=== PATIENT | male | born 1965 | race African-American/Black ===

== ENCOUNTER 2017-09-05 20:37 | Observation (INO) | payer MEDICARE, MEDICAID ==
[~2017-09-05 20:37] MED LIST: ISOVUE-370 76%-LOCM 1 ML ONE
--- NOTE | 2017-09-05 21:28 | RAD ---
PORTABLE AP CHEST X-RAY: 09/05/17 HISTORY: Pain in mid to lower back and chest. Chest pain upon inspiration. COMPARISON: None available. FINDINGS: Cardiac silhouette and bronchovascular markings are accentuated by the portable technique and shallow depth of inspiration. The lungs do appear clear. Postsurgical changes of the lower cervical spine re lated to anterior cervical fusion are noted. Degenerative changes are noted in the thoracic spine. IMPRESSION: No acute cardiopulmonary process. POS: GALINDO
[2017-09-05 22:14] LABS: #Basophils 0.1 thou/uL (0.0-0.2); #Eosinphils 0.1 thou/uL (0.0-0.7); #Lymphocytes 2.5 thou/uL (1.20-3.40); #Monocytes 0.6 thou/uL (0.11-0.59); #Neutrophils 3.9 thou/uL (1.40-6.50); %Basophils 0.9 % (0.0-1.0); %Eosinophils 1.2 % (0.0-10.0); %Lymphocytes 35.2 % (21.0-51.0); %Monocytes 8.3 % (0.0-10.0); %Neutrophils 54.4 % (42.0-75.0); Hemoglobin 11.5 g/dL (14.0-18.0); Mean Corpuscular HGB CONC 34.8 g/dL (32.0-36.0); Mean Corpuscular Hemoglobin 30.9 pg (27.0-31.0); Mean Corpuscular Volume 88.9 fL (78.0-98.0); Mean Platelet Volume 5.7 fL (7.4-10.4); Platelet Count 406 thou/uL (130-400); RBC Distribution Width 12.9 % (11.5-14.5); White Blood Cell (WBC) Count 7.1 thou/uL (4.8-10.8)
[2017-09-05 22:35] LABS: ALT (SGPT) 11 U/L (8-55); AST (SGOT) 8 U/L (5-34); Albumin 3.6 g/dL (3.5-5.0); Alkaline Phosphatase 110 U/L (40-150); Anion Gap 11 mmol/L (10-20); BUN (Urea Nitrogen) 17 mg/dL (8.4-25.7); Bilirubin, Total 0.3 mg/dL (0.2-1.2); Calc. Creatinine Clearance 0 mL/min (70-130); Calcium 9.6 mg/dL (7.8-10.44); Carbon Dioxide 24 mmol/L (22-29); Chloride 109 mmol/L (98-107); Estimated GFR-MDRD 63; Globulin 2.9 g/dL (2.4-3.5); Glucose 121 mg/dL (70-105); Potassium 3.6 mmol/L (3.5-5.1); Protein, Total 6.5 g/dL (6.0-8.3); Sodium 140 mmol/L (136-145)
[2017-09-05 22:39] LABS: CKMB 1.4 ng/mL (0-6.6); Troponin I Less than 0.010 ng/mL (< 0.028)
--- NOTE | 2017-09-06 00:03 | CT ---
CTA ANGIOGRAM THORAX WITH IV CONTRAST AND 3D RECONSTRUCTIONS: 09/05/17 HISTORY: Chest pain with onset of symptoms two days ago. FINDINGS: No filling defects are seen in the central or segmental pulmonary arteries. There is suboptimal evalu ation of the subsegmental pulmonary arteries although no definite filling defects are seen at this le sadia as well. Thoracic aorta is normal in caliber without evidence of an aortic dissection. There are linear bibasilar densities as well as patchy parenchymal changes at each lung base probably related to atelectasis. No pleural effusion is present. There is no evidence of lymphadenopathy. Due to significant artifact in the upper abdomen, the intra-abdominal structures are note well evalua elizabeth due to significant artifact. No gross abnormalities are seen within the upper abdomen. Degenerative changes are seen in the spine. Postsurgical changes of the lower cervical spine are partially imaged related to anterior cervical fu solis. There is prominent degenerative changes involving the sternoclavicular joints bilaterally. IMPRESSION: 1. No CT evidence of a pulmonary embolus. 2. Atelectasis at each lung base. POS: GALINDO
[2017-09-06 01:19] LABS: Troponin I Less than 0.010 ng/mL (< 0.028)
[2017-09-06 05:08] LABS: Troponin I Less than 0.010 ng/mL (< 0.028)
[2017-09-06] MEDS ORDERED: HYDROcodone/Acetaminophen 5/325 mg Tablet PO PRN ×2 (05:31→10:11)
[2017-09-06] MEDS ORDERED: HYDROcodone/Acetaminophen 10/325 mg Tablet PO PRN ×2 (09:45→10:11)
[2017-09-06] MEDS ORDERED: Eucerin (Mineral Oil/Petrolatum,White) 30 gm Jar TOP PRN (09:46)
[2017-09-06] MEDS ORDERED: Polyethylene Glycol 3350 17 GM Packet PO PRN (09:46)
[2017-09-06] MEDS ORDERED: Aspirin 81 mg Enteric Coated Tablet PO SCH (11:30)
[2017-09-06] MEDS: HYDROcodone/Acetaminophen 10/325 mg Tablet PO PRN ×2 (11:52→19:06)
[2017-09-06] MEDS ORDERED: Ondansetron HCl/PF 4 MG/2 ML Vial IVP PRN (11:53)
[2017-09-06] MEDS ORDERED: Dextrose 50% Abboject 50 ML SYRINGE SLOW IVP PRN (11:53)
[2017-09-06] MEDS ORDERED: Dextrose 5% in Water 1,000 ML IV PRN (11:53)
[2017-09-06] MEDS ORDERED: Mag-Al 1200 mg/1200 mg/30 ML UDCUP PO PRN (11:53)
[2017-09-06] MEDS ORDERED: Acetaminophen 325 MG TAB PO PRN (11:53)
[2017-09-06] MEDS ORDERED: Milk Of Magnesia 30 ML UDCUP PO PRN (11:53)
[2017-09-06] MEDS ORDERED: Calcium Carbonate 500 MG ChewTAB PO PRN (11:53)
[2017-09-06] MEDS ORDERED: Insulin Regular 300 UNITS/3 ML VIAL SC PRN (11:53)
[2017-09-06] MEDS ORDERED: Bisacodyl 10 MG SUPP PR PRN (11:53)
[2017-09-06] MEDS ORDERED: Ondansetron ODT 4 MG TAB PO PRN (11:53)
[2017-09-06] MEDS ORDERED: Nitroglycerin 0.4 MG TAB (25 Tab Bottle) PO PRN (11:53)
[2017-09-06] MEDS ORDERED: ALPRAZolam 0.25 MG TAB PO PRN (11:56)
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
[2017-09-06] MEDS ORDERED: Tamsulosin HCl 0.4 MG CAP PO SCH (12:30)
--- NOTE | 2017-09-06 15:32 | DIS ---
DATE OF DISCHARGE: 09/06/2017 DISCHARGE DISPOSITION: Home. FOLLOWUP: With primary care physician at [facility], Dr. Garrick Blakely as scheduled. The pat ieshiela was advised to follow up with his primary medical biller. BRIEF HOSPITAL COURSE: Patient was admitted earlier today with chest discomfort. Please refer to th e history and physical dictated by me earlier today for details. The patient was admitted to the hospital with a diagnosis of chest discomfort, rule out acute coronar y syndrome. He had a negative stress test last month at [facility] per patient report. He was evaluated by Cardiology, Dr. Zavala. Dr. Zavala has cleared the patient for discharge. He was advi sed to resume anticoagulation for a recent pulmonary embolism. His CT angiogram of the chest was neg ative for pulmonary embolism this admission. He is cleared by Cardiology for discharge. FINAL DIAGNOSES: 1. Chest discomfort, acute coronary syndrome ruled out. 2. Recent negative stress test. 3. Hypertension. 4. Diabetes mellitus, type 2. 5. Morbid obesity with a BMI of 46.8. 6. Chronic kidney disease, stage 2. 7. Obstructive sleep apnea. 8. History of pulmonary embolism, on anticoagulation. 9. Chronic pain syndrome. 10. Benign prostatic hypertrophy. 11. Chronic bedridden status, due to back injury in the past. Plan of care was discussed with the patient in detail. He stated understanding.
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
[2017-09-06] MEDS: Famotidine 20 MG TAB PO SCH (21:08)
[2017-09-06] MEDS: Allopurinol 300 MG TAB PO SCH (21:08)
[2017-09-06] MEDS: Apixaban 5 MG TAB PO SCH (21:08)
[2017-09-06] MEDS: Lisinopril 5 MG TAB PO SCH (21:08)
[2017-09-06] MEDS: Senokot S 8.6-50 MG TAB PO SCH (21:09)
[2017-09-07] MEDS: HYDROcodone/Acetaminophen 10/325 mg Tablet PO PRN ×2 (04:38→20:49)
[2017-09-07 05:07] LABS: #Eosinphils 0.1 thou/uL (0.0-0.7); #Lymphocytes 1.8 thou/uL (1.20-3.40); #Monocytes 0.5 thou/uL (0.11-0.59); #Neutrophils 4.3 thou/uL (1.40-6.50); %Basophils 0.4 % (0.0-1.0); %Lymphocytes 26.4 % (21.0-51.0); %Monocytes 6.8 % (0.0-10.0); %Neutrophils 65.4 % (42.0-75.0); Hemoglobin 11.9 g/dL (14.0-18.0); Mean Corpuscular HGB CONC 32.6 g/dL (32.0-36.0); Mean Corpuscular Volume 89.1 fL (78.0-98.0); Mean Platelet Volume 6.3 fL (7.4-10.4); Platelet Count 442 thou/uL (130-400); RBC Distribution Width 13.1 % (11.5-14.5); Red Blood Cell (RBC) Count 4.08 mill/uL (4.70-6.10); White Blood Cell (WBC) Count 6.6 thou/uL (4.8-10.8)
[2017-09-07 05:09] LABS: Anion Gap 13 mmol/L (10-20); BUN (Urea Nitrogen) 14 mg/dL (8.4-25.7); Calc. Creatinine Clearance 162 mL/min (70-130); Calcium 10.4 mg/dL (7.8-10.44); Carbon Dioxide 24 mmol/L (22-29); Chloride 107 mmol/L (98-107); Estimated GFR-MDRD 76; Glucose 135 mg/dL (70-105); Magnesium 1.6 mg/dL (1.6-2.6); Potassium 3.9 mmol/L (3.5-5.1); Sodium 140 mmol/L (136-145)
[2017-09-07] MEDS: Bupropion 150 MG SR TAB PO SCH (08:56)
[2017-09-07] MEDS: Senokot S 8.6-50 MG TAB PO SCH ×2 (08:56→20:49)
[2017-09-07] MEDS: Tamsulosin HCl 0.4 MG CAP PO SCH (08:56)
[2017-09-07] MEDS: Apixaban 5 MG TAB PO SCH ×2 (08:56→20:49)
[2017-09-07] MEDS: Famotidine 20 MG TAB PO SCH ×2 (08:56→20:49)
[2017-09-07] MEDS: Aspirin 81 mg Enteric Coated Tablet PO SCH (08:56)
[2017-09-07] MEDS: Lisinopril 5 MG TAB PO SCH ×2 (08:56→20:49)
--- NOTE | 2017-09-07 11:38 | PDOC.CTH ---
Cardiology Progress Note - Subjective No new issues. Continues to have pain on palpation and when leaning on the left side. - Objective Vital Signs Temp Pulse Resp BP BP Pulse Ox 09/07/17 08:38 97.9 F 87 18 129/92 H 98 09/07/17 04:00 98.1 F 98 18 152/103 H 95 Weight 355 lb 1 oz 09/06/17 09/07/17 09/08/17 06:59 06:59 06:59 Intake Total 400 2780 Balance 400 2780 - Physical Examination General/Neuro: alert & oriented x3, NAD Neck: no JVD present Lungs: CTA, unlabored respirations Heart: RRR Abdomen: NT/ND Extremities: + edema B (1+) - Telemetry Telemetry Rhythm: NSR - Labs Result Diagrams: 09/07/17 04:13 09/07/17 04:13 Troponin/CKMB CK-MB (CK-2) 1.4 ng/mL (0-6.6) 09/05/17 22:03 Troponin I Less than 0.010 ng/mL (< 0.028) 09/06/17 04:32 - Assessment/Plan 1. Musculoskeletal chest pain PLAN: - No new recs. - Will sign off. - Please call with any questions.
[2017-09-07] MEDS: Insulin Regular 300 UNITS/3 ML VIAL SC PRN (11:55)
--- NOTE | 2017-09-07 13:50 | PDOC.PN ---
- Subjective Encounter Start Date: 09/07/17 Encounter Start Time: 10:00 Patient seen and examined for CP. Didn't leave yesterday due to social issues. No new complaints. No overnight events - Objective Resuscitation Status: Resuscitation Status FULL:Full Resuscitation MAR Reviewed: Yes Vital Signs & Weight: Vital Signs (12 hours) Temp Pulse Pulse Pulse Resp BP BP 09/07/17 11:51 99.1 F 85 16 140/84 09/07/17 11:00 86 88 130/82 09/07/17 08:38 97.9 F 87 18 129/92 H 09/07/17 04:00 98.1 F 98 18 BP BP Pulse Ox 09/07/17 11:51 98 09/07/17 11:00 140/84 09/07/17 08:38 98 09/07/17 04:00 152/103 H 95 Weight Weight 355 lb 1 oz I&O: 09/06/17 09/07/17 09/08/17 06:59 06:59 06:59 Intake Total 400 2780 Balance 400 2780 Result Diagrams: 09/07/17 04:13 09/07/17 04:13 Additional Labs: Accuchecks 09/07/17 09/07/17 09/06/17 11:30 05:44 20:50 POC Glucose 173 H 156 H 137 H 09/06/17 16:46 POC Glucose 107 EKG Reviewed by me: Yes (Tele SR) Phys Exam - Physical Examination Constitutional: NAD Respiratory: no wheezing, no rhonchi Cardiovascular: RRR, no rub Gastrointestinal: soft, non-tender, positive bowel sounds Musculoskeletal: no edema Neurological: moves all 4 limbs Dx/Plan - Plan DVT proph w/SCDs FINAL DIAGNOSES: 1. Chest discomfort, acute coronary syndrome ruled out. 2. Recent negative stress test. 3. Hypertension. 4. Diabetes mellitus, type 2. 5. Morbid obesity with a BMI of 46.8. 6. Chronic kidney disease, stage 2. 7. Obstructive sleep apnea. 8. History of pulmonary embolism, on anticoagulation. 9. Chronic pain syndrome. 10. Benign prostatic hypertrophy. 11. Chronic bedridden status, due to back injury in the past. PLAN: Await placement Stable for dc Review of Systems - Review of Systems Respiratory: negative: Cough, Dry, Shortness of Breath, Hemoptysis, SOB with Excertion, Pleuritic Pain, Sputum, Wheezing Cardiovascular: negative: chest pain, palpitations, orthopnea, paroxysmal nocturnal dyspnea, edema, light headedness, other - Medications/Allergies Allergies/Adverse Reactions: Allergies Allergy/AdvReac Type Severity Reaction Status Date / Time No Known Allergies Allergy Verified 09/06/17 04:37 Medications: Current Medications Acetaminophen (Tylenol) 650 mg PO Q4H PRN PRN Reason: Headache/Fever or Pain Hydrocodone Bitart/Acetaminophen ([place] 5/325) 1 tab PO Q6H PRN PRN Reason: Mild Pain (1-3) Hydrocodone Bitart/Acetaminophen ([place] 10/325) 1 tab PO Q6H PRN PRN Reason: Moderate Pain (4-6) Last Admin: 09/07/17 04:38 Dose: 1 tab Al Hydroxide/Mg Hydroxide (Maalox) 30 ml PO Q6H PRN PRN Reason: Heartburn or Indigestion Allopurinol (Zyloprim) 300 mg PO [facility] Last Admin: 09/06/17 21:08 Dose: 300 mg Apixaban (Eliquis) 5 mg PO BID [facility] Last Admin: 09/07/17 08:56 Dose: 5 mg Aspirin (Ecotrin) 81 mg PO DAILY [facility] Last Admin: 09/07/17 08:56 Dose: 81 mg Bisacodyl (Dulcolax) 10 mg [place] Q24H PRN PRN Reason: Constipation Bupropion HCl (Wellbutrin Sr) 150 mg PO DAILY [facility] Last Admin: 09/07/17 08:56 Dose: 150 mg Calcium Carbonate (Tums) 1,000 mg PO Q4H PRN PRN Reason: Heartburn or Indigestion Dextrose/Water (Dextrose 50%) 25 gm SLOW IVP PRN PRN PRN Reason: Hypoglycemia Famotidine (Pepcid) 20 mg PO BID [facility] Last Admin: 09/07/17 08:56 Dose: 20 mg Glucagon (Glucagon) 1 mg IM PRN PRN PRN Reason: Hypoglycemia Dextrose/Water (D5w) 1,000 mls @ 0 mls/hr IV .Q0M PRN; As Directed PRN Reason: Hypoglycemia Insulin Human Regular (Humulin R) 0 units SC .MILD SLIDING SCALE PRN PRN Reason: Mild Correctional Scale Last Admin: 09/07/17 11:55 Dose: 2 unit Insulin Human Regular (Humulin R) 0 units SC .BEDTIME SLIDING SC PRN PRN Reason: Bedtime Correctional Scale Lisinopril (Zestril) 5 mg PO BID [facility] Last Admin: 09/07/17 08:56 Dose: 5 mg Magnesium Hydroxide (Milk Of Magnesium) 30 ml PO DAILYPRN PRN PRN Reason: Constipation Mineral Oil/White Petrolatum (Eucerin Cream) 0 gm TOP BIDPRN PRN PRN Reason: Dry Skin Nitroglycerin (Nitrostat) 0.4 mg PO Q5MIN PRN PRN Reason: Chest Pain Ondansetron HCl (Zofran Odt) 4 mg PO Q6H PRN PRN Reason: Nausea/Vomiting Ondansetron HCl (Zofran) 4 mg IVP Q6H PRN PRN Reason: Nausea/Vomiting Polyethylene Glycol (Miralax) 17 gm PO DAILY PRN PRN Reason: Constipation Senna/Docusate Sodium (Senokot S) 1 tab PO BID [facility] Last Admin: 09/07/17 08:56 Dose: 1 tab Tamsulosin HCl (Flomax) 0.4 mg PO DAILY [facility] Last Admin: 09/07/17 08:56 Dose: 0.4 mg
[2017-09-07] MEDS: Allopurinol 300 MG TAB PO SCH (20:49)
[2017-09-08] MEDS: HYDROcodone/Acetaminophen 10/325 mg Tablet PO PRN ×4 (03:01→20:37)
[2017-09-08] MEDS ORDERED: Lisinopril 10 MG TAB PO SCH (06:30)
[2017-09-08] MEDS: Senokot S 8.6-50 MG TAB PO SCH ×2 (07:39→20:37)
[2017-09-08] MEDS: Apixaban 5 MG TAB PO SCH ×2 (07:39→20:36)
[2017-09-08] MEDS: Famotidine 20 MG TAB PO SCH ×2 (07:40→20:36)
[2017-09-08] MEDS: Aspirin 81 mg Enteric Coated Tablet PO SCH (07:40)
[2017-09-08] MEDS: Tamsulosin HCl 0.4 MG CAP PO SCH (07:40)
[2017-09-08] MEDS: Bupropion 150 MG SR TAB PO SCH (09:16)
[2017-09-08] MEDS ORDERED: HYDROcodone/Acetaminophen 5/325 mg Tablet PO PRN (20:19)
[2017-09-08] MEDS ORDERED: Metamucil PACK PO PRN (20:20)
[2017-09-08] MEDS: Allopurinol 300 MG TAB PO SCH (20:36)
[2017-09-08] MEDS: Lisinopril 5 MG TAB PO SCH (20:37)
--- NOTE | 2017-09-08 22:16 | PDOC.PN ---
- Subjective Encounter Start Date: 09/08/17 Encounter Start Time: 15:00 Patient seen and examined for CP. No new complaints. No overnight events - Objective Resuscitation Status: Resuscitation Status FULL:Full Resuscitation MAR Reviewed: Yes Vital Signs & Weight: Vital Signs (12 hours) Pulse BP 09/08/17 20:37 80 157/107 H Weight Weight 355 lb 1 oz I&O: 09/07/17 09/08/17 09/09/17 06:59 06:59 06:59 Intake Total 2780 1320 1080 Balance 2780 1320 1080 Result Diagrams: 09/07/17 04:13 09/07/17 04:13 Additional Labs: Accuchecks 09/08/17 09/08/17 09/08/17 19:32 16:34 11:14 POC Glucose 140 H 125 H 204 H 09/08/17 05:57 POC Glucose 128 H Phys Exam - Physical Examination Constitutional: NAD Respiratory: no wheezing, no rhonchi Cardiovascular: RRR, no rub Gastrointestinal: soft, non-tender, positive bowel sounds Musculoskeletal: no edema Neurological: moves all 4 limbs Dx/Plan - Plan DVT proph w/SCDs FINAL DIAGNOSES: 1. Chest discomfort, acute coronary syndrome ruled out. 2. Recent negative stress test. 3. Hypertension. 4. Diabetes mellitus, type 2. 5. Morbid obesity with a BMI of 46.8. 6. Chronic kidney disease, stage 2. 7. Obstructive sleep apnea. 8. History of pulmonary embolism, on anticoagulation. 9. Chronic pain syndrome. 10. Benign prostatic hypertrophy. 11. Chronic bedridden status, due to back injury in the past. PLAN: Await placement Stable for dc Review of Systems - Review of Systems Respiratory: negative: Cough, Dry, Shortness of Breath, Hemoptysis, SOB with Excertion, Pleuritic Pain, Sputum, Wheezing Cardiovascular: negative: chest pain, palpitations, orthopnea, paroxysmal nocturnal dyspnea, edema, light headedness, other - Medications/Allergies Allergies/Adverse Reactions: Allergies Allergy/AdvReac Type Severity Reaction Status Date / Time No Known Allergies Allergy Verified 09/06/17 04:37 Medications: Current Medications Acetaminophen (Tylenol) 650 mg PO Q4H PRN PRN Reason: Headache/Fever or Pain Hydrocodone Bitart/Acetaminophen ([place] 5/325) 1 tab PO Q4H PRN PRN Reason: Mild Pain (1-3) Hydrocodone Bitart/Acetaminophen ([place] 10/325) 1 tab PO Q4H PRN PRN Reason: Moderate Pain (4-6) Last Admin: 09/08/17 20:37 Dose: 1 tab Al Hydroxide/Mg Hydroxide (Maalox) 30 ml PO Q6H PRN PRN Reason: Heartburn or Indigestion Allopurinol (Zyloprim) 300 mg PO HS [facility] Last Admin: 09/08/17 20:36 Dose: 300 mg Apixaban (Eliquis) 5 mg PO BID [facility] Last Admin: 09/08/17 20:36 Dose: 5 mg Aspirin (Ecotrin) 81 mg PO DAILY [facility] Last Admin: 09/08/17 07:40 Dose: 81 mg Bisacodyl (Dulcolax) 10 mg [place] Q24H PRN PRN Reason: Constipation Bupropion HCl (Wellbutrin Sr) 150 mg PO DAILY [facility] Last Admin: 09/08/17 09:16 Dose: 150 mg Calcium Carbonate (Tums) 1,000 mg PO Q4H PRN PRN Reason: Heartburn or Indigestion Dextrose/Water (Dextrose 50%) 25 gm SLOW IVP PRN PRN PRN Reason: Hypoglycemia Famotidine (Pepcid) 20 mg PO BID [facility] Last Admin: 09/08/17 20:36 Dose: 20 mg Glucagon (Glucagon) 1 mg IM PRN PRN PRN Reason: Hypoglycemia Dextrose/Water (D5w) 1,000 mls @ 0 mls/hr IV .Q0M PRN; As Directed PRN Reason: Hypoglycemia Insulin Human Regular (Humulin R) 0 units SC .MILD SLIDING SCALE PRN PRN Reason: Mild Correctional Scale Last Admin: 09/07/17 11:55 Dose: 2 unit Insulin Human Regular (Humulin R) 0 units SC .BEDTIME SLIDING SC PRN PRN Reason: Bedtime Correctional Scale Lisinopril (Zestril) 10 mg PO QAM [facility] Lisinopril (Zestril) 5 mg PO HS [facility] Last Admin: 09/08/17 20:37 Dose: 5 mg Magnesium Hydroxide (Milk Of Magnesium) 30 ml PO DAILYPRN PRN PRN Reason: Constipation Mineral Oil/White Petrolatum (Eucerin Cream) 0 gm TOP BIDPRN PRN PRN Reason: Dry Skin Nitroglycerin (Nitrostat) 0.4 mg PO Q5MIN PRN PRN Reason: Chest Pain Ondansetron HCl (Zofran Odt) 4 mg PO Q6H PRN PRN Reason: Nausea/Vomiting Ondansetron HCl (Zofran) 4 mg IVP Q6H PRN PRN Reason: Nausea/Vomiting Polyethylene Glycol (Miralax) 17 gm PO DAILY PRN PRN Reason: Constipation Psyllium Hydrophilic Mucilloid (Metamucil) 1 pk PO DAILYPRN PRN PRN Reason: CONSTIPATION Last Admin: 09/08/17 20:36 Dose: 1 pk Senna/Docusate Sodium (Senokot S) 1 tab PO BID [facility] Last Admin: 09/08/17 20:37 Dose: 1 tab Tamsulosin HCl (Flomax) 0.4 mg PO DAILY [facility] Last Admin: 09/08/17 07:40 Dose: 0.4 mg
[2017-09-09] MEDS: HYDROcodone/Acetaminophen 10/325 mg Tablet PO PRN ×3 (04:42→21:17)
[2017-09-09] MEDS: Bupropion 150 MG SR TAB PO SCH (08:01)
[2017-09-09] MEDS: Senokot S 8.6-50 MG TAB PO SCH ×2 (08:01→21:17)
[2017-09-09] MEDS: Aspirin 81 mg Enteric Coated Tablet PO SCH (08:01)
[2017-09-09] MEDS: Lisinopril 10 MG TAB PO SCH (08:01)
[2017-09-09] MEDS: Famotidine 20 MG TAB PO SCH ×2 (08:01→21:17)
[2017-09-09] MEDS: Apixaban 5 MG TAB PO SCH ×2 (08:01→21:16)
[2017-09-09] MEDS: Tamsulosin HCl 0.4 MG CAP PO SCH (08:01)
[2017-09-09] MEDS: tiZANidine HCl 4 MG TAB PO PRN ×2 (17:26→22:34)
[2017-09-09] MEDS: Lisinopril 5 MG TAB PO SCH (21:16)
[2017-09-09] MEDS: Allopurinol 300 MG TAB PO SCH (21:17)
--- NOTE | 2017-09-09 23:47 | PDOC.PN ---
- Subjective Encounter Start Date: 09/09/17 Encounter Start Time: 12:00 Patient seen and examined for CP. No new complaints. No overnight events - Objective Resuscitation Status: Resuscitation Status FULL:Full Resuscitation MAR Reviewed: Yes Vital Signs & Weight: Vital Signs (12 hours) Temp Pulse Resp BP BP Pulse Ox 09/09/17 21:16 86 115/70 09/09/17 19:28 98.2 F 86 16 115/70 94 L 09/09/17 16:00 98.1 F 93 22 H 151/89 H 96 09/09/17 12:00 97.8 F 95 22 H 128/85 94 L Weight Weight 355 lb 1.012 oz I&O: 09/08/17 09/09/17 09/10/17 06:59 06:59 06:59 Intake Total 1320 2980 Output Total 1000 Balance 1320 1980 Result Diagrams: 09/10/17 04:39 09/10/17 04:39 Additional Labs: Accuchecks 09/09/17 09/09/17 09/09/17 21:18 16:59 11:22 POC Glucose 139 H 152 H 143 H 09/09/17 04:44 POC Glucose 132 H Phys Exam - Physical Examination Constitutional: NAD Respiratory: no wheezing, no rhonchi Cardiovascular: RRR, no rub Gastrointestinal: soft, non-tender, positive bowel sounds Musculoskeletal: no edema Neurological: moves all 4 limbs Dx/Plan - Plan DVT proph w/SCDs FINAL DIAGNOSES: 1. Chest discomfort, acute coronary syndrome ruled out. 2. Recent negative stress test. 3. Hypertension. 4. Diabetes mellitus, type 2. 5. Morbid obesity with a BMI of 46.8. 6. Chronic kidney disease, stage 2. 7. Obstructive sleep apnea. 8. History of pulmonary embolism, on anticoagulation. 9. Chronic pain syndrome. 10. Benign prostatic hypertrophy. 11. Chronic bedridden status, due to back injury in the past. PLAN: Await placement Stable for dc since 09/06 Review of Systems - Review of Systems Respiratory: negative: Cough, Dry, Shortness of Breath, Hemoptysis, SOB with Excertion, Pleuritic Pain, Sputum, Wheezing Cardiovascular: negative: chest pain, palpitations, orthopnea, paroxysmal nocturnal dyspnea, edema, light headedness, other - Medications/Allergies Allergies/Adverse Reactions: Allergies Allergy/AdvReac Type Severity Reaction Status Date / Time No Known Allergies Allergy Verified 09/06/17 04:37 Medications: Current Medications Acetaminophen (Tylenol) 650 mg PO Q4H PRN PRN Reason: Headache/Fever or Pain Hydrocodone Bitart/Acetaminophen ([place] 5/325) 1 tab PO Q4H PRN PRN Reason: Mild Pain (1-3) Hydrocodone Bitart/Acetaminophen ([place] 10/325) 1 tab PO Q4H PRN PRN Reason: Moderate Pain (4-6) Last Admin: 09/09/17 21:17 Dose: 1 tab Al Hydroxide/Mg Hydroxide (Maalox) 30 ml PO Q6H PRN PRN Reason: Heartburn or Indigestion Allopurinol (Zyloprim) 300 mg PO HS [facility] Last Admin: 09/09/17 21:17 Dose: 300 mg Apixaban (Eliquis) 5 mg PO BID [facility] Last Admin: 09/09/17 21:16 Dose: 5 mg Aspirin (Ecotrin) 81 mg PO DAILY [facility] Last Admin: 09/09/17 08:01 Dose: 81 mg Bisacodyl (Dulcolax) 10 mg [place] Q24H PRN PRN Reason: Constipation Bupropion HCl (Wellbutrin Sr) 150 mg PO DAILY [facility] Last Admin: 09/09/17 08:01 Dose: 150 mg Calcium Carbonate (Tums) 1,000 mg PO Q4H PRN PRN Reason: Heartburn or Indigestion Dextrose/Water (Dextrose 50%) 25 gm SLOW IVP PRN PRN PRN Reason: Hypoglycemia Famotidine (Pepcid) 20 mg PO BID [facility] Last Admin: 09/09/17 21:17 Dose: 20 mg Glucagon (Glucagon) 1 mg IM PRN PRN PRN Reason: Hypoglycemia Dextrose/Water (D5w) 1,000 mls @ 0 mls/hr IV .Q0M PRN; As Directed PRN Reason: Hypoglycemia Insulin Human Regular (Humulin R) 0 units [place] .MILD SLIDING SCALE PRN PRN Reason: Mild Correctional Scale Last Admin: 09/07/17 11:55 Dose: 2 unit Insulin Human Regular (Humulin R) 0 units [place] .BEDTIME SLIDING [place] PRN PRN Reason: Bedtime Correctional Scale Lisinopril (Zestril) 10 mg PO QAM [facility] Last Admin: 09/09/17 08:01 Dose: 10 mg Lisinopril (Zestril) 5 mg PO HS [facility] Last Admin: 09/09/17 21:16 Dose: 5 mg Magnesium Hydroxide (Milk Of Magnesium) 30 ml PO DAILYPRN PRN PRN Reason: Constipation Mineral Oil/White Petrolatum (Eucerin Cream) 0 gm TOP BIDPRN PRN PRN Reason: Dry Skin Nitroglycerin (Nitrostat) 0.4 mg PO Q5MIN PRN PRN Reason: Chest Pain Ondansetron HCl (Zofran Odt) 4 mg PO Q6H PRN PRN Reason: Nausea/Vomiting Last Admin: 09/09/17 04:42 Dose: 4 mg Ondansetron HCl (Zofran) 4 mg IVP Q6H PRN PRN Reason: Nausea/Vomiting Polyethylene Glycol (Miralax) 17 gm PO DAILY PRN PRN Reason: Constipation Psyllium Hydrophilic Mucilloid (Metamucil) 1 pk PO DAILYPRN PRN PRN Reason: CONSTIPATION Last Admin: 09/08/17 20:36 Dose: 1 pk Senna/Docusate Sodium (Senokot S) 1 tab PO BID [facility] Last Admin: 09/09/17 21:17 Dose: 1 tab Tamsulosin HCl (Flomax) 0.4 mg PO DAILY [facility] Last Admin: 09/09/17 08:01 Dose: 0.4 mg Tizanidine HCl (Zanaflex) 4 mg PO BID PRN PRN Reason: Muscle Spasm Last Admin: 09/09/17 22:34 Dose: 4 mg
[2017-09-10] MEDS: HYDROcodone/Acetaminophen 10/325 mg Tablet PO PRN ×2 (02:38→11:32)
[2017-09-10 05:24] LABS: #Basophils 0.1 thou/uL (0.0-0.2); #Eosinphils 0.1 thou/uL (0.0-0.7); #Lymphocytes 2.4 thou/uL (1.20-3.40); #Monocytes 0.5 thou/uL (0.11-0.59); #Neutrophils 3.1 thou/uL (1.40-6.50); %Basophils 1.2 % (0.0-1.0); %Eosinophils 1.2 % (0.0-10.0); %Lymphocytes 39.1 % (21.0-51.0); %Monocytes 7.6 % (0.0-10.0); %Neutrophils 50.9 % (42.0-75.0); Hemoglobin 11.5 g/dL (14.0-18.0); Mean Corpuscular HGB CONC 33.9 g/dL (32.0-36.0); Mean Corpuscular Hemoglobin 30.3 pg (27.0-31.0); Mean Corpuscular Volume 89.2 fL (78.0-98.0); Mean Platelet Volume 5.9 fL (7.4-10.4); Platelet Count 371 thou/uL (130-400); RBC Distribution Width 12.9 % (11.5-14.5); Red Blood Cell (RBC) Count 3.78 mill/uL (4.70-6.10); White Blood Cell (WBC) Count 6.2 thou/uL (4.8-10.8)
[2017-09-10 05:43] LABS: Anion Gap 12 mmol/L (10-20); BUN (Urea Nitrogen) 10 mg/dL (8.4-25.7); Calc. Creatinine Clearance 163 mL/min (70-130); Carbon Dioxide 25 mmol/L (22-29); Chloride 106 mmol/L (98-107); Estimated GFR-MDRD 76; Glucose 98 mg/dL (70-105); Potassium 3.7 mmol/L (3.5-5.1); Sodium 139 mmol/L (136-145)
[2017-09-10] MEDS: Apixaban 5 MG TAB PO SCH ×2 (08:44→20:58)
[2017-09-10] MEDS: Famotidine 20 MG TAB PO SCH ×2 (08:44→20:58)
[2017-09-10] MEDS: Tamsulosin HCl 0.4 MG CAP PO SCH (08:44)
[2017-09-10] MEDS: Aspirin 81 mg Enteric Coated Tablet PO SCH (08:44)
[2017-09-10] MEDS: Bupropion 150 MG SR TAB PO SCH (08:44)
[2017-09-10] MEDS: Lisinopril 10 MG TAB PO SCH (08:45)
[2017-09-10] MEDS: Senokot S 8.6-50 MG TAB PO SCH ×2 (08:45→21:01)
[2017-09-10] MEDS: tiZANidine HCl 4 MG TAB PO PRN (11:32)
[2017-09-10] MEDS: ALPRAZolam 0.25 MG TAB PO PRN (18:23)
--- NOTE | 2017-09-10 18:47 | PDOC.PN ---
- Subjective Encounter Start Date: 09/10/17 Encounter Start Time: 15:00 Patient seen and examined for CP. No new complaints. No overnight events - Objective Resuscitation Status: Resuscitation Status FULL:Full Resuscitation MAR Reviewed: Yes Vital Signs & Weight: Vital Signs (12 hours) Temp Pulse Resp BP BP Pulse Ox 09/10/17 08:45 143/94 H 09/10/17 08:00 98.0 F 80 26 H 143/94 H 94 L Weight Weight 355 lb 1.012 oz I&O: 09/09/17 09/10/17 09/11/17 06:59 06:59 06:59 Intake Total 2980 1200 2000 Output Total 1000 Balance 1980 1200 1999 Result Diagrams: 09/10/17 04:39 09/10/17 04:39 Additional Labs: Accuchecks 09/10/17 09/10/17 09/10/17 18:22 17:59 16:41 POC Glucose 107 87 99 09/10/17 09/10/17 09/09/17 10:35 06:02 21:18 POC Glucose 128 H 120 H 139 H Phys Exam - Physical Examination Constitutional: NAD Respiratory: no wheezing, no rhonchi Cardiovascular: RRR, no rub Gastrointestinal: soft, non-tender, positive bowel sounds Musculoskeletal: no edema Neurological: moves all 4 limbs Dx/Plan - Plan DVT proph w/SCDs FINAL DIAGNOSES: 1. Chest discomfort, acute coronary syndrome ruled out. 2. Recent negative stress test. 3. Hypertension. 4. Diabetes mellitus, type 2. 5. Morbid obesity with a BMI of 46.8. 6. Chronic kidney disease, stage 2. 7. Obstructive sleep apnea. 8. History of pulmonary embolism, on anticoagulation. 9. Chronic pain syndrome. 10. Benign prostatic hypertrophy. 11. Chronic bedridden status, due to back injury in the past. PLAN: Await placement Stable for dc since 09/06 Review of Systems - Review of Systems Respiratory: negative: Cough, Dry, Shortness of Breath, Hemoptysis, SOB with Excertion, Pleuritic Pain, Sputum, Wheezing Cardiovascular: negative: chest pain, palpitations, orthopnea, paroxysmal nocturnal dyspnea, edema, light headedness, other - Medications/Allergies Allergies/Adverse Reactions: Allergies Allergy/AdvReac Type Severity Reaction Status Date / Time No Known Allergies Allergy Verified 09/06/17 04:37 Medications: Current Medications Acetaminophen (Tylenol) 650 mg PO Q4H PRN PRN Reason: Headache/Fever or Pain Hydrocodone Bitart/Acetaminophen ([place] 5/325) 1 tab PO Q4H PRN PRN Reason: Mild Pain (1-3) Hydrocodone Bitart/Acetaminophen ([place] 10/325) 1 tab PO Q4H PRN PRN Reason: Moderate Pain (4-6) Last Admin: 09/10/17 11:32 Dose: 1 tab Al Hydroxide/Mg Hydroxide (Maalox) 30 ml PO Q6H PRN PRN Reason: Heartburn or Indigestion Allopurinol (Zyloprim) 300 mg PO HS [facility] Last Admin: 09/09/17 21:17 Dose: 300 mg Alprazolam (Xanax) 0.25 mg PO BIDPRN PRN PRN Reason: Anxiety Last Admin: 09/10/17 18:23 Dose: 0.25 mg Apixaban (Eliquis) 5 mg PO BID [facility] Last Admin: 09/10/17 08:44 Dose: 5 mg Aspirin (Ecotrin) 81 mg PO DAILY [facility] Last Admin: 09/10/17 08:44 Dose: 81 mg Bisacodyl (Dulcolax) 10 mg [place] Q24H PRN PRN Reason: Constipation Bupropion HCl (Wellbutrin Sr) 150 mg PO DAILY [facility] Last Admin: 09/10/17 08:44 Dose: 150 mg Calcium Carbonate (Tums) 1,000 mg PO Q4H PRN PRN Reason: Heartburn or Indigestion Dextrose/Water (Dextrose 50%) 25 gm SLOW IVP PRN PRN PRN Reason: Hypoglycemia Famotidine (Pepcid) 20 mg PO BID [facility] Last Admin: 09/10/17 08:44 Dose: 20 mg Glucagon (Glucagon) 1 mg IM PRN PRN PRN Reason: Hypoglycemia Dextrose/Water (D5w) 1,000 mls @ 0 mls/hr IV .Q0M PRN; As Directed PRN Reason: Hypoglycemia Insulin Human Regular (Humulin R) 0 units [place] .MILD SLIDING SCALE PRN PRN Reason: Mild Correctional Scale Last Admin: 09/07/17 11:55 Dose: 2 unit Insulin Human Regular (Humulin R) 0 units [place] .BEDTIME SLIDING SC PRN PRN Reason: Bedtime Correctional Scale Lisinopril (Zestril) 10 mg PO QAM [facility] Last Admin: 09/10/17 08:45 Dose: 10 mg Lisinopril (Zestril) 5 mg PO HS [facility] Last Admin: 09/09/17 21:16 Dose: 5 mg Magnesium Hydroxide (Milk Of Magnesium) 30 ml PO DAILYPRN PRN PRN Reason: Constipation Mineral Oil/White Petrolatum (Eucerin Cream) 0 gm TOP BIDPRN PRN PRN Reason: Dry Skin Nitroglycerin (Nitrostat) 0.4 mg PO Q5MIN PRN PRN Reason: Chest Pain Nystatin (Mycostatin Powder) 0 gm TOP BID [facility] Ondansetron HCl (Zofran Odt) 4 mg PO Q6H PRN PRN Reason: Nausea/Vomiting Last Admin: 09/09/17 04:42 Dose: 4 mg Ondansetron HCl (Zofran) 4 mg IVP Q6H PRN PRN Reason: Nausea/Vomiting Polyethylene Glycol (Miralax) 17 gm PO DAILY PRN PRN Reason: Constipation Psyllium Hydrophilic Mucilloid (Metamucil) 1 pk PO DAILYPRN PRN PRN Reason: CONSTIPATION Last Admin: 09/08/17 20:36 Dose: 1 pk Senna/Docusate Sodium (Senokot S) 1 tab PO BID [facility] Last Admin: 09/10/17 08:45 Dose: 1 tab Tamsulosin HCl (Flomax) 0.4 mg PO DAILY [facility] Last Admin: 09/10/17 08:44 Dose: 0.4 mg Tizanidine HCl (Zanaflex) 4 mg PO BID PRN PRN Reason: Muscle Spasm Last Admin: 09/10/17 11:32 Dose: 4 mg
[2017-09-10] MEDS: Allopurinol 300 MG TAB PO SCH (20:58)
[2017-09-10] MEDS: Lisinopril 5 MG TAB PO SCH (20:58)
[2017-09-10] MEDS: Nystatin Powder 15 GM BOT TOP SCH (21:01)
[2017-09-11] MEDS: tiZANidine HCl 4 MG TAB PO PRN ×2 (00:47→21:45)
[2017-09-11] MEDS: HYDROcodone/Acetaminophen 10/325 mg Tablet PO PRN ×2 (01:01→21:45)
[2017-09-11] MEDS: Senokot S 8.6-50 MG TAB PO SCH ×2 (09:40→21:43)
[2017-09-11] MEDS: Tamsulosin HCl 0.4 MG CAP PO SCH (09:40)
[2017-09-11] MEDS: Lisinopril 10 MG TAB PO SCH (09:40)
[2017-09-11] MEDS: Apixaban 5 MG TAB PO SCH ×2 (09:40→21:42)
[2017-09-11] MEDS: Aspirin 81 mg Enteric Coated Tablet PO SCH (09:40)
[2017-09-11] MEDS: Nystatin Powder 15 GM BOT TOP SCH ×2 (09:41→21:43)
[2017-09-11] MEDS: Bupropion 150 MG SR TAB PO SCH (09:41)
[2017-09-11] MEDS: Famotidine 20 MG TAB PO SCH ×2 (09:41→21:42)
[2017-09-11] MEDS: Insulin Regular 300 UNITS/3 ML VIAL SC PRN (17:12)
[2017-09-11] MEDS: Allopurinol 300 MG TAB PO SCH (21:42)
[2017-09-11] MEDS: Lisinopril 5 MG TAB PO SCH (21:42)
--- NOTE | 2017-09-11 22:46 | PDOC.PN ---
- Subjective Encounter Start Date: 09/11/17 Encounter Start Time: 14:00 Patient seen and examined for CP. No new complaints. No overnight events - Objective Resuscitation Status: Resuscitation Status FULL:Full Resuscitation MAR Reviewed: Yes Vital Signs & Weight: Vital Signs (12 hours) Temp Pulse Resp BP BP Pulse Ox 09/11/17 21:42 94 119/67 09/11/17 19:41 99.1 F 94 20 119/67 93 L 09/11/17 17:02 98.3 F 102 H 18 131/95 H 100 09/11/17 11:35 98.5 F 86 16 125/86 94 L Weight Weight 355 lb 1.012 oz I&O: 09/10/17 09/11/17 09/12/17 06:59 06:59 06:59 Intake Total 1200 1999 2379 Balance 1200 1999 2379 Result Diagrams: 09/10/17 04:39 09/10/17 04:39 Additional Labs: Accuchecks 09/11/17 09/11/17 09/11/17 20:43 17:04 11:35 POC Glucose 129 H 190 H 175 H 09/11/17 06:10 POC Glucose 119 H Phys Exam - Physical Examination Constitutional: NAD Respiratory: no wheezing, no rhonchi Cardiovascular: RRR, no rub Gastrointestinal: soft, non-tender, positive bowel sounds Musculoskeletal: no edema Neurological: moves all 4 limbs Dx/Plan - Plan DVT proph w/SCDs FINAL DIAGNOSES: 1. Chest discomfort, acute coronary syndrome ruled out. Cleared by Cardiology 2. Recent negative stress test. 3. Hypertension. 4. Diabetes mellitus, type 2. on sliding scale 5. Morbid obesity with a BMI of 46.8. 6. Chronic kidney disease, stage 2. 7. Obstructive sleep apnea. 8. History of pulmonary embolism, on anticoagulation. 9. Chronic pain syndrome. 10. Benign prostatic hypertrophy. 11. Chronic bedridden status, due to back injury in the past. PLAN: Await placement Stable for dc since 09/06 Review of Systems - Review of Systems Respiratory: negative: Cough, Dry, Shortness of Breath, Hemoptysis, SOB with Excertion, Pleuritic Pain, Sputum, Wheezing Cardiovascular: negative: chest pain, palpitations, orthopnea, paroxysmal nocturnal dyspnea, edema, light headedness, other - Medications/Allergies Allergies/Adverse Reactions: Allergies Allergy/AdvReac Type Severity Reaction Status Date / Time No Known Allergies Allergy Verified 09/06/17 04:37 Medications: Current Medications Acetaminophen (Tylenol) 650 mg PO Q4H PRN PRN Reason: Headache/Fever or Pain Hydrocodone Bitart/Acetaminophen ([place] 5/325) 1 tab PO Q4H PRN PRN Reason: Mild Pain (1-3) Hydrocodone Bitart/Acetaminophen ([place] 10/325) 1 tab PO Q4H PRN PRN Reason: Moderate Pain (4-6) Last Admin: 09/11/17 21:45 Dose: 1 tab Al Hydroxide/Mg Hydroxide (Maalox) 30 ml PO Q6H PRN PRN Reason: Heartburn or Indigestion Allopurinol (Zyloprim) [address] [facility] Last Admin: 09/11/17 21:42 Dose: 300 mg Alprazolam (Xanax) 0.25 mg PO BIDPRN PRN PRN Reason: Anxiety Last Admin: 09/10/17 18:23 Dose: 0.25 mg Apixaban (Eliquis) 5 mg PO BID [facility] Last Admin: 09/11/17 21:42 Dose: 5 mg Aspirin (Ecotrin) 81 mg PO DAILY [facility] Last Admin: 09/11/17 09:40 Dose: 81 mg Bisacodyl (Dulcolax) 10 mg [place] Q24H PRN PRN Reason: Constipation Bupropion HCl (Wellbutrin Sr) 150 mg PO DAILY [facility] Last Admin: 09/11/17 09:41 Dose: 150 mg Calcium Carbonate (Tums) 1,000 mg PO Q4H PRN PRN Reason: Heartburn or Indigestion Dextrose/Water (Dextrose 50%) 25 gm SLOW IVP PRN PRN PRN Reason: Hypoglycemia Famotidine (Pepcid) 20 mg PO BID [facility] Last Admin: 09/11/17 21:42 Dose: 20 mg Glucagon (Glucagon) 1 mg IM PRN PRN PRN Reason: Hypoglycemia Dextrose/Water (D5w) 1,000 mls @ 0 mls/hr IV .Q0M PRN; As Directed PRN Reason: Hypoglycemia Insulin Human Regular (Humulin R) 0 units [place] .MILD SLIDING SCALE PRN PRN Reason: Mild Correctional Scale Last Admin: 09/11/17 17:12 Dose: 2 unit Insulin Human Regular (Humulin R) 0 units SC .BEDTIME SLIDING SC PRN PRN Reason: Bedtime Correctional Scale Lisinopril (Zestril) 10 mg PO QAM [facility] Last Admin: 09/11/17 09:40 Dose: 10 mg Lisinopril (Zestril) 5 mg PO HS [facility] Last Admin: 09/11/17 21:42 Dose: 5 mg Magnesium Hydroxide (Milk Of Magnesium) 30 ml PO DAILYPRN PRN PRN Reason: Constipation Mineral Oil/White Petrolatum (Eucerin Cream) 0 gm TOP BIDPRN PRN PRN Reason: Dry Skin Nitroglycerin (Nitrostat) 0.4 mg PO Q5MIN PRN PRN Reason: Chest Pain Nystatin (Mycostatin Powder) 0 gm TOP BID [facility] Last Admin: 09/11/17 21:43 Dose: 1 applic Ondansetron HCl (Zofran Odt) 4 mg PO Q6H PRN PRN Reason: Nausea/Vomiting Last Admin: 09/09/17 04:42 Dose: 4 mg Ondansetron HCl (Zofran) 4 mg IVP Q6H PRN PRN Reason: Nausea/Vomiting Polyethylene Glycol (Miralax) 17 gm PO DAILY PRN PRN Reason: Constipation Psyllium Hydrophilic Mucilloid (Metamucil) 1 pk PO DAILYPRN PRN PRN Reason: CONSTIPATION Last Admin: 09/08/17 20:36 Dose: 1 pk Senna/Docusate Sodium (Senokot S) 1 tab PO BID [facility] Last Admin: 09/11/17 21:43 Dose: Not Given Tamsulosin HCl (Flomax) 0.4 mg PO DAILY [facility] Last Admin: 09/11/17 09:40 Dose: 0.4 mg Tizanidine HCl (Zanaflex) 4 mg PO BID PRN PRN Reason: Muscle Spasm Last Admin: 09/11/17 21:45 Dose: 4 mg
[2017-09-12] MEDS: Tamsulosin HCl 0.4 MG CAP PO SCH (10:36)
[2017-09-12] MEDS: Aspirin 81 mg Enteric Coated Tablet PO SCH (10:36)
[2017-09-12] MEDS: Senokot S 8.6-50 MG TAB PO SCH ×2 (10:36→20:09)
[2017-09-12] MEDS: Famotidine 20 MG TAB PO SCH ×2 (10:36→20:05)
[2017-09-12] MEDS: Apixaban 5 MG TAB PO SCH ×2 (10:36→20:05)
[2017-09-12] MEDS: Bupropion 150 MG SR TAB PO SCH (10:36)
[2017-09-12] MEDS: Lisinopril 10 MG TAB PO SCH (10:37)
[2017-09-12] MEDS: Nystatin Powder 15 GM BOT TOP SCH ×2 (10:40→20:09)
[2017-09-12] MEDS: tiZANidine HCl 4 MG TAB PO PRN (20:05)
[2017-09-12] MEDS: Allopurinol 300 MG TAB PO SCH (20:05)
[2017-09-12] MEDS: HYDROcodone/Acetaminophen 10/325 mg Tablet PO PRN (20:05)
[2017-09-12] MEDS: Lisinopril 5 MG TAB PO SCH (20:08)
--- NOTE | 2017-09-12 21:37 | PDOC.PN ---
- Subjective Encounter Start Date: 09/12/17 Encounter Start Time: 13:00 Patient seen and examined for CP. No new complaints. Constipated - Objective Resuscitation Status: Resuscitation Status FULL:Full Resuscitation MAR Reviewed: Yes Vital Signs & Weight: Vital Signs (12 hours) Temp Pulse Resp BP BP Pulse Ox 09/12/17 20:08 97 154/89 H 09/12/17 20:00 99.8 F H 97 18 154/89 H 95 09/12/17 16:29 98.0 F 90 20 138/92 H 96 09/12/17 11:47 98.2 F 86 20 124/90 95 09/12/17 10:37 133/88 Weight Admit Weight 354 lb 9.6 oz Weight 355 lb 1 oz I&O: 09/11/17 09/12/17 09/13/17 06:59 06:59 06:59 Intake Total 1999 2380 Balance 1999 238 Result Diagrams: 09/10/17 04:39 09/10/17 04:39 Additional Labs: Accuchecks 09/12/17 09/12/17 09/12/17 16:36 11:52 05:28 POC Glucose 100 132 H 138 H Phys Exam - Physical Examination Constitutional: NAD Respiratory: no wheezing, no rhonchi Cardiovascular: RRR, no rub Gastrointestinal: soft, non-tender, positive bowel sounds Musculoskeletal: no edema Dx/Plan - Plan DVT proph w/SCDs FINAL DIAGNOSES: 1. Chest discomfort, acute coronary syndrome ruled out. Cleared by Cardiology 2. Recent negative stress test. 3. Hypertension. 4. Diabetes mellitus, type 2. on sliding scale 5. Morbid obesity with a BMI of 46.8. 6. Chronic kidney disease, stage 2. 7. Obstructive sleep apnea. 8. History of pulmonary embolism, on anticoagulation. 9. Chronic pain syndrome. 10. Benign prostatic hypertrophy. 11. Chronic bedridden status, due to back injury in the past. PLAN: Await placement Stable for dc since 09/06 Review of Systems - Review of Systems Respiratory: negative: Cough, Dry, Shortness of Breath, Hemoptysis, SOB with Excertion, Pleuritic Pain, Sputum, Wheezing Cardiovascular: negative: chest pain, palpitations, orthopnea, paroxysmal nocturnal dyspnea, edema, light headedness, other - Medications/Allergies Allergies/Adverse Reactions: Allergies Allergy/AdvReac Type Severity Reaction Status Date / Time No Known Allergies Allergy Verified 09/06/17 04:37 Medications: Current Medications Acetaminophen (Tylenol) 650 mg PO Q4H PRN PRN Reason: Headache/Fever or Pain Last Admin: 09/12/17 00:32 Dose: 650 mg Hydrocodone Bitart/Acetaminophen ([place] 5/325) 1 tab PO Q4H PRN PRN Reason: Mild Pain (1-3) Hydrocodone Bitart/Acetaminophen ([place] 10/325) 1 tab PO Q4H PRN PRN Reason: Moderate Pain (4-6) Last Admin: 09/12/17 20:05 Dose: 1 tab Al Hydroxide/Mg Hydroxide (Maalox) 30 ml PO Q6H PRN PRN Reason: Heartburn or Indigestion Allopurinol (Zyloprim) 300 mg PO [facility] Last Admin: 09/12/17 20:05 Dose: 300 mg Alprazolam (Xanax) 0.25 mg PO BIDPRN PRN PRN Reason: Anxiety Last Admin: 09/10/17 18:23 Dose: 0.25 mg Apixaban (Eliquis) 5 mg PO BID [facility] Last Admin: 09/12/17 20:05 Dose: 5 mg Aspirin (Ecotrin) 81 mg PO DAILY [facility] Last Admin: 09/12/17 10:36 Dose: 81 mg Bisacodyl (Dulcolax) 10 mg [place] Q24H PRN PRN Reason: Constipation Bupropion HCl (Wellbutrin Sr) 150 mg PO DAILY [facility] Last Admin: 09/12/17 10:36 Dose: 150 mg Calcium Carbonate (Tums) 1,000 mg PO Q4H PRN PRN Reason: Heartburn or Indigestion Dextrose/Water (Dextrose 50%) 25 gm SLOW IVP PRN PRN PRN Reason: Hypoglycemia Famotidine (Pepcid) 20 mg PO BID [facility] Last Admin: 09/12/17 20:05 Dose: 20 mg Glucagon (Glucagon) 1 mg IM PRN PRN PRN Reason: Hypoglycemia Dextrose/Water (D5w) 1,000 mls @ 0 mls/hr IV .Q0M PRN; As Directed PRN Reason: Hypoglycemia Insulin Human Regular (Humulin R) 0 units [place] .MILD SLIDING SCALE PRN PRN Reason: Mild Correctional Scale Last Admin: 09/11/17 17:12 Dose: 2 unit Insulin Human Regular (Humulin R) 0 units [place] .BEDTIME SLIDING SC PRN PRN Reason: Bedtime Correctional Scale Lisinopril (Zestril) 10 mg PO QAM [facility] Last Admin: 09/12/17 10:37 Dose: 10 mg Lisinopril (Zestril) 5 mg PO HS [facility] Last Admin: 09/12/17 20:08 Dose: 5 mg Magnesium Hydroxide (Milk Of Magnesium) 30 ml PO DAILYPRN PRN PRN Reason: Constipation Mineral Oil/White Petrolatum (Eucerin Cream) 0 gm TOP BIDPRN PRN PRN Reason: Dry Skin Nitroglycerin (Nitrostat) 0.4 mg PO Q5MIN PRN PRN Reason: Chest Pain Nystatin (Mycostatin Powder) 0 gm TOP BID [facility] Last Admin: 09/12/17 20:09 Dose: 1 applic Ondansetron HCl (Zofran Odt) 4 mg PO Q6H PRN PRN Reason: Nausea/Vomiting Last Admin: 09/09/17 04:42 Dose: 4 mg Ondansetron HCl (Zofran) 4 mg IVP Q6H PRN PRN Reason: Nausea/Vomiting Polyethylene Glycol (Miralax) 17 gm PO DAILY [facility] Psyllium Hydrophilic Mucilloid (Metamucil) 1 pk PO DAILYPRN PRN PRN Reason: CONSTIPATION Last Admin: 09/08/17 20:36 Dose: 1 pk Senna/Docusate Sodium (Senokot S) 1 tab PO BID [facility] Last Admin: 09/12/17 20:09 Dose: Not Given Tamsulosin HCl (Flomax) 0.4 mg PO DAILY [facility] Last Admin: 09/12/17 10:36 Dose: 0.4 mg Tizanidine HCl (Zanaflex) 4 mg PO BID PRN PRN Reason: Muscle Spasm Last Admin: 09/12/17 20:05 Dose: 4 mg
[2017-09-13] MEDS: HYDROcodone/Acetaminophen 10/325 mg Tablet PO PRN ×4 (03:20→20:03)
[2017-09-13] MEDS: Lisinopril 10 MG TAB PO SCH (08:25)
[2017-09-13] MEDS: Aspirin 81 mg Enteric Coated Tablet PO SCH (08:25)
[2017-09-13] MEDS: Bupropion 150 MG SR TAB PO SCH (08:25)
[2017-09-13] MEDS: Famotidine 20 MG TAB PO SCH ×2 (08:26→20:03)
[2017-09-13] MEDS: Polyethylene Glycol 3350 17 GM Packet PO SCH (08:26)
[2017-09-13] MEDS: Senokot S 8.6-50 MG TAB PO SCH ×2 (08:26→20:05)
[2017-09-13] MEDS: Apixaban 5 MG TAB PO SCH ×2 (08:26→20:02)
[2017-09-13] MEDS: Tamsulosin HCl 0.4 MG CAP PO SCH (08:26)
[2017-09-13] MEDS: Nystatin Powder 15 GM BOT TOP SCH ×2 (08:27→20:04)
[2017-09-13] MEDS: tiZANidine HCl 4 MG TAB PO PRN ×2 (08:31→23:42)
--- NOTE | 2017-09-13 15:31 | PDOC.PN ---
- Subjective Encounter Start Date: 09/13/17 Encounter Start Time: 14:00 Patient is seen today, alert , he is very weak. Pt is waiting on placmeent to Rehab. he is Bedbound chronically. - Objective Resuscitation Status: Resuscitation Status FULL:Full Resuscitation MAR Reviewed: Yes Vital Signs & Weight: Vital Signs (12 hours) Temp Pulse Resp BP BP Pulse Ox 09/13/17 08:25 149/98 H 09/13/17 08:00 98.3 F 96 20 09/13/17 07:35 98.3 F 96 20 149/98 H 95 09/13/17 04:58 97.8 F 921 H 16 153/100 H 98 Weight Admit Weight 354 lb 9.6 oz Weight 355 lb 1 oz I&O: 09/12/17 09/13/17 09/14/17 06:59 06:59 06:59 Intake Total 2380 Balance 2380 Result Diagrams: 09/10/17 04:39 09/10/17 04:39 Additional Labs: Accuchecks 09/13/17 09/13/17 09/12/17 11:27 04:56 21:21 POC Glucose 126 H 126 H 177 H 09/12/17 16:36 POC Glucose 100 Phys Exam - Physical Examination HEENT: PERRLA, moist MMs Neck: no nodes, no JVD Respiratory: no rales, clear to auscultation bilateral Cardiovascular: RRR, no significant murmur Gastrointestinal: soft, non-tender Dx/Plan (1) CKD (chronic kidney disease) stage 2, GFR 60-89 ml/min Code(s): N18.2 - CHRONIC KIDNEY DISEASE, STAGE 2 (MILD) Status: Acute Comment: Patient is on oral fluids, Well hydrated. (2) HTN (hypertension) Code(s): I10 - ESSENTIAL (PRIMARY) HYPERTENSION Status: Acute Comment: Well controlled and at Goal. continue home meds (3) DM type 2 (diabetes mellitus, type 2) Status: Acute Comment: Continue home MEds, SSI,. Stbale BG. (4) Chronic high back pain Code(s): M54.9 - DORSALGIA, UNSPECIFIED; G89.29 - OTHER CHRONIC PAIN Status: Acute (5) Muscle spasms of both lower extremities Code(s): M62.838 - OTHER MUSCLE SPASM Status: Acute Comment: Will do Baclofen 5mg po TID, pt on PRN Zanaflex. (6) Pulmonary embolism Code(s): I26.99 - OTHER PULMONARY EMBOLISM WITHOUT ACUTE COR PULMONALE Status : Acute Comment: Pt on Eleiquis 5mg po BID. (7) Chest pain Code(s): R07.9 - CHEST PAIN, UNSPECIFIED Status: Acute Comment: [facility], had neg nuclear Stres test. Stbnale to dischagre, looking for plameent to Rehab/ SNF. insurance auth - Plan cont current plan of care, PT/OT, social media strategist, incentive spirometry, DVT proph w/SCDs * . Review of Systems - Review of Systems Constitutional: weakness, malaise Eyes: negative: Pain, Vision Change, Conjunctivae Inflammation, Eyelid Inflammation, Redness, Other ENT: negative: Ear Pain, Ear Discharge, Nose Pain, Nose Discharge, Nose Congestion, Mouth Pain, Mouth Swelling, Throat Pain, Throat Swelling, Other Respiratory: negative: Cough, Dry, Shortness of Breath, Hemoptysis, SOB with Excertion, Pleuritic Pain, Sputum, Wheezing Cardiovascular: negative: chest pain, palpitations, orthopnea, paroxysmal nocturnal dyspnea, edema, light headedness, other Gastrointestinal: Constipation Musculoskeletal: Leg Pain. negative: Neck Pain, Shoulder Pain, Arm Pain, Back Pain, Hand Pain, Foot Pain, Other Neurological: Weakness - Medications/Allergies Allergies/Adverse Reactions: Allergies Allergy/AdvReac Type Severity Reaction Status Date / Time No Known Allergies Allergy Verified 09/06/17 04:37 Medications: Current Medications Acetaminophen (Tylenol) 650 mg PO Q4H PRN PRN Reason: Headache/Fever or Pain Last Admin: 09/12/17 00:32 Dose: 650 mg Hydrocodone Bitart/Acetaminophen ([place] 5/325) 1 tab PO Q4H PRN PRN Reason: Mild Pain (1-3) Hydrocodone Bitart/Acetaminophen ([place] 10/325) 1 tab PO Q4H PRN PRN Reason: Moderate Pain (4-6) Last Admin: 09/13/17 15:11 Dose: 1 tab Al Hydroxide/Mg Hydroxide (Maalox) 30 ml PO Q6H PRN PRN Reason: Heartburn or Indigestion Allopurinol (Zyloprim) 300 mg PO HS [facility] Last Admin: 07/24/18 20:05 Dose: 300 mg Alprazolam (Xanax) 0.25 mg PO BIDPRN PRN PRN Reason: Anxiety Last Admin: 09/10/17 18:23 Dose: 0.25 mg Apixaban (Eliquis) 5 mg PO BID [facility] Last Admin: 09/13/17 08:26 Dose: 5 mg Aspirin (Ecotrin) 81 mg PO DAILY [facility] Last Admin: 09/13/17 08:25 Dose: 81 mg Bisacodyl (Dulcolax) 10 mg [place] Q24H PRN PRN Reason: Constipation Bupropion HCl (Wellbutrin Sr) 150 mg PO DAILY [facility] Last Admin: 09/13/17 08:25 Dose: 150 mg Calcium Carbonate (Tums) 1,000 mg PO Q4H PRN PRN Reason: Heartburn or Indigestion Dextrose/Water (Dextrose 50%) 25 gm SLOW IVP PRN PRN PRN Reason: Hypoglycemia Famotidine (Pepcid) 20 mg PO BID [facility] Last Admin: 09/13/17 08:26 Dose: 20 mg Glucagon (Glucagon) 1 mg IM PRN PRN PRN Reason: Hypoglycemia Dextrose/Water (D5w) 1,000 mls @ 0 mls/hr IV .Q0M PRN; As Directed PRN Reason: Hypoglycemia Insulin Human Regular (Humulin R) 0 units [place] .MILD SLIDING SCALE PRN PRN Reason: Mild Correctional Scale Last Admin: 09/11/17 17:12 Dose: 2 unit Insulin Human Regular (Humulin R) 0 units [place] .BEDTIME SLIDING SC PRN PRN Reason: Bedtime Correctional Scale Lisinopril (Zestril) 10 mg PO QAM [facility] Last Admin: 09/13/17 08:25 Dose: 10 mg Lisinopril (Zestril) 5 mg PO HS [facility] Last Admin: 09/12/17 20:08 Dose: 5 mg Magnesium Hydroxide (Milk Of Magnesium) 30 ml PO DAILYPRN PRN PRN Reason: Constipation Mineral Oil/White Petrolatum (Eucerin Cream) 0 gm TOP BIDPRN PRN PRN Reason: Dry Skin Nitroglycerin (Nitrostat) 0.4 mg PO Q5MIN PRN PRN Reason: Chest Pain Nystatin (Mycostatin Powder) 0 gm TOP BID [facility] Last Admin: 09/13/17 08:27 Dose: 1 applic Ondansetron HCl (Zofran Odt) 4 mg PO Q6H PRN PRN Reason: Nausea/Vomiting Last Admin: 09/09/17 04:42 Dose: 4 mg Ondansetron HCl (Zofran) 4 mg IVP Q6H PRN PRN Reason: Nausea/Vomiting Polyethylene Glycol (Miralax) 17 gm PO DAILY [facility] Last Admin: 09/13/17 08:26 Dose: 17 gm Psyllium Hydrophilic Mucilloid (Metamucil) 1 pk PO DAILYPRN PRN PRN Reason: CONSTIPATION Last Admin: 09/08/17 20:36 Dose: 1 pk Senna/Docusate Sodium (Senokot S) 1 tab PO BID [facility] Last Admin: 09/13/17 08:26 Dose: 1 tab Tamsulosin HCl (Flomax) 0.4 mg PO DAILY [facility] Last Admin: 09/13/17 08:26 Dose: 0.4 mg Tizanidine HCl (Zanaflex) 4 mg PO BID PRN PRN Reason: Muscle Spasm Last Admin: 09/13/17 08:31 Dose: 4 mg
[2017-09-13] MEDS ORDERED: Baclofen 10 MG TAB PO SCH (16:15)
[2017-09-13] MEDS: Lisinopril 5 MG TAB PO SCH (20:02)
[2017-09-13] MEDS: Allopurinol 300 MG TAB PO SCH (20:02)
[2017-09-13] MEDS: Baclofen 10 MG TAB PO SCH (20:02)
[2017-09-13] MEDS: ALPRAZolam 0.25 MG TAB PO PRN (23:42)
[2017-09-14] MEDS: HYDROcodone/Acetaminophen 10/325 mg Tablet PO PRN ×3 (05:09→20:39)
[2017-09-14] MEDS: Bupropion 150 MG SR TAB PO SCH (08:26)
[2017-09-14] MEDS: Baclofen 10 MG TAB PO SCH ×3 (08:26→20:38)
[2017-09-14] MEDS: Apixaban 5 MG TAB PO SCH ×2 (08:26→20:38)
[2017-09-14] MEDS: Lisinopril 10 MG TAB PO SCH (08:27)
[2017-09-14] MEDS: Famotidine 20 MG TAB PO SCH ×2 (08:27→20:39)
[2017-09-14] MEDS: Aspirin 81 mg Enteric Coated Tablet PO SCH (08:27)
[2017-09-14] MEDS: Senokot S 8.6-50 MG TAB PO SCH ×2 (08:28→20:39)
[2017-09-14] MEDS: ALPRAZolam 0.25 MG TAB PO PRN (08:28)
[2017-09-14] MEDS: Polyethylene Glycol 3350 17 GM Packet PO SCH (08:28)
[2017-09-14] MEDS: Tamsulosin HCl 0.4 MG CAP PO SCH (08:29)
[2017-09-14] MEDS: tiZANidine HCl 4 MG TAB PO PRN (12:16)
[2017-09-14] MEDS: Nystatin Powder 15 GM BOT TOP SCH ×2 (14:44→20:39)
--- NOTE | 2017-09-14 14:54 | PDOC.PN ---
- Subjective Encounter Start Date: 09/14/17 Encounter Start Time: 12:00 Patient is seen today, alert and oriented. No other concerns noted. Pt is waiitng on Rehab placment, pt cannot walk nor move his legs, has spinal injury with paraparesis, was told by neurology, pt have high chance of improvement with rigorous PT - Objective Resuscitation Status: Resuscitation Status FULL:Full Resuscitation MAR Reviewed: Yes Vital Signs & Weight: Vital Signs (12 hours) Temp Pulse Resp BP BP Pulse Ox 09/14/17 08:27 123/87 09/14/17 08:00 98.5 F 94 20 09/14/17 07:30 98.5 F 94 20 123/87 94 L Weight Admit Weight 354 lb 9.6 oz Weight 355 lb 1 oz I&O: 09/13/17 09/14/17 09/15/17 06:59 06:59 06:59 Intake Total 2620 Balance 2620 Result Diagrams: 09/10/17 04:39 09/10/17 04:39 Additional Labs: Accuchecks 09/14/17 09/14/17 09/13/17 12:15 04:32 20:05 POC Glucose 112 H 144 H 140 H 09/13/17 16:13 POC Glucose 129 H Radiology Reviewed by me: Yes Phys Exam - Physical Examination HEENT: PERRLA, moist MMs Neck: no nodes, no JVD Respiratory: no wheezing, no rales Cardiovascular: RRR, no significant murmur Gastrointestinal: soft, non-tender Musculoskeletal: no edema, pulses present Neurological: non-focal, normal sensation Lymphatic: no nodes Psychiatric: normal affect, A&O x 3 Skin: no rash, normal turgor Dx/Plan (1) CKD (chronic kidney disease) stage 2, GFR 60-89 ml/min Code(s): N18.2 - CHRONIC KIDNEY DISEASE, STAGE 2 (MILD) Status: Acute Comment: Patient is on oral fluids, Well hydrated. (2) HTN (hypertension) Code(s): I10 - ESSENTIAL (PRIMARY) HYPERTENSION Status: Acute Comment: Well controlled and at Goal. continue home meds (3) DM type 2 (diabetes mellitus, type 2) Status: Acute Comment: Continue home MEds, SSI,. [facility]bale BG. (4) Chronic high back pain Code(s): M54.9 - DORSALGIA, UNSPECIFIED; G89.29 - OTHER CHRONIC PAIN Status: Acute Comment: Pt has multiple back suregries, with now Poor mobility of lower extrmities, waiitng for Rehab placmenet for PT. (5) Muscle spasms of both lower extremities Code(s): M62.838 - OTHER MUSCLE SPASM Status: Acute Comment: Will do Baclofen 5mg po TID, pt on PRN Zanaflex. (6) Pulmonary embolism Code(s): I26.99 - OTHER PULMONARY EMBOLISM WITHOUT ACUTE COR PULMONALE Status : Acute Comment: Pt on Eleiquis 5mg po BID. (7) Chest pain Code(s): R07.9 - CHEST PAIN, UNSPECIFIED Status: Acute Comment: Stbale, had neg nuclear Stres test. Stbnale to dischagre, looking for plameent to Rehab/ SNF. insurance auth - Plan cont current plan of care, padgett catheter, PT/OT, incentive spirometry * . Review of Systems - Review of Systems Constitutional: weakness, malaise. negative: fever, chills, sweats, other Eyes: negative: Pain, Vision Change, Conjunctivae Inflammation, Eyelid Inflammation, Redness, Other ENT: negative: Ear Pain, Ear Discharge, Nose Pain, Nose Discharge, Nose Congestion, Mouth Pain, Mouth Swelling, Throat Pain, Throat Swelling, Other Respiratory: negative: Cough, Dry, Shortness of Breath, Hemoptysis, SOB with Excertion, Pleuritic Pain, Sputum, Wheezing Cardiovascular: negative: chest pain, palpitations, orthopnea, paroxysmal nocturnal dyspnea, edema, light headedness, other Musculoskeletal: Back Pain Neurological: Weakness (lower extrmitis), Numbness - Medications/Allergies Allergies/Adverse Reactions: Allergies Allergy/AdvReac Type Severity Reaction Status Date / Time No Known Allergies Allergy Verified 09/06/17 04:37 Medications: Current Medications Acetaminophen (Tylenol) 650 mg PO Q4H PRN PRN Reason: Headache/Fever or Pain Last Admin: 09/12/17 00:32 Dose: 650 mg Hydrocodone Bitart/Acetaminophen ([place] 5/325) 1 tab PO Q4H PRN PRN Reason: Mild Pain (1-3) Hydrocodone Bitart/Acetaminophen ([place] 10/325) 1 tab PO Q4H PRN PRN Reason: Moderate Pain (4-6) Last Admin: 09/14/17 12:15 Dose: 1 tab Al Hydroxide/Mg Hydroxide (Maalox) 30 ml PO Q6H PRN PRN Reason: Heartburn or Indigestion Allopurinol (Zyloprim) 300 mg PO HS [facility] Last Admin: 09/13/17 20:02 Dose: 300 mg Alprazolam (Xanax) 0.25 mg PO BIDPRN PRN PRN Reason: Anxiety Last Admin: 09/14/17 08:28 Dose: 0.25 mg Apixaban (Eliquis) 5 mg PO BID [facility] Last Admin: 09/14/17 08:26 Dose: 5 mg Aspirin (Ecotrin) 81 mg PO DAILY [facility] Last Admin: 09/14/17 08:27 Dose: 81 mg Baclofen (Lioresal) 5 mg PO TID [facility] Last Admin: 09/14/17 14:44 Dose: 5 mg Bisacodyl (Dulcolax) 10 mg [place] Q24H PRN PRN Reason: Constipation Bupropion HCl (Wellbutrin Sr) 150 mg PO DAILY [facility] Last Admin: 09/14/17 08:26 Dose: 150 mg Calcium Carbonate (Tums) 1,000 mg PO Q4H PRN PRN Reason: Heartburn or Indigestion Dextrose/Water (Dextrose 50%) 25 gm SLOW IVP PRN PRN PRN Reason: Hypoglycemia Famotidine (Pepcid) 20 mg PO BID [facility] Last Admin: 09/14/17 08:27 Dose: 20 mg Glucagon (Glucagon) 1 mg IM PRN PRN PRN Reason: Hypoglycemia Dextrose/Water (D5w) 1,000 mls @ 0 mls/hr IV .Q0M PRN; As Directed PRN Reason: Hypoglycemia Insulin Human Regular (Humulin R) 0 units SC .MILD SLIDING SCALE PRN PRN Reason: Mild Correctional Scale Last Admin: 09/11/17 17:12 Dose: 2 unit Insulin Human Regular (Humulin R) 0 units SC .BEDTIME SLIDING SC PRN PRN Reason: Bedtime Correctional Scale Lisinopril (Zestril) 10 mg PO QAM [facility] Last Admin: 09/14/17 08:27 Dose: 10 mg Lisinopril (Zestril) 5 mg PO HS [facility] Last Admin: 09/13/17 20:02 Dose: 5 mg Magnesium Hydroxide (Milk Of Magnesium) 30 ml PO DAILYPRN PRN PRN Reason: Constipation Mineral Oil/White Petrolatum (Eucerin Cream) 0 gm TOP BIDPRN PRN PRN Reason: Dry Skin Nitroglycerin (Nitrostat) 0.4 mg PO Q5MIN PRN PRN Reason: Chest Pain Nystatin (Mycostatin Powder) 0 gm TOP BID [facility] Last Admin: 09/14/17 14:44 Dose: 1 applic Ondansetron HCl (Zofran Odt) 4 mg PO Q6H PRN PRN Reason: Nausea/Vomiting Last Admin: 09/09/17 04:42 Dose: 4 mg Ondansetron HCl (Zofran) 4 mg IVP Q6H PRN PRN Reason: Nausea/Vomiting Polyethylene Glycol (Miralax) 17 gm PO DAILY [facility] Last Admin: 09/14/17 08:28 Dose: 17 gm Psyllium Hydrophilic Mucilloid (Metamucil) 1 pk PO DAILYPRN PRN PRN Reason: CONSTIPATION Last Admin: 09/08/17 20:36 Dose: 1 pk Senna/Docusate Sodium (Senokot S) 1 tab PO BID [facility] Last Admin: 09/14/17 08:28 Dose: 1 tab Tamsulosin HCl (Flomax) 0.4 mg PO DAILY [facility] Last Admin: 09/14/17 08:29 Dose: 0.4 mg Tizanidine HCl (Zanaflex) 4 mg PO BID PRN PRN Reason: Muscle Spasm Last Admin: 09/14/17 12:16 Dose: 4 mg
[2017-09-14] MEDS: Lisinopril 5 MG TAB PO SCH (20:38)
[2017-09-14] MEDS: Allopurinol 300 MG TAB PO SCH (20:39)
[2017-09-15] MEDS: tiZANidine HCl 4 MG TAB PO PRN ×2 (00:14→15:15)
[2017-09-15] MEDS: ALPRAZolam 0.25 MG TAB PO PRN (00:14)
[2017-09-15] MEDS: HYDROcodone/Acetaminophen 10/325 mg Tablet PO PRN ×3 (06:41→20:11)
[2017-09-15] MEDS: Polyethylene Glycol 3350 17 GM Packet PO SCH (08:46)
[2017-09-15] MEDS: Baclofen 10 MG TAB PO SCH ×3 (08:46→20:05)
[2017-09-15] MEDS: Lisinopril 10 MG TAB PO SCH (08:47)
[2017-09-15] MEDS: Apixaban 5 MG TAB PO SCH ×2 (08:47→20:05)
[2017-09-15] MEDS: Aspirin 81 mg Enteric Coated Tablet PO SCH (08:47)
[2017-09-15] MEDS: Bupropion 150 MG SR TAB PO SCH (08:47)
[2017-09-15] MEDS: Famotidine 20 MG TAB PO SCH ×2 (08:47→20:06)
[2017-09-15] MEDS: Tamsulosin HCl 0.4 MG CAP PO SCH (08:47)
[2017-09-15] MEDS: Nystatin Powder 15 GM BOT TOP SCH ×2 (08:48→20:10)
[2017-09-15] MEDS: Senokot S 8.6-50 MG TAB PO SCH ×2 (09:20→20:11)
--- NOTE | 2017-09-15 14:44 | PDOC.PN ---
- Subjective Encounter Start Date: 09/15/17 Encounter Start Time: 13:00 Patient is seen today, alert and oriented, No other concern noted. Pt waiting for Approval for Rehab. Medically patient is cleared for discharge.. - Objective Resuscitation Status: Resuscitation Status FULL:Full Resuscitation MAR Reviewed: Yes Vital Signs & Weight: Vital Signs (12 hours) Temp Pulse Resp BP BP Pulse Ox 09/15/17 08:47 127/91 H 09/15/17 08:00 99.1 F 93 18 127/91 H 92 L 09/15/17 07:30 99.1 F 93 18 127/91 H 92 L Weight Admit Weight 354 lb 9.6 oz Weight 355 lb 1.6 oz I&O: 09/14/17 09/15/17 09/16/17 06:59 06:59 06:59 Intake Total 2620 3200 Balance 2620 3200 Result Diagrams: 09/10/17 04:39 09/10/17 04:39 Additional Labs: Accuchecks 09/15/17 09/15/17 09/14/17 11:37 04:04 20:45 POC Glucose 100 117 H 118 H 09/14/17 09/14/17 19:45 16:51 POC Glucose 324 H 114 H Phys Exam - Physical Examination HEENT: PERRLA, moist MMs Neck: no nodes, no JVD Respiratory: no wheezing, no rales Cardiovascular: RRR, no significant murmur Gastrointestinal: soft, non-tender, no distention Musculoskeletal: edema present Reuced Range of motion both exemities Lower. Dx/Plan (1) CKD (chronic kidney disease) stage 2, GFR 60-89 ml/min Code(s): N18.2 - CHRONIC KIDNEY DISEASE, STAGE 2 (MILD) Status: Acute Comment: Patient is on oral fluids, Well hydrated. (2) HTN (hypertension) Code(s): I10 - ESSENTIAL (PRIMARY) HYPERTENSION Status: Acute Comment: Well controlled and at Goal. continue home meds (3) DM type 2 (diabetes mellitus, type 2) Status: Acute Comment: Continue home MEds, SSI,. [facility]bale BG. (4) Chronic high back pain Code(s): M54.9 - DORSALGIA, UNSPECIFIED; G89.29 - OTHER CHRONIC PAIN Status: Acute Comment: Pt has multiple back suregries, with now Poor mobility of lower extrmities, waiitng for Rehab placmenet for PT. (5) Muscle spasms of both lower extremities Code(s): M62.838 - OTHER MUSCLE SPASM Status: Acute Comment: Will increase Baclofen 7.5mg po TID, pt on PRN Zanaflex. No improveemnt according to patient (6) Pulmonary embolism Code(s): I26.99 - OTHER PULMONARY EMBOLISM WITHOUT ACUTE COR PULMONALE Status : Acute Comment: Pt on Eleiquis 5mg po BID. (7) Chest pain Code(s): R07.9 - CHEST PAIN, UNSPECIFIED Status: Acute Comment: [facility], had neg nuclear Stres test. Stbnale to dischagre, looking for plameent to Rehab/ SNF. insurance auth failed. Will follow recommedations. - Plan cont current plan of care, PT/OT, geriatric social worker, incentive spirometry, out of bed/ambulate, DVT proph w/lovenox * . Review of Systems - Review of Systems Constitutional: weakness, malaise Eyes: negative: Pain, Vision Change, Conjunctivae Inflammation, Eyelid Inflammation, Redness, Other ENT: negative: Ear Pain, Ear Discharge, Nose Pain, Nose Discharge, Nose Congestion, Mouth Pain, Mouth Swelling, Throat Pain, Throat Swelling, Other Respiratory: negative: Cough, Dry, Shortness of Breath, Hemoptysis, SOB with Excertion, Pleuritic Pain, Sputum, Wheezing Cardiovascular: negative: chest pain, palpitations, orthopnea, paroxysmal nocturnal dyspnea, edema, light headedness, other Gastrointestinal: negative: Nausea, Vomiting, Abdominal Pain, Diarrhea, Constipation, Melena, Hematochezia, Other Musculoskeletal: Leg Pain Skin: negative: Rash, Lesions, Torin, Bruising, Other Neurological: Weakness. negative: Incoordination, Change in Speech, Confusion, Seizures, Other - Medications/Allergies Allergies/Adverse Reactions: Allergies Allergy/AdvReac Type Severity Reaction Status Date / Time No Known Allergies Allergy Verified 09/06/17 04:37 Medications: Current Medications Acetaminophen (Tylenol) 650 mg PO Q4H PRN PRN Reason: Headache/Fever or Pain Last Admin: 09/12/17 00:32 Dose: 650 mg Hydrocodone Bitart/Acetaminophen ([place] 5/325) 1 tab PO Q4H PRN PRN Reason: Mild Pain (1-3) Hydrocodone Bitart/Acetaminophen ([place] 10/325) 1 tab PO Q4H PRN PRN Reason: Moderate Pain (4-6) Last Admin: 09/15/17 06:41 Dose: 1 tab Al Hydroxide/Mg Hydroxide (Maalox) 30 ml PO Q6H PRN PRN Reason: Heartburn or Indigestion Allopurinol (Zyloprim) 300 mg PO HS [facility] Last Admin: 09/14/17 20:39 Dose: 300 mg Alprazolam (Xanax) 0.25 mg PO BIDPRN PRN PRN Reason: Anxiety Last Admin: 09/15/17 00:14 Dose: 0.25 mg Apixaban (Eliquis) 5 mg PO BID [facility] Last Admin: 09/15/17 08:47 Dose: 5 mg Aspirin (Ecotrin) 81 mg PO DAILY [facility] Last Admin: 09/15/17 08:47 Dose: 81 mg Baclofen (Lioresal) 5 mg PO TID [facility] Last Admin: 09/15/17 08:46 Dose: 5 mg Bisacodyl (Dulcolax) 10 mg [place] Q24H PRN PRN Reason: Constipation Bupropion HCl (Wellbutrin Sr) 150 mg PO DAILY [facility] Last Admin: 09/15/17 08:47 Dose: 150 mg Calcium Carbonate (Tums) 1,000 mg PO Q4H PRN PRN Reason: Heartburn or Indigestion Dextrose/Water (Dextrose 50%) 25 gm SLOW IVP PRN PRN PRN Reason: Hypoglycemia Famotidine (Pepcid) 20 mg PO BID [facility] Last Admin: 09/15/17 08:47 Dose: 20 mg Glucagon (Glucagon) 1 mg IM PRN PRN PRN Reason: Hypoglycemia Dextrose/Water (D5w) 1,000 mls @ 0 mls/hr IV .Q0M PRN; As Directed PRN Reason: Hypoglycemia Insulin Human Regular (Humulin R) 0 units SC .MILD SLIDING SCALE PRN PRN Reason: Mild Correctional Scale Last Admin: 09/11/17 17:12 Dose: 2 unit Insulin Human Regular (Humulin R) 0 units SC .BEDTIME SLIDING SC PRN PRN Reason: Bedtime Correctional Scale Lisinopril (Zestril) 10 mg PO QAM [facility] Last Admin: 09/15/17 08:47 Dose: 10 mg Lisinopril (Zestril) 5 mg PO HS [facility] Last Admin: 09/14/17 20:38 Dose: 5 mg Magnesium Hydroxide (Milk Of Magnesium) 30 ml PO DAILYPRN PRN PRN Reason: Constipation Mineral Oil/White Petrolatum (Eucerin Cream) 0 gm TOP BIDPRN PRN PRN Reason: Dry Skin Nitroglycerin (Nitrostat) 0.4 mg PO Q5MIN PRN PRN Reason: Chest Pain Nystatin (Mycostatin Powder) 0 gm TOP BID [facility] Last Admin: 09/15/17 08:48 Dose: 1 applic Ondansetron HCl (Zofran Odt) 4 mg PO Q6H PRN PRN Reason: Nausea/Vomiting Last Admin: 09/09/17 04:42 Dose: 4 mg Ondansetron HCl (Zofran) 4 mg IVP Q6H PRN PRN Reason: Nausea/Vomiting Polyethylene Glycol (Miralax) 17 gm PO DAILY [facility] Last Admin: 09/15/17 08:46 Dose: 17 gm Psyllium Hydrophilic Mucilloid (Metamucil) 1 pk PO DAILYPRN PRN PRN Reason: CONSTIPATION Last Admin: 09/08/17 20:36 Dose: 1 pk Senna/Docusate Sodium (Senokot S) 1 tab PO BID [facility] Last Admin: 09/15/17 09:20 Dose: Not Given Tamsulosin HCl (Flomax) 0.4 mg PO DAILY [facility] Last Admin: 09/15/17 08:47 Dose: 0.4 mg Tizanidine HCl (Zanaflex) 4 mg PO BID PRN PRN Reason: Muscle Spasm Last Admin: 09/15/17 00:14 Dose: 4 mg
[2017-09-15] MEDS: Allopurinol 300 MG TAB PO SCH (20:05)
[2017-09-15] MEDS: Lisinopril 5 MG TAB PO SCH (20:06)
[2017-09-16] MEDS: tiZANidine HCl 4 MG TAB PO PRN ×2 (00:57→21:10)
[2017-09-16] MEDS: HYDROcodone/Acetaminophen 10/325 mg Tablet PO PRN ×4 (00:58→21:10)
[2017-09-16] MEDS: Aspirin 81 mg Enteric Coated Tablet PO SCH (08:14)
[2017-09-16] MEDS: Famotidine 20 MG TAB PO SCH ×2 (08:14→21:09)
[2017-09-16] MEDS: Baclofen 10 MG TAB PO SCH ×3 (08:15→21:08)
[2017-09-16] MEDS: Tamsulosin HCl 0.4 MG CAP PO SCH (08:15)
[2017-09-16] MEDS: Bupropion 150 MG SR TAB PO SCH (08:15)
[2017-09-16] MEDS: Lisinopril 10 MG TAB PO SCH (08:15)
[2017-09-16] MEDS: Apixaban 5 MG TAB PO SCH ×2 (08:15→21:08)
[2017-09-16] MEDS: Polyethylene Glycol 3350 17 GM Packet PO SCH (08:16)
[2017-09-16] MEDS: Nystatin Powder 15 GM BOT TOP SCH ×2 (08:16→21:09)
[2017-09-16] MEDS: Senokot S 8.6-50 MG TAB PO SCH ×2 (08:16→21:10)
[2017-09-16 15:20] VITALS: BMI 48.1
--- NOTE | 2017-09-16 20:08 | PDOC.PN ---
- Subjective Encounter Start Date: 09/16/17 Encounter Start Time: 14:30 Patient seen and examined for CP. No new complaints. No overnight events - Objective Resuscitation Status: Resuscitation Status FULL:Full Resuscitation MAR Reviewed: Yes Vital Signs & Weight: Vital Signs (12 hours) Temp Pulse Resp BP BP Pulse Ox 09/16/17 19:30 99.4 F 101 H 18 108/79 94 L 09/16/17 16:48 99.2 F 92 20 120/82 94 L 09/16/17 11:13 98.7 F 80 18 121/87 95 09/16/17 08:15 130/84 Weight Admit Weight 354 lb 9.6 oz Weight 355 lb 1.6 oz I&O: 09/15/17 09/16/17 09/17/17 06:59 06:59 06:59 Intake Total 3200 1900 1979 Balance 3200 1900 1979 Result Diagrams: 09/10/17 04:39 09/10/17 04:39 Additional Labs: Accuchecks 09/16/17 09/16/17 09/16/17 16:54 11:17 04:53 POC Glucose 106 122 H 125 H 09/15/17 19:53 POC Glucose 128 H Phys Exam - Physical Examination Constitutional: NAD Respiratory: no wheezing, no rhonchi Cardiovascular: RRR, no rub Gastrointestinal: soft, non-tender, positive bowel sounds Dx/Plan - Plan DVT proph w/SCDs FINAL DIAGNOSES: 1. Chest discomfort, acute coronary syndrome ruled out. Cleared by Cardiology 2. Recent negative stress test. 3. Hypertension. 4. Diabetes mellitus, type 2. on sliding scale 5. Morbid obesity with a BMI of 46.8. 6. Chronic kidney disease, stage 2. 7. Obstructive sleep apnea. 8. History of pulmonary embolism, on anticoagulation. 9. Chronic pain syndrome. 10. Benign prostatic hypertrophy. 11. Chronic bedridden status, due to back injury in the past. PLAN: Await placement Stable for dc since 09/06 Review of Systems - Review of Systems Respiratory: negative: Cough, Dry, Shortness of Breath, Hemoptysis, SOB with Excertion, Pleuritic Pain, Sputum, Wheezing Cardiovascular: negative: chest pain, palpitations, orthopnea, paroxysmal nocturnal dyspnea, edema, light headedness, other - Medications/Allergies Allergies/Adverse Reactions: Allergies Allergy/AdvReac Type Severity Reaction Status Date / Time No Known Allergies Allergy Verified 09/06/17 04:37 Medications: Current Medications Acetaminophen (Tylenol) 650 mg PO Q4H PRN PRN Reason: Headache/Fever or Pain Last Admin: 09/12/17 00:32 Dose: 650 mg Hydrocodone Bitart/Acetaminophen ([place] 5/325) 1 tab PO Q4H PRN PRN Reason: Mild Pain (1-3) Hydrocodone Bitart/Acetaminophen ([place] 10/325) 1 tab PO Q4H PRN PRN Reason: Moderate Pain (4-6) Last Admin: 09/16/17 16:32 Dose: 1 tab Al Hydroxide/Mg Hydroxide (Maalox) 30 ml PO Q6H PRN PRN Reason: Heartburn or Indigestion Allopurinol (Zyloprim) 300 mg PO [facility] Last Admin: 09/15/17 20:05 Dose: 300 mg Alprazolam (Xanax) 0.25 mg PO BIDPRN PRN PRN Reason: Anxiety Last Admin: 09/15/17 00:14 Dose: 0.25 mg Apixaban (Eliquis) 5 mg PO BID [facility] Last Admin: 09/16/17 08:15 Dose: 5 mg Aspirin (Ecotrin) 81 mg PO DAILY [facility] Last Admin: 09/16/17 08:14 Dose: 81 mg Baclofen (Lioresal) 5 mg PO TID [facility] Last Admin: 09/16/17 16:32 Dose: 5 mg Bisacodyl (Dulcolax) 10 mg [place] Q24H PRN PRN Reason: Constipation Bupropion HCl (Wellbutrin Sr) 150 mg PO DAILY [facility] Last Admin: 09/16/17 08:15 Dose: 150 mg Calcium Carbonate (Tums) 1,000 mg PO Q4H PRN PRN Reason: Heartburn or Indigestion Dextrose/Water (Dextrose 50%) 25 gm SLOW IVP PRN PRN PRN Reason: Hypoglycemia Famotidine (Pepcid) 20 mg PO BID [facility] Last Admin: 09/16/17 08:14 Dose: 20 mg Glucagon (Glucagon) 1 mg IM PRN PRN PRN Reason: Hypoglycemia Dextrose/Water (D5w) 1,000 mls @ 0 mls/hr IV .Q0M PRN; As Directed PRN Reason: Hypoglycemia Insulin Human Regular (Humulin R) 0 units [place] .MILD SLIDING SCALE PRN PRN Reason: Mild Correctional Scale Last Admin: 09/11/17 17:12 Dose: 2 unit Insulin Human Regular (Humulin R) 0 units [place] .BEDTIME SLIDING SC PRN PRN Reason: Bedtime Correctional Scale Lisinopril (Zestril) 10 mg PO QAM [facility] Last Admin: 09/16/17 08:15 Dose: 10 mg Lisinopril (Zestril) 5 mg PO HS [facility] Last Admin: 09/15/17 20:06 Dose: 5 mg Magnesium Hydroxide (Milk Of Magnesium) 30 ml PO DAILYPRN PRN PRN Reason: Constipation Mineral Oil/White Petrolatum (Eucerin Cream) 0 gm TOP BIDPRN PRN PRN Reason: Dry Skin Nitroglycerin (Nitrostat) 0.4 mg PO Q5MIN PRN PRN Reason: Chest Pain Nystatin (Mycostatin Powder) 0 gm TOP BID [facility] Last Admin: 09/16/17 08:16 Dose: 1 applic Ondansetron HCl (Zofran Odt) 4 mg PO Q6H PRN PRN Reason: Nausea/Vomiting Last Admin: 09/09/17 04:42 Dose: 4 mg Ondansetron HCl (Zofran) 4 mg IVP Q6H PRN PRN Reason: Nausea/Vomiting Polyethylene Glycol (Miralax) 17 gm PO DAILY [facility] Last Admin: 09/16/17 08:16 Dose: 17 gm Psyllium Hydrophilic Mucilloid (Metamucil) 1 pk PO DAILYPRN PRN PRN Reason: CONSTIPATION Last Admin: 09/08/17 20:36 Dose: 1 pk Senna/Docusate Sodium (Senokot S) 1 tab PO BID [facility] Last Admin: 09/16/17 08:16 Dose: Not Given Tamsulosin HCl (Flomax) 0.4 mg PO DAILY [facility] Last Admin: 09/16/17 08:15 Dose: 0.4 mg Tizanidine HCl (Zanaflex) 4 mg PO BID PRN PRN Reason: Muscle Spasm Last Admin: 09/16/17 00:57 Dose: 4 mg
[2017-09-16] MEDS: Allopurinol 300 MG TAB PO SCH (21:08)
[2017-09-16] MEDS: Lisinopril 5 MG TAB PO SCH (21:09)
[2017-09-17] MEDS: Bupropion 150 MG SR TAB PO SCH (08:02)
[2017-09-17] MEDS: HYDROcodone/Acetaminophen 10/325 mg Tablet PO PRN ×2 (08:03→21:59)
[2017-09-17] MEDS: Apixaban 5 MG TAB PO SCH ×2 (08:03→21:58)
[2017-09-17] MEDS: Famotidine 20 MG TAB PO SCH ×2 (08:03→21:58)
[2017-09-17] MEDS: Baclofen 10 MG TAB PO SCH ×3 (08:03→21:58)
[2017-09-17] MEDS: Lisinopril 10 MG TAB PO SCH (08:04)
[2017-09-17] MEDS: Polyethylene Glycol 3350 17 GM Packet PO SCH (08:04)
[2017-09-17] MEDS: Senokot S 8.6-50 MG TAB PO SCH ×2 (08:04→21:59)
[2017-09-17] MEDS: Nystatin Powder 15 GM BOT TOP SCH ×2 (08:05→21:59)
[2017-09-17] MEDS: Tamsulosin HCl 0.4 MG CAP PO SCH (08:05)
[2017-09-17] MEDS: Aspirin 81 mg Enteric Coated Tablet PO SCH (08:05)
--- NOTE | 2017-09-17 16:22 | PDOC.PN ---
- Subjective Encounter Start Date: 09/17/17 Encounter Start Time: 10:30 Patient seen and examined for CP. No new complaints. No overnight events - Objective Resuscitation Status: Resuscitation Status FULL:Full Resuscitation MAR Reviewed: Yes Vital Signs & Weight: Vital Signs (12 hours) Temp Pulse Resp BP BP Pulse Ox 09/17/17 11:25 98.4 F 95 20 118/84 96 09/17/17 08:04 131/85 09/17/17 07:54 97.6 F 84 20 09/17/17 07:40 97.6 F 84 20 131/85 96 Weight Admit Weight 354 lb 9.6 oz Weight 355 lb 1.6 oz I&O: 09/16/17 09/17/17 09/18/17 06:59 06:59 06:59 Intake Total 1900 2255 480 Balance 1900 2255 480 Result Diagrams: 09/10/17 04:39 09/10/17 04:39 Additional Labs: Accuchecks 09/17/17 09/17/17 09/16/17 11:25 04:56 19:35 POC Glucose 106 132 H 110 09/16/17 16:54 POC Glucose 106 Phys Exam - Physical Examination Constitutional: NAD Neck: no JVD Musculoskeletal: no edema Psychiatric: A&O x 3 Dx/Plan - Plan FINAL DIAGNOSES: 1. Chest discomfort, acute coronary syndrome ruled out. Cleared by Cardiology 2. Recent negative stress test. 3. Hypertension. 4. Diabetes mellitus, type 2. on sliding scale 5. Morbid obesity with a BMI of 46.8. 6. Chronic kidney disease, stage 2. 7. Obstructive sleep apnea. 8. History of pulmonary embolism, on anticoagulation. 9. Chronic pain syndrome. 10. Benign prostatic hypertrophy. 11. Chronic bedridden status, due to back injury in the past. PLAN: Await placement Stable for dc since 09/06 Review of Systems - Review of Systems Respiratory: negative: Cough, Dry, Shortness of Breath, Hemoptysis, SOB with Excertion, Pleuritic Pain, Sputum, Wheezing Cardiovascular: negative: chest pain, palpitations, orthopnea, paroxysmal nocturnal dyspnea, edema, light headedness, other - Medications/Allergies Allergies/Adverse Reactions: Allergies Allergy/AdvReac Type Severity Reaction Status Date / Time No Known Allergies Allergy Verified 09/06/17 04:37 Medications: Current Medications Acetaminophen (Tylenol) 650 mg PO Q4H PRN PRN Reason: Headache/Fever or Pain Last Admin: 09/12/17 00:32 Dose: 650 mg Hydrocodone Bitart/Acetaminophen ([place] 5/325) 1 tab PO Q4H PRN PRN Reason: Mild Pain (1-3) Hydrocodone Bitart/Acetaminophen ([place] 10/325) 1 tab PO Q4H PRN PRN Reason: Moderate Pain (4-6) Last Admin: 09/17/17 08:03 Dose: 1 tab Al Hydroxide/Mg Hydroxide (Maalox) 30 ml PO Q6H PRN PRN Reason: Heartburn or Indigestion Allopurinol (Zyloprim) 300 mg PO [facility] Last Admin: 09/16/17 21:08 Dose: 300 mg Alprazolam (Xanax) 0.25 mg PO BIDPRN PRN PRN Reason: Anxiety Last Admin: 09/15/17 00:14 Dose: 0.25 mg Apixaban (Eliquis) 5 mg PO BID [facility] Last Admin: 09/17/17 08:03 Dose: 5 mg Aspirin (Ecotrin) 81 mg PO DAILY [facility] Last Admin: 09/17/17 08:05 Dose: 81 mg Baclofen (Lioresal) 5 mg PO TID [facility] Last Admin: 09/17/17 16:14 Dose: 5 mg Bisacodyl (Dulcolax) 10 mg [place] Q24H PRN PRN Reason: Constipation Bupropion HCl (Wellbutrin Sr) 150 mg PO DAILY [facility] Last Admin: 09/17/17 08:02 Dose: 150 mg Calcium Carbonate (Tums) 1,000 mg PO Q4H PRN PRN Reason: Heartburn or Indigestion Dextrose/Water (Dextrose 50%) 25 gm SLOW IVP PRN PRN PRN Reason: Hypoglycemia Famotidine (Pepcid) 20 mg PO BID [facility] Last Admin: 09/17/17 08:03 Dose: 20 mg Glucagon (Glucagon) 1 mg IM PRN PRN PRN Reason: Hypoglycemia Dextrose/Water (D5w) 1,000 mls @ 0 mls/hr IV .Q0M PRN; As Directed PRN Reason: Hypoglycemia Insulin Human Regular (Humulin R) 0 units [place] .MILD SLIDING SCALE PRN PRN Reason: Mild Correctional Scale Last Admin: 09/11/17 17:12 Dose: 2 unit Insulin Human Regular (Humulin R) 0 units SC .BEDTIME SLIDING SC PRN PRN Reason: Bedtime Correctional Scale Lisinopril (Zestril) 10 mg PO QAM [facility] Last Admin: 09/17/17 08:04 Dose: 10 mg Lisinopril (Zestril) 5 mg PO HS [facility] Last Admin: 09/16/17 21:09 Dose: 5 mg Magnesium Hydroxide (Milk Of Magnesium) 30 ml PO DAILYPRN PRN PRN Reason: Constipation Mineral Oil/White Petrolatum (Eucerin Cream) 0 gm TOP BIDPRN PRN PRN Reason: Dry Skin Nitroglycerin (Nitrostat) 0.4 mg PO Q5MIN PRN PRN Reason: Chest Pain Nystatin (Mycostatin Powder) 0 gm TOP BID [facility] Last Admin: 09/17/17 08:05 Dose: 1 applic Ondansetron HCl (Zofran Odt) 4 mg PO Q6H PRN PRN Reason: Nausea/Vomiting Last Admin: 09/09/17 04:42 Dose: 4 mg Ondansetron HCl (Zofran) 4 mg IVP Q6H PRN PRN Reason: Nausea/Vomiting Polyethylene Glycol (Miralax) 17 gm PO DAILY [facility] Last Admin: 09/17/17 08:04 Dose: 17 gm Psyllium Hydrophilic Mucilloid (Metamucil) 1 pk PO DAILYPRN PRN PRN Reason: CONSTIPATION Last Admin: 09/08/17 20:36 Dose: 1 pk Senna/Docusate Sodium (Senokot S) 1 tab PO BID [facility] Last Admin: 09/17/17 08:04 Dose: 1 tab Tamsulosin HCl (Flomax) 0.4 mg PO DAILY [facility] Last Admin: 09/17/17 08:05 Dose: 0.4 mg Tizanidine HCl (Zanaflex) 4 mg PO BID PRN PRN Reason: Muscle Spasm Last Admin: 09/16/17 21:10 Dose: 4 mg
[2017-09-17] MEDS: Allopurinol 300 MG TAB PO SCH (21:58)
[2017-09-17] MEDS: Lisinopril 5 MG TAB PO SCH (21:58)
[2017-09-17] MEDS: tiZANidine HCl 4 MG TAB PO PRN (21:59)
[2017-09-17] MEDS: ALPRAZolam 0.25 MG TAB PO PRN (21:59)
[2017-09-18] MEDS: HYDROcodone/Acetaminophen 10/325 mg Tablet PO PRN ×2 (06:21→20:14)
[2017-09-18] MEDS: Aspirin 81 mg Enteric Coated Tablet PO SCH (10:18)
[2017-09-18] MEDS: Apixaban 5 MG TAB PO SCH ×2 (10:18→20:13)
[2017-09-18] MEDS: Tamsulosin HCl 0.4 MG CAP PO SCH (10:18)
[2017-09-18] MEDS: Senokot S 8.6-50 MG TAB PO SCH (10:18)
[2017-09-18] MEDS: Bupropion 150 MG SR TAB PO SCH (10:18)
[2017-09-18] MEDS: Baclofen 10 MG TAB PO SCH ×3 (10:18→20:13)
[2017-09-18] MEDS: Famotidine 20 MG TAB PO SCH ×2 (10:19→20:13)
[2017-09-18] MEDS: Lisinopril 10 MG TAB PO SCH (10:19)
[2017-09-18] MEDS: Polyethylene Glycol 3350 17 GM Packet PO SCH (10:22)
[2017-09-18] MEDS: Nystatin Powder 15 GM BOT TOP SCH ×2 (10:22→20:14)
[2017-09-18] MEDS: tiZANidine HCl 4 MG TAB PO PRN (16:23)
[2017-09-18] MEDS: ALPRAZolam 0.25 MG TAB PO PRN (20:13)
[2017-09-18] MEDS: Lisinopril 5 MG TAB PO SCH (20:13)
[2017-09-18] MEDS: Allopurinol 300 MG TAB PO SCH (20:14)
--- NOTE | 2017-09-18 20:14 | PDOC.PN ---
- Subjective Encounter Start Date: 09/18/17 Encounter Start Time: 08:00 Patient seen and examined for CP. No CP/SOB. No new complaints. No overnight events - Objective Resuscitation Status: Resuscitation Status FULL:Full Resuscitation MAR Reviewed: Yes Vital Signs & Weight: Vital Signs (12 hours) Temp Pulse Resp BP BP Pulse Ox 09/18/17 20:00 99.4 F 90 18 112/72 96 09/18/17 16:00 99.4 F 100 20 123/88 98 09/18/17 11:39 98.3 F 91 20 128/58 L 98 09/18/17 10:19 124/87 Weight Admit Weight 354 lb 9.6 oz Weight 355 lb 1.6 oz I&O: 09/17/17 09/18/17 09/19/17 06:59 06:59 06:59 Intake Total 2255 2135 Balance 2255 2135 Result Diagrams: 09/10/17 04:39 09/10/17 04:39 Additional Labs: Accuchecks 09/18/17 09/18/17 09/18/17 16:55 11:04 05:45 POC Glucose 111 H 124 H 120 H 09/17/17 19:45 POC Glucose 121 H Phys Exam - Physical Examination Constitutional: NAD Respiratory: no wheezing, no rhonchi Cardiovascular: RRR, no rub Gastrointestinal: soft, non-tender, positive bowel sounds Musculoskeletal: no edema Neurological: moves all 4 limbs Dx/Plan - Plan FINAL DIAGNOSES: 1. Chest discomfort, acute coronary syndrome ruled out. Cleared by Cardiology 2. Recent negative stress test. 3. Hypertension. 4. Diabetes mellitus, type 2. on sliding scale 5. Morbid obesity with a BMI of 46.8. 6. Chronic kidney disease, stage 2. 7. Obstructive sleep apnea. 8. History of pulmonary embolism, on anticoagulation. 9. Chronic pain syndrome. 10. Benign prostatic hypertrophy. 11. Chronic bedridden status, due to back injury in the past. PLAN: Await placement Stable for dc since 7 AM labs Q1wk Review of Systems - Review of Systems Respiratory: negative: Cough, Dry, Shortness of Breath, Hemoptysis, SOB with Excertion, Pleuritic Pain, Sputum, Wheezing Cardiovascular: negative: chest pain, palpitations, orthopnea, paroxysmal nocturnal dyspnea, edema, light headedness, other - Medications/Allergies Allergies/Adverse Reactions: Allergies Allergy/AdvReac Type Severity Reaction Status Date / Time No Known Allergies Allergy Verified 09/06/17 04:37 Medications: Current Medications Acetaminophen (Tylenol) 650 mg PO Q4H PRN PRN Reason: Headache/Fever or Pain Last Admin: 09/12/17 00:32 Dose: 650 mg Hydrocodone Bitart/Acetaminophen ([place] 5/325) 1 tab PO Q4H PRN PRN Reason: Mild Pain (1-3) Hydrocodone Bitart/Acetaminophen ([place] 10/325) 1 tab PO Q4H PRN PRN Reason: Moderate Pain (4-6) Last Admin: 09/18/17 06:21 Dose: 1 tab Al Hydroxide/Mg Hydroxide (Maalox) 30 ml PO Q6H PRN PRN Reason: Heartburn or Indigestion Allopurinol (Zyloprim) 300 mg PO HS [facility] Last Admin: 09/17/17 21:58 Dose: 300 mg Alprazolam (Xanax) 0.25 mg PO BIDPRN PRN PRN Reason: Anxiety Last Admin: 09/17/17 21:59 Dose: 0.25 mg Apixaban (Eliquis) 5 mg PO BID [facility] Last Admin: 09/18/17 10:18 Dose: 5 mg Aspirin (Ecotrin) 81 mg PO DAILY [facility] Last Admin: 09/18/17 10:18 Dose: 81 mg Baclofen (Lioresal) 5 mg PO TID [facility] Last Admin: 09/18/17 16:23 Dose: 5 mg Bisacodyl (Dulcolax) 10 mg [place] Q24H PRN PRN Reason: Constipation Bupropion HCl (Wellbutrin Sr) 150 mg PO DAILY [facility] Last Admin: 09/18/17 10:18 Dose: 150 mg Calcium Carbonate (Tums) 1,000 mg PO Q4H PRN PRN Reason: Heartburn or Indigestion Dextrose/Water (Dextrose 50%) 25 gm SLOW IVP PRN PRN PRN Reason: Hypoglycemia Famotidine (Pepcid) 20 mg PO BID [facility] Last Admin: 09/18/17 10:19 Dose: 20 mg Glucagon (Glucagon) 1 mg IM PRN PRN PRN Reason: Hypoglycemia Dextrose/Water (D5w) 1,000 mls @ 0 mls/hr IV .Q0M PRN; As Directed PRN Reason: Hypoglycemia Insulin Human Regular (Humulin R) 0 units [place] .MILD SLIDING SCALE PRN PRN Reason: Mild Correctional Scale Last Admin: 09/11/17 17:12 Dose: 2 unit Insulin Human Regular (Humulin R) 0 units [place] .BEDTIME SLIDING SC PRN PRN Reason: Bedtime Correctional Scale Lisinopril (Zestril) 10 mg PO QAM [facility] Last Admin: 09/18/17 10:19 Dose: 10 mg Lisinopril (Zestril) 5 mg PO HS [facility] Last Admin: 09/17/17 21:58 Dose: 5 mg Magnesium Hydroxide (Milk Of Magnesium) 30 ml PO DAILYPRN PRN PRN Reason: Constipation Mineral Oil/White Petrolatum (Eucerin Cream) 0 gm TOP BIDPRN PRN PRN Reason: Dry Skin Nitroglycerin (Nitrostat) 0.4 mg PO Q5MIN PRN PRN Reason: Chest Pain Nystatin (Mycostatin Powder) 0 gm TOP BID [facility] Last Admin: 09/18/17 10:22 Dose: 1 applic Ondansetron HCl (Zofran Odt) 4 mg PO Q6H PRN PRN Reason: Nausea/Vomiting Last Admin: 09/09/17 04:42 Dose: 4 mg Ondansetron HCl (Zofran) 4 mg IVP Q6H PRN PRN Reason: Nausea/Vomiting Polyethylene Glycol (Miralax) 17 gm PO DAILY [facility] Last Admin: 09/18/17 10:22 Dose: 17 gm Psyllium Hydrophilic Mucilloid (Metamucil) 1 pk PO DAILYPRN PRN PRN Reason: CONSTIPATION Last Admin: 09/08/17 20:36 Dose: 1 pk Senna/Docusate Sodium (Senokot S) 1 tab PO BID [facility] Last Admin: 09/18/17 10:18 Dose: 1 tab Tamsulosin HCl (Flomax) 0.4 mg PO DAILY [facility] Last Admin: 09/18/17 10:18 Dose: 0.4 mg Tizanidine HCl (Zanaflex) 4 mg PO BID PRN PRN Reason: Muscle Spasm Last Admin: 09/18/17 16:23 Dose: 4 mg
[2017-09-19] MEDS: tiZANidine HCl 4 MG TAB PO PRN (03:46)
[2017-09-19] MEDS: HYDROcodone/Acetaminophen 10/325 mg Tablet PO PRN ×3 (03:46→20:13)
[2017-09-19] MEDS: Baclofen 10 MG TAB PO SCH ×3 (08:31→20:11)
[2017-09-19] MEDS: Tamsulosin HCl 0.4 MG CAP PO SCH (08:31)
[2017-09-19] MEDS: Apixaban 5 MG TAB PO SCH ×2 (08:31→20:11)
[2017-09-19] MEDS: Bupropion 150 MG SR TAB PO SCH (08:32)
[2017-09-19] MEDS: Aspirin 81 mg Enteric Coated Tablet PO SCH (08:32)
[2017-09-19] MEDS: Nystatin Powder 15 GM BOT TOP SCH ×2 (08:32→20:14)
[2017-09-19] MEDS: Lisinopril 10 MG TAB PO SCH (08:32)
[2017-09-19] MEDS: Polyethylene Glycol 3350 17 GM Packet PO SCH (08:33)
[2017-09-19] MEDS: Senokot S 8.6-50 MG TAB PO SCH ×2 (08:33→20:12)
[2017-09-19] MEDS: Famotidine 20 MG TAB PO SCH ×2 (08:35→20:12)
[2017-09-19 11:29] LABS: #Eosinphils 0.1 thou/uL (0.0-0.7); #Lymphocytes 1.9 thou/uL (1.20-3.40); #Monocytes 0.7 thou/uL (0.11-0.59); %Basophils 0.2 % (0.0-1.0); %Eosinophils 1.6 % (0.0-10.0); %Lymphocytes 33.6 % (21.0-51.0); %Monocytes 11.9 % (0.0-10.0); %Neutrophils 52.8 % (42.0-75.0); Hemoglobin 12.2 g/dL (14.0-18.0); Mean Corpuscular HGB CONC 33.4 g/dL (32.0-36.0); Mean Corpuscular Hemoglobin 30.1 pg (27.0-31.0); Mean Platelet Volume 6.3 fL (7.4-10.4); Platelet Count 326 thou/uL (130-400); Red Blood Cell (RBC) Count 4.06 mill/uL (4.70-6.10); White Blood Cell (WBC) Count 5.6 thou/uL (4.8-10.8)
[2017-09-19 11:55] LABS: Anion Gap 14 mmol/L (10-20); BUN (Urea Nitrogen) 12 mg/dL (8.4-25.7); Calc. Creatinine Clearance 157 mL/min (70-130); Calcium 10.5 mg/dL (7.8-10.44); Carbon Dioxide 25 mmol/L (22-29); Chloride 105 mmol/L (98-107); Estimated GFR-MDRD 73; Glucose 105 mg/dL (70-105); Magnesium 1.7 mg/dL (1.6-2.6); Potassium 3.6 mmol/L (3.5-5.1); Sodium 140 mmol/L (136-145)
--- NOTE | 2017-09-19 17:40 | PDOC.PN ---
- Subjective Encounter Start Date: 09/19/17 Encounter Start Time: 11:00 Patient seen and examined for CP - resolved. No new complaints. No overnight events - Objective Resuscitation Status: Resuscitation Status FULL:Full Resuscitation MAR Reviewed: Yes Vital Signs & Weight: Vital Signs (12 hours) Temp Pulse Resp BP BP Pulse Ox 09/19/17 16:31 99.5 F 88 20 125/87 98 09/19/17 11:50 97.8 F 89 18 120/85 95 09/19/17 08:32 121/86 09/19/17 08:20 97.8 F 88 20 121/86 94 L 09/19/17 08:00 97.8 F 88 20 Weight Admit Weight 354 lb 9.6 oz Weight 355 lb 1.6 oz I&O: 09/18/17 09/19/17 09/20/17 06:59 06:59 06:59 Intake Total 2135 800 420 Balance 2135 800 420 Result Diagrams: 09/19/17 11:17 09/19/17 11:17 Additional Labs: Accuchecks 09/19/17 09/19/17 09/18/17 11:32 04:12 20:00 POC Glucose 102 133 H 124 H Phys Exam - Physical Examination Constitutional: NAD Respiratory: no wheezing, no rhonchi Cardiovascular: RRR, no rub Gastrointestinal: soft, non-tender, positive bowel sounds Musculoskeletal: no edema Neurological: moves all 4 limbs Dx/Plan - Plan FINAL DIAGNOSES: 1. Chest discomfort, acute coronary syndrome ruled out. Cleared by Cardiology for discharge. 2. Recent negative stress test. 3. Hypertension. 4. Diabetes mellitus, type 2. on sliding scale 5. Morbid obesity with a BMI of 46.8. 6. Chronic kidney disease, stage 2. 7. Obstructive sleep apnea. 8. History of pulmonary embolism, on anticoagulation. 9. Chronic pain syndrome. 10. Benign prostatic hypertrophy. 11. Chronic bedridden status, due to back injury in the past. PLAN: Await placement, Stable for dc since 09/06 Review of Systems - Review of Systems Respiratory: negative: Cough, Dry, Shortness of Breath, Hemoptysis, SOB with Excertion, Pleuritic Pain, Sputum, Wheezing Cardiovascular: negative: chest pain, palpitations, orthopnea, paroxysmal nocturnal dyspnea, edema, light headedness, other - Medications/Allergies Allergies/Adverse Reactions: Allergies Allergy/AdvReac Type Severity Reaction Status Date / Time No Known Allergies Allergy Verified 09/06/17 04:37 Medications: Current Medications Acetaminophen (Tylenol) 650 mg PO Q4H PRN PRN Reason: Headache/Fever or Pain Last Admin: 09/12/17 00:32 Dose: 650 mg Hydrocodone Bitart/Acetaminophen ([employer] 5/325) 1 tab PO Q4H PRN PRN Reason: Mild Pain (1-3) Hydrocodone Bitart/Acetaminophen ([employer] 10/325) 1 tab PO Q4H PRN PRN Reason: Moderate Pain (4-6) Last Admin: 09/19/17 15:59 Dose: 1 tab Al Hydroxide/Mg Hydroxide (Maalox) 30 ml PO Q6H PRN PRN Reason: Heartburn or Indigestion Allopurinol (Zyloprim) 300 mg PO HS [facility] Last Admin: 09/18/17 20:14 Dose: 300 mg Alprazolam (Xanax) 0.25 mg PO BIDPRN PRN PRN Reason: Anxiety Last Admin: 09/18/17 20:13 Dose: 0.25 mg Apixaban (Eliquis) 5 mg PO BID [facility] Last Admin: 09/19/17 08:31 Dose: 5 mg Aspirin (Ecotrin) 81 mg PO DAILY [facility] Last Admin: 09/19/17 08:32 Dose: 81 mg Baclofen (Lioresal) 5 mg PO TID [facility] Last Admin: 09/19/17 15:59 Dose: 5 mg Bisacodyl (Dulcolax) 10 mg [place] Q24H PRN PRN Reason: Constipation Bupropion HCl (Wellbutrin Sr) 150 mg PO DAILY [facility] Last Admin: 09/19/17 08:32 Dose: 150 mg Calcium Carbonate (Tums) 1,000 mg PO Q4H PRN PRN Reason: Heartburn or Indigestion Dextrose/Water (Dextrose 50%) 25 gm SLOW IVP PRN PRN PRN Reason: Hypoglycemia Famotidine (Pepcid) 20 mg PO BID [facility] Last Admin: 09/19/17 08:35 Dose: 20 mg Glucagon (Glucagon) 1 mg IM PRN PRN PRN Reason: Hypoglycemia Dextrose/Water (D5w) 1,000 mls @ 0 mls/hr IV .Q0M PRN; As Directed PRN Reason: Hypoglycemia Insulin Human Regular (Humulin R) 0 units [place] .MILD SLIDING SCALE PRN PRN Reason: Mild Correctional Scale Last Admin: 09/11/17 17:12 Dose: 2 unit Insulin Human Regular (Humulin R) 0 units SC .BEDTIME SLIDING SC PRN PRN Reason: Bedtime Correctional Scale Lisinopril (Zestril) 10 mg PO QAM [facility] Last Admin: 09/19/17 08:32 Dose: 10 mg Lisinopril (Zestril) 5 mg PO HS [facility] Last Admin: 09/18/17 20:13 Dose: 5 mg Magnesium Hydroxide (Milk Of Magnesium) 30 ml PO DAILYPRN PRN PRN Reason: Constipation Mineral Oil/White Petrolatum (Eucerin Cream) 0 gm TOP BIDPRN PRN PRN Reason: Dry Skin Nitroglycerin (Nitrostat) 0.4 mg PO Q5MIN PRN PRN Reason: Chest Pain Nystatin (Mycostatin Powder) 0 gm TOP BID [facility] Last Admin: 09/19/17 08:32 Dose: 1 applic Ondansetron HCl (Zofran Odt) 4 mg PO Q6H PRN PRN Reason: Nausea/Vomiting Last Admin: 09/09/17 04:42 Dose: 4 mg Ondansetron HCl (Zofran) 4 mg IVP Q6H PRN PRN Reason: Nausea/Vomiting Polyethylene Glycol (Miralax) 17 gm PO DAILY [facility] Last Admin: 09/19/17 08:33 Dose: Not Given Psyllium Hydrophilic Mucilloid (Metamucil) 1 pk PO DAILYPRN PRN PRN Reason: CONSTIPATION Last Admin: 09/08/17 20:36 Dose: 1 pk Senna/Docusate Sodium (Senokot S) 1 tab PO BID [facility] Last Admin: 09/19/17 08:33 Dose: Not Given Tamsulosin HCl (Flomax) 0.4 mg PO DAILY [facility] Last Admin: 09/19/17 08:31 Dose: 0.4 mg Tizanidine HCl (Zanaflex) 4 mg PO BID PRN PRN Reason: Muscle Spasm Last Admin: 09/19/17 03:46 Dose: 4 mg
[2017-09-19] MEDS: Lisinopril 5 MG TAB PO SCH (20:11)
[2017-09-19] MEDS: Allopurinol 300 MG TAB PO SCH (20:12)
[2017-09-20] MEDS: HYDROcodone/Acetaminophen 10/325 mg Tablet PO PRN ×3 (02:14→20:21)
[2017-09-20] MEDS: ALPRAZolam 0.25 MG TAB PO PRN (02:14)
[2017-09-20] MEDS: Baclofen 10 MG TAB PO SCH ×3 (09:15→20:20)
[2017-09-20] MEDS: Apixaban 5 MG TAB PO SCH ×2 (09:15→20:21)
[2017-09-20] MEDS: Tamsulosin HCl 0.4 MG CAP PO SCH (09:16)
[2017-09-20] MEDS: Lisinopril 10 MG TAB PO SCH (09:16)
[2017-09-20] MEDS: Famotidine 20 MG TAB PO SCH ×2 (09:16→20:22)
[2017-09-20] MEDS: Aspirin 81 mg Enteric Coated Tablet PO SCH (09:16)
[2017-09-20] MEDS: Polyethylene Glycol 3350 17 GM Packet PO SCH (09:16)
[2017-09-20] MEDS: Senokot S 8.6-50 MG TAB PO SCH ×2 (09:16→20:20)
[2017-09-20] MEDS: Bupropion 150 MG SR TAB PO SCH (09:17)
[2017-09-20] MEDS: Nystatin Powder 15 GM BOT TOP SCH ×2 (09:17→20:22)
--- NOTE | 2017-09-20 18:30 | PDOC.PN ---
- Subjective Encounter Start Date: 09/20/17 Encounter Start Time: 18:29 Subjective: LW weakness and spasms, awaiting placement - Objective Resuscitation Status: Resuscitation Status FULL:Full Resuscitation MAR Reviewed: Yes Vital Signs & Weight: Vital Signs (12 hours) Temp Pulse Resp BP BP Pulse Ox 09/20/17 17:41 97.9 F 98 20 116/80 95 09/20/17 09:16 129/87 09/20/17 07:49 97.7 F 96 20 129/87 97 09/20/17 07:31 97.7 F 98 20 Weight Admit Weight 354 lb 9.6 oz Weight 355 lb 1.6 oz I&O: 09/19/17 09/20/17 09/21/17 06:59 06:59 06:59 Intake Total 800 2280 420 Balance 800 2280 420 Result Diagrams: 09/19/17 11:17 09/19/17 11:17 Additional Labs: Accuchecks 09/20/17 09/20/17 09/19/17 11:18 04:24 19:41 POC Glucose 120 H 140 H 116 H Radiology Reviewed by me: Yes EKG Reviewed by me: Yes Phys Exam - Physical Examination HEENT: PERRLA, moist MMs, sclera anicteric, TM's clear, oral pharynx no lesions , 2+ tonsils Neck: no nodes, no JVD, supple, full ROM Respiratory: no wheezing, no rales, no rhonchi, wheezing present, clear to auscultation bilateral Cardiovascular: RRR, no significant murmur, no rub, gallop, irregular Gastrointestinal: soft, non-tender, no distention, positive bowel sounds Musculoskeletal: edema present weakness of LE Dx/Plan (1) CKD (chronic kidney disease) stage 2, GFR 60-89 ml/min Code(s): N18.2 - CHRONIC KIDNEY DISEASE, STAGE 2 (MILD) Status: Acute Comment: Patient is on oral fluids, Well hydrated. (2) Chest pain Code(s): R07.9 - CHEST PAIN, UNSPECIFIED Status: Acute Comment: Stbale, had neg nuclear Stres test. Stbnale to dischagre, looking for plameent to Rehab/ SNF. insurance auth failed. Will follow CM recommedations. (3) Muscle spasms of both lower extremities Code(s): M62.838 - OTHER MUSCLE SPASM Status: Acute Comment: Will increase Baclofen 7.5mg po TID, pt on PRN Zanaflex. No improveemnt according to patient - Plan cont current plan of care, PT/OT, DVT proph w/lovenox FINAL DIAGNOSES: 1. Chest discomfort, acute coronary syndrome ruled out. Cleared by Cardiology for discharge. 2. Recent negative stress test. 3. Hypertension. 4. Diabetes mellitus, type 2. on sliding scale 5. Morbid obesity with a BMI of 46.8. 6. Chronic kidney disease, stage 2. 7. Obstructive sleep apnea. 8. History of pulmonary embolism, on anticoagulation. 9. Chronic pain syndrome. 10. Benign prostatic hypertrophy. 11. Chronic bedridden status, due to back injury in the past. PLAN: Await placement, Stable for dc since 09/06 * .
[2017-09-20] MEDS: Lisinopril 5 MG TAB PO SCH (20:21)
[2017-09-20] MEDS: Allopurinol 300 MG TAB PO SCH (20:21)
[2017-09-21] MEDS: HYDROcodone/Acetaminophen 10/325 mg Tablet PO PRN ×3 (02:02→20:48)
[2017-09-21] MEDS: ALPRAZolam 0.25 MG TAB PO PRN ×2 (02:04→20:50)
[2017-09-21] MEDS: Tamsulosin HCl 0.4 MG CAP PO SCH (07:39)
[2017-09-21] MEDS: Aspirin 81 mg Enteric Coated Tablet PO SCH (07:39)
[2017-09-21] MEDS: Baclofen 10 MG TAB PO SCH ×3 (07:39→20:47)
[2017-09-21] MEDS: Senokot S 8.6-50 MG TAB PO SCH ×2 (07:39→20:48)
[2017-09-21] MEDS: Lisinopril 10 MG TAB PO SCH (07:40)
[2017-09-21] MEDS: Polyethylene Glycol 3350 17 GM Packet PO SCH (07:40)
[2017-09-21] MEDS: Apixaban 5 MG TAB PO SCH ×2 (07:40→20:48)
[2017-09-21] MEDS: Nystatin Powder 15 GM BOT TOP SCH ×2 (07:41→20:50)
[2017-09-21] MEDS: Bupropion 150 MG SR TAB PO SCH (07:41)
[2017-09-21] MEDS: Famotidine 20 MG TAB PO SCH ×2 (08:41→20:48)
--- NOTE | 2017-09-21 18:52 | PDOC.PN ---
- Subjective Encounter Start Date: 09/21/17 Encounter Start Time: 18:50 Subjective: Seen and examine. NAD. No overnight events. - Objective Resuscitation Status: Resuscitation Status FULL:Full Resuscitation Vital Signs & Weight: Vital Signs (12 hours) Temp Pulse Resp BP BP Pulse Ox 09/21/17 15:34 98.6 F 83 16 120/79 99 09/21/17 12:00 98.1 F 100 16 127/88 95 09/21/17 08:00 98 F 99 14 116/82 116/82 98 09/21/17 07:40 120/81 Weight Admit Weight 354 lb 9.6 oz Weight 355 lb 1.577 oz I&O: 09/20/17 09/21/17 09/22/17 06:59 06:59 06:59 Intake Total 2280 2410 1440 Balance 2280 2410 1440 Result Diagrams: 09/19/17 11:17 09/19/17 11:17 Additional Labs: Accuchecks 09/21/17 09/21/17 09/21/17 15:33 11:59 04:01 POC Glucose 109 137 H 130 H 09/20/17 09/20/17 19:45 16:55 POC Glucose 142 H 122 H Phys Exam - Physical Examination Constitutional: NAD HEENT: PERRLA, moist MMs Neck: no JVD Respiratory: no wheezing, no rales, no rhonchi Cardiovascular: RRR, no significant murmur Gastrointestinal: soft, non-tender, no distention, positive bowel sounds Musculoskeletal: no edema, pulses present Neurological: non-focal, normal sensation, moves all 4 limbs Psychiatric: normal affect, A&O x 3 Skin: no rash Dx/Plan (1) Chest pain Code(s): R07.9 - CHEST PAIN, UNSPECIFIED Status: Acute Comment: Stable for dischagre. awaiting placement to Rehab/ SNF. (2) Chronic high back pain Code(s): M54.9 - DORSALGIA, UNSPECIFIED; G89.29 - OTHER CHRONIC PAIN Status: Acute Comment: Pt has multiple back suregries, with now Poor mobility of lower extrmities, waiitng for Rehab placmenet for PT. (3) DM type 2 (diabetes mellitus, type 2) Status: Acute Comment: Continue home MEds, SSI. (4) HTN (hypertension) Code(s): I10 - ESSENTIAL (PRIMARY) HYPERTENSION Status: Acute Comment: Well controlled and at Goal. continue home meds (5) Muscle spasms of both lower extremities Code(s): M62.838 - OTHER MUSCLE SPASM Status: Resolved Comment: continue current mangment (6) CKD (chronic kidney disease) stage 2, GFR 60-89 ml/min Code(s): N18.2 - CHRONIC KIDNEY DISEASE, STAGE 2 (MILD) Status: Resolved - Plan * . Review of Systems - Review of Systems Constitutional: chills - Medications/Allergies Allergies/Adverse Reactions: Allergies Allergy/AdvReac Type Severity Reaction Status Date / Time No Known Allergies Allergy Verified 09/06/17 04:37 Medications: Current Medications Acetaminophen (Tylenol) 650 mg PO Q4H PRN PRN Reason: Headache/Fever or Pain Last Admin: 09/12/17 00:32 Dose: 650 mg Hydrocodone Bitart/Acetaminophen ([place] 5/325) 1 tab PO Q4H PRN PRN Reason: Mild Pain (1-3) Hydrocodone Bitart/Acetaminophen ([place] 10/325) 1 tab PO Q4H PRN PRN Reason: Moderate Pain (4-6) Last Admin: 09/21/17 14:07 Dose: 1 tab Al Hydroxide/Mg Hydroxide (Maalox) 30 ml PO Q6H PRN PRN Reason: Heartburn or Indigestion Allopurinol (Zyloprim) 300 mg PO HS [facility] Last Admin: 09/20/17 20:21 Dose: 300 mg Alprazolam (Xanax) 0.25 mg PO BIDPRN PRN PRN Reason: Anxiety Last Admin: 09/21/17 02:04 Dose: 0.25 mg Apixaban (Eliquis) 5 mg PO BID [facility] Last Admin: 09/21/17 07:40 Dose: 5 mg Aspirin (Ecotrin) 81 mg PO DAILY [facility] Last Admin: 09/21/17 07:39 Dose: 81 mg Baclofen (Lioresal) 5 mg PO TID [facility] Last Admin: 09/21/17 14:07 Dose: 5 mg Bisacodyl (Dulcolax) 10 mg IN Q24H PRN PRN Reason: Constipation Bupropion HCl (Wellbutrin Sr) 150 mg PO DAILY [facility] Last Admin: 08/02/18 07:41 Dose: 150 mg Calcium Carbonate (Tums) 1,000 mg PO Q4H PRN PRN Reason: Heartburn or Indigestion Dextrose/Water (Dextrose 50%) 25 gm SLOW IVP PRN PRN PRN Reason: Hypoglycemia Famotidine (Pepcid) 20 mg PO BID [facility] Last Admin: 09/21/17 08:41 Dose: 20 mg Glucagon (Glucagon) 1 mg IM PRN PRN PRN Reason: Hypoglycemia Dextrose/Water (D5w) 1,000 mls @ 0 mls/hr IV .Q0M PRN; As Directed PRN Reason: Hypoglycemia Insulin Human Regular (Humulin R) 0 units SC .MILD SLIDING SCALE PRN PRN Reason: Mild Correctional Scale Last Admin: 09/11/17 17:12 Dose: 2 unit Insulin Human Regular (Humulin R) 0 units SC .BEDTIME SLIDING SC PRN PRN Reason: Bedtime Correctional Scale Lisinopril (Zestril) 10 mg PO QAM [facility] Last Admin: 09/21/17 07:40 Dose: 10 mg Lisinopril (Zestril) 5 mg PO HS [facility] Last Admin: 09/20/17 20:21 Dose: 5 mg Magnesium Hydroxide (Milk Of Magnesium) 30 ml PO DAILYPRN PRN PRN Reason: Constipation Mineral Oil/White Petrolatum (Eucerin Cream) 0 gm TOP BIDPRN PRN PRN Reason: Dry Skin Nitroglycerin (Nitrostat) 0.4 mg PO Q5MIN PRN PRN Reason: Chest Pain Nystatin (Mycostatin Powder) 0 gm TOP BID [facility] Last Admin: 09/21/17 07:41 Dose: 1 applic Ondansetron HCl (Zofran Odt) 4 mg PO Q6H PRN PRN Reason: Nausea/Vomiting Last Admin: 09/09/17 04:42 Dose: 4 mg Ondansetron HCl (Zofran) 4 mg IVP Q6H PRN PRN Reason: Nausea/Vomiting Polyethylene Glycol (Miralax) 17 gm PO DAILY [facility] Last Admin: 09/21/17 07:40 Dose: 17 gm Psyllium Hydrophilic Mucilloid (Metamucil) 1 pk PO DAILYPRN PRN PRN Reason: CONSTIPATION Last Admin: 09/08/17 20:36 Dose: 1 pk Senna/Docusate Sodium (Senokot S) 1 tab PO BID [facility] Last Admin: 09/21/17 07:39 Dose: 1 tab Tamsulosin HCl (Flomax) 0.4 mg PO DAILY [facility] Last Admin: 09/21/17 07:39 Dose: 0.4 mg Tizanidine HCl (Zanaflex) 4 mg PO BID PRN PRN Reason: Muscle Spasm Last Admin: 09/19/17 03:46 Dose: 4 mg
[2017-09-21] MEDS: tiZANidine HCl 4 MG TAB PO PRN (20:48)
[2017-09-21] MEDS: Allopurinol 300 MG TAB PO SCH (20:48)
[2017-09-21] MEDS: Lisinopril 5 MG TAB PO SCH (20:48)
[2017-09-22] MEDS: ALPRAZolam 0.25 MG TAB PO PRN (02:18)
[2017-09-22] MEDS: HYDROcodone/Acetaminophen 10/325 mg Tablet PO PRN (02:18)
[2017-09-22] MEDS: Apixaban 5 MG TAB PO SCH (08:17)
[2017-09-22] MEDS: Senokot S 8.6-50 MG TAB PO SCH (08:17)
[2017-09-22] MEDS: Famotidine 20 MG TAB PO SCH (08:17)
[2017-09-22] MEDS: Tamsulosin HCl 0.4 MG CAP PO SCH (08:17)
[2017-09-22] MEDS: Aspirin 81 mg Enteric Coated Tablet PO SCH (08:17)
[2017-09-22] MEDS: Baclofen 10 MG TAB PO SCH ×2 (08:17→14:32)
[2017-09-22] MEDS: Polyethylene Glycol 3350 17 GM Packet PO SCH (08:18)
[2017-09-22] MEDS: Bupropion 150 MG SR TAB PO SCH (08:18)
[2017-09-22] MEDS: Nystatin Powder 15 GM BOT TOP SCH (08:18)
[2017-09-22] MEDS: Lisinopril 10 MG TAB PO SCH (08:18)
--- NOTE | 2017-09-22 09:19 | PDOC.PN ---
- Subjective Encounter Start Date: 09/22/17 Encounter Start Time: 09:18 Subjective: NAD - Objective Resuscitation Status: Resuscitation Status FULL:Full Resuscitation MAR Reviewed: Yes Vital Signs & Weight: Vital Signs (12 hours) Temp Pulse Resp BP BP Pulse Ox 09/22/17 08:18 138/92 H 09/22/17 08:00 98.1 F 88 18 138/92 H 96 09/22/17 07:48 98.1 F 88 18 138/92 H 96 Weight Admit Weight 354 lb 9.6 oz Weight 355 lb 1.577 oz I&O: 09/21/17 09/22/17 09/23/17 06:59 06:59 06:59 Intake Total 2409 2089 Balance 2409 2089 Result Diagrams: 09/19/17 11:17 09/19/17 11:17 Additional Labs: Accuchecks 09/22/17 09/21/17 09/21/17 04:23 19:42 15:33 POC Glucose 130 H 103 109 09/21/17 11:59 POC Glucose 137 H Phys Exam - Physical Examination HEENT: PERRLA, moist MMs Neck: no JVD Respiratory: no wheezing, no rales, no rhonchi Cardiovascular: RRR, no significant murmur, no rub Gastrointestinal: soft, non-tender, no distention, positive bowel sounds Musculoskeletal: pulses present Neurological: non-focal, normal sensation, moves all 4 limbs Psychiatric: normal affect, A&O x 3 Skin: no rash Dx/Plan (1) Chest pain Code(s): R07.9 - CHEST PAIN, UNSPECIFIED Status: Acute Comment: Stable for dischagre. awaiting placement to Rehab/ SNF. (2) Chronic high back pain Code(s): M54.9 - DORSALGIA, UNSPECIFIED; G89.29 - OTHER CHRONIC PAIN Status: Acute Comment: Pt has multiple back suregries, with now Poor mobility of lower extrmities, waiitng for Rehab placmenet for PT. (3) DM type 2 (diabetes mellitus, type 2) Status: Acute Comment: Continue home MEds, SSI. (4) HTN (hypertension) Code(s): I10 - ESSENTIAL (PRIMARY) HYPERTENSION Status: Acute Comment: Well controlled and at Goal. continue home meds (5) Muscle spasms of both lower extremities Code(s): M62.838 - OTHER MUSCLE SPASM Status: Resolved Comment: continue current mangment (6) CKD (chronic kidney disease) stage 2, GFR 60-89 ml/min Code(s): N18.2 - CHRONIC KIDNEY DISEASE, STAGE 2 (MILD) Status: Resolved - Plan * . Review of Systems - Medications/Allergies Allergies/Adverse Reactions: Allergies Allergy/AdvReac Type Severity Reaction Status Date / Time No Known Allergies Allergy Verified 09/06/17 04:37
--- NOTE | 2017-09-22 15:43 | PDOC.EVN ---
Event Note - Event Note Event Note: Rx for [place] 10/325mg 1 tab po q4h prn pain #20 given for pt discharging to [facility] in [place] over the weekend. Attending physician without SHANNON rx.
[2017-09-22 16:04] VITALS: BP 126/87; TEMP 98.6
--- NOTE | 2017-09-23 14:26 | ADD-DIS ---
DISCHARGE DIAGNOSES: 1. Chest pain. 2. Chronic kidney disease, stage 2. 3. Hypertension. 4. Diabetes mellitus, type 2. 5. Muscle spasm of both lower extremities. 6. Chronic back pain. CONSULTANTS: Nephrology. The discharge summary was done on this patient on 09/06/2017, so kindly refer to the dictation that was done on this patient on 09/06/2017. Progress note for today, the patient was seen and examined by me this morning. The patient did not have any acute distress. The patient was lying in bed comfortably. The patient states that he was happy and willing to go to a penitentiary facility. PHYSICAL EXAMINATION: GENERAL: The patient appears to not be in any acute distress, lying in bed comfortably. HEENT: Normocephalic, atraumatic. Pupils are equally round and reactive to light. CARDIOVASCULAR: Positive S1, S2. Regular rate and rhythm. LUNGS: Clear to auscultation bilaterally. ABDOMEN: Obese abdomen, nontender, nondistended. EXTREMITIES: The patient is able to move all 4 extremities. The patient was in stable condition and ready to be discharged home. Like I said, please kindly refer to 09/06/2017 discharge summary. RANGEL
--- NOTE | 2017-09-28 15:07 | EKG ---
Test Reason : HYPERTENSION Blood Pressure : / mmHG Vent. Rate : 087 BPM Atrial Rate : 087 BPM P-R Int : 148 ms QRS Dur : 084 ms QT Int : 364 ms P-R-T Axes : 030 -17 013 degrees QTc Int : 438 ms Normal sinus rhythm Nonspecific T wave abnormality Abnormal ECG Baseline Artifact Present Confirmed by KRYSTA URBINA DO ([id number]), film editor supervisor ELMER ANDERSON ([id number]) on 09/28/2017 3:07:17 PM Referred By: Confirmed By:KRYSTA URBINA DO
== END 2017-09-22 17:01 ==
LOC: ERS 20:37 → 2NO 09-06 02:52 → T4-B 09-08 00:19
PROVIDERS: ADMIT Hospitalist; ATTEND Hospitalist
DX: R07.89 Other chest pain (principal); I12.9 Hypertensive chronic kidney disease with stage 1 through stage 4 chronic kidney disease, or unspecified chronic kidney disease; E11.22 Type 2 diabetes mellitus with diabetic chronic kidney disease; N18.2 Chronic kidney disease, stage 2 (mild); M62.838 Other muscle spasm; E66.01 Morbid (severe) obesity due to excess calories; Z68.42 Body mass index [BMI] 45.0-49.9, adult; G47.33 Obstructive sleep apnea (adult) (pediatric); E78.5 Hyperlipidemia, unspecified; Z79.01 Long term (current) use of anticoagulants; Z79.899 Other long term (current) drug therapy; N40.0 Benign prostatic hyperplasia without lower urinary tract symptoms; Z86.711 Personal history of pulmonary embolism
CPT/HCPCS: 71045; 71275; 80048 ×3; 80053; 82553; 82962 ×17; 83735 ×2; 84484 ×3; 85025 ×4; 93005; 94660; 94760 ×2; 97110 ×7; 97139 ×10; 97530 ×6; 99285; G0378 ×4; G8978 ×2; G8979 ×2; G8987 ×2; G8988 ×2; 36415; 36416; 90471; 90732; G0009; J1815; Q0162

== ENCOUNTER 2018-02-11 10:31 | Inpatient (IN) | payer MEDICARE, MEDICAID ==
[2018-02-11] MEDS ORDERED: Naloxone HCl 2 mg/2 ml Syringe ONE ×2 (10:44→10:50)
--- NOTE | 2018-02-11 12:08 | CT ---
CT BRAIN WITHOUT CONTRAST: Date: 02/11/18 HISTORY: Altered mental status. FINDINGS: No evidence of transcortical infarct, hemorrhage, midline shift, or abnormal extra-axial fluid collec tions are seen. There is a focal area of decreased attenuation in the right cerebellar hemisphere. Th e bony calvarium is intact. The visualized paranasal sinuses and mastoid air cells are well aerated. The ventricular size is normal and the basilar cisterns are patent. IMPRESSION: Focal hypodensity in the right cerebellar hemisphere. Infarct versus mass. Further evaluation with co ntrast enhanced MRI is recommended. POS: GALINDO
[2018-02-11 12:11] LABS: Bilirubin Negative (Negative); Blood, Urine Large (Negative); Clarity TURBID (Clear); Glucose, Urine (Dipstick) Negative (Negative); Leukocyte Large (Negative); Nitrite Negative (Negative); Protein, Urine (Dipstick) 100 mg/dL (Neg-Trace); Specific Gravity, Urine 1.012 (1.002-1.036)
[2018-02-11 12:12] LABS: #Basophils 0.1 thou/uL (0.0-0.2); #Eosinphils 0.1 thou/uL (0.0-0.7); #Lymphocytes 2.3 thou/uL (1.20-3.40); #Monocytes 0.6 thou/uL (0.11-0.59); #Neutrophils 5.7 thou/uL (1.40-6.50); %Basophils 0.6 % (0.0-1.0); %Eosinophils 1.5 % (0.0-10.0); %Lymphocytes 26.1 % (21.0-51.0); %Monocytes 7.3 % (0.0-10.0); %Neutrophils 64.6 % (42.0-75.0); Hemoglobin 9.4 g/dL (14.0-18.0); Mean Corpuscular HGB CONC 32.6 g/dL (32.0-36.0); Mean Corpuscular Hemoglobin 30.2 pg (27.0-31.0); Mean Corpuscular Volume 92.5 fL (78.0-98.0); Mean Platelet Volume 6.8 fL (7.4-10.4); Platelet Count 471 thou/uL (130-400); RBC Distribution Width 13.3 % (11.5-14.5); Red Blood Cell (RBC) Count 3.12 mill/uL (4.70-6.10); White Blood Cell (WBC) Count 8.8 thou/uL (4.8-10.8)
[2018-02-11 12:13] LABS: Pathc Cast-AUWi Flag 2.26 (0-2.49); RBC/HPF GREATER THAN 50-TNTC HPF (0-3); Squamous Epithelial 0-3 HPF (0-3)
[2018-02-11 12:15] LABS: Yeast-AUWi Flag 57.9 (0-25.0)
[2018-02-11 12:23] LABS: ALT (SGPT) 10 U/L (8-55); AST (SGOT) 12 U/L (5-34); Albumin 3.8 g/dL (3.5-5.0); Alkaline Phosphatase 141 U/L (40-150); Anion Gap 16 mmol/L (10-20); BUN (Urea Nitrogen) 17 mg/dL (8.4-25.7); Bilirubin, Total 0.3 mg/dL (0.2-1.2); Calc. Creatinine Clearance 0 mL/min (70-130); Calcium 11.2 mg/dL (7.8-10.44); Carbon Dioxide 20 mmol/L (22-29); Chloride 106 mmol/L (98-107); Estimated GFR-MDRD 66; Glucose 104 mg/dL (70-105); Potassium 5.1 mmol/L (3.5-5.1); Protein, Total 7.8 g/dL (6.0-8.3); Sodium 137 mmol/L (136-145)
[2018-02-11 12:27] LABS: Bacteria/HPF 2+ HPF (None Seen); Hyaline Casts/LPF NONE SEEN LPF (0-3 Hyaline); Yeast-All Forms None Seen HPF (None Seen)
[2018-02-11] MEDS ORDERED: cefTRIAXone\\ROCEPHIN 1 GM VIAL ONE (12:32)
[2018-02-11] MEDS ORDERED: Acetaminophen 325 MG TAB PO PRN (13:23)
[2018-02-11] MEDS ORDERED: Senokot S 8.6-50 MG TAB PO PRN (13:23)
[2018-02-11] MEDS ORDERED: HYDROcodone/Acetaminophen 7.5/325 mg Tablet PO PRN (13:23)
--- NOTE | 2018-02-11 13:32 | PDOC.EVN ---
Event Note - Event Note Event Note: H&P Dictated [id number]
[2018-02-11 16:24] VITALS: BMI 35.7
[2018-02-11] MEDS: Baclofen 10 MG TAB PO SCH ×2 (18:18→20:55)
--- NOTE | 2018-02-11 19:41 | HP ---
CHIEF COMPLAINT: Altered mental status. HISTORY OF PRESENT ILLNESS: This is a 52-year-old male, who had a recent thoracic surgery performed at outpatient hospital and was discharged to a rehab. The patient while at rehab was functioning well with no complaints. Apparently, had some altered mental status this morning. However, upon further questioning, the patient states that he may have been given twice the dosage of his pain medications along with skeletal muscle relaxants. The patient was given here on transportation from the outside facility, Narcan and had improvement in his mental status. The patient currently is alert and oriented x3 during interview and states that he probably an adverse reaction to his medications. The patient on CT scan findings did have a finding noting stroke versus mass type lesion in the right cerebellar hemisphere. The patient currently states he feels well and is willing to do another CT scan. However, states that he does not want do an MRI given that he has metal in his body. The patient is also demanding that he has to be able to talk to Neurosurgery Team. The patient otherwise denies any nausea, vomiting, diarrhea, constipation, chest pain, fevers, chills, or shortness of breath. Does admit to having blood clots in his bladder with a history of blood clots where he had a suprapubic catheter as well as surgery done according to him, but he is unable to explain exactly what type of surgeries were done. Admits to describing surgical intervention, which is similar to that of a suprapubic catheter. ALLERGIES: NO KNOWN DRUG ALLERGIES. HOME MEDICATIONS: See MAR. PAST MEDICAL HISTORY: Positive for hypertension and severe back pain as well as potential diabetes. SOCIAL HISTORY: Denies any smoking or drinking. FAMILY HISTORY: Unremarkable. REVIEW OF SYSTEMS: 12-point review of systems was performed. Pertinent positives in HPI, otherwise negative. PHYSICAL EXAMINATION: VITAL SIGNS: Blood pressure is 160/88, heart rate of 90, respiratory rate 18, pulse rate of 88. GENERAL: The patient appears in mild distress, speaking very slowly. HEENT: Normocephalic, atraumatic. Pupils equal, round, and reactive to light and accommodation. Extraocular muscles intact. Oral cavity moist and pink. LUNGS: Clear to auscultation bilaterally. CARDIOVASCULAR: Regular rate and rhythm. S1 and S2. No murmur, rubs, or gallops appreciated. ABDOMEN: Positive bowel sounds. Soft, nontender. No fluid wave noted. EXTREMITIES: 2+ peripheral pulses. Trace edema in bilateral lower extremity. NEUROLOGIC: Cranial nerves 2 through 12 intact. The patient's speech appears very slow; however, he is alert and oriented x3. LABORATORY DATA: CBC within normal limits except for hemoglobin of 9.4. Basic metabolic panel; creatinine is slightly elevated at 1.38, lactic acid of 2.8, calcium is 11.2, otherwise normal. Urinalysis indicative of 100 protein, large blood, large leukocyte esterase as well as 2+ bacteria. IMAGING STUDIES: Brain CT scan findings show focal hypodensity in the right cerebellar hemisphere, infarct versus mass. MRI recommended. ASSESSMENT: 1. Altered mental status. 2. Status post . 3. Infarction versus mass on CT scan. 4. Hypoglycemia. 5. Hypertension. PLAN: 1. At this point in time, the patient is demanding Neurosurgery intervention. We will consult Neurosurgery. 2. We will also check A1c. The patient states that he does not want to have recurrent Accu-Cheks done and states that he is not a diabetic. Blood sugars are at 104, so we will get A1c to corroborate. 3. We will do pain management, repeat CT scan in 48 hours, and start Rocephin for his UTI. The patient is on Eliquis given a history of blood clots, thus we will use that and continue that for DVT prophylaxis. The patient wishes to remains a full code. Further management will change based on workup of results as well as subspecialist evaluation. Case and plan discussed with patient at length. He understands and agrees with this plan. Job ID: [id number]
[2018-02-11] MEDS: Apixaban 5 MG TAB PO SCH (20:55)
[2018-02-11] MEDS: Allopurinol 300 MG TAB PO SCH (20:55)
[2018-02-12 05:18] LABS: #Basophils 0.1 thou/uL (0.0-0.2); #Eosinphils 0.2 thou/uL (0.0-0.7); #Lymphocytes 2.4 thou/uL (1.20-3.40); #Monocytes 0.5 thou/uL (0.11-0.59); #Neutrophils 4.6 thou/uL (1.40-6.50); %Basophils 1.2 % (0.0-1.0); %Lymphocytes 30.8 % (21.0-51.0); %Monocytes 6.7 % (0.0-10.0); %Neutrophils 59.4 % (42.0-75.0); Hemoglobin 8.7 g/dL (14.0-18.0); Mean Corpuscular HGB CONC 32.7 g/dL (32.0-36.0); Mean Corpuscular Hemoglobin 29.3 pg (27.0-31.0); Mean Corpuscular Volume 89.7 fL (78.0-98.0); Mean Platelet Volume 6.7 fL (7.4-10.4); Platelet Count 434 thou/uL (130-400); RBC Distribution Width 13.1 % (11.5-14.5); Red Blood Cell (RBC) Count 2.95 mill/uL (4.70-6.10); White Blood Cell (WBC) Count 7.7 thou/uL (4.8-10.8)
[2018-02-12 05:26] LABS: Anion Gap 13 mmol/L (10-20); BUN (Urea Nitrogen) 15 mg/dL (8.4-25.7); Calc. Creatinine Clearance 116 mL/min (70-130); Carbon Dioxide 23 mmol/L (22-29); Chloride 106 mmol/L (98-107); Estimated GFR-MDRD 66; Glucose 99 mg/dL (70-105); Potassium 4.3 mmol/L (3.5-5.1); Sodium 138 mmol/L (136-145)
[2018-02-12] MEDS ORDERED: Labetalol HCl 100 MG/20 ML VIAL SLOW IVP PRN (07:09)
[2018-02-12] MEDS ORDERED: Loratadine 10 MG TAB PO PRN (07:09)
[2018-02-12] MEDS ORDERED: Sodium Chloride 0.65% Nasal 44 ML BOT EA NARE PRN (07:09)
[2018-02-12] MEDS ORDERED: Calcium Carbonate 500 MG ChewTAB PO PRN (07:09)
[2018-02-12] MEDS ORDERED: Loperamide HCl 2 MG CAP PO PRN (07:09)
[2018-02-12] MEDS ORDERED: Ondansetron PF 4 MG/2 ML Vial IVP PRN (07:09)
[2018-02-12] MEDS ORDERED: Acetaminophen 500 MG TAB PO PRN (07:09)
[2018-02-12] MEDS ORDERED: Ondansetron ODT 4 MG TAB PO PRN (07:09)
[2018-02-12] MEDS ORDERED: Artificial Tears 18 DROP/0.9 ML EA EYE PRN (07:09)
[2018-02-12] MEDS ORDERED: Bisacodyl 10 MG SUPP PR PRN (07:09)
[2018-02-12] MEDS ORDERED: Eucerin (Mineral Oil/Petrolatum,White) 30 gm Jar TOP PRN (07:09)
[2018-02-12] MEDS ORDERED: hydrALAZINE 20 MG/ML VIAL SLOW IVP PRN (07:09)
[2018-02-12] MEDS ORDERED: Diabetic Tussin 200 MG/10 ML UDCUP PO PRN (07:09)
[2018-02-12] MEDS ORDERED: Cepastat Lozenges 1 LOZ PO PRN (07:09)
[2018-02-12] MEDS: Tamsulosin HCl 0.4 MG CAP PO SCH (08:50)
[2018-02-12] MEDS: Apixaban 5 MG TAB PO SCH ×3 (08:50→22:42)
[2018-02-12] MEDS: Baclofen 10 MG TAB PO SCH ×3 (08:50→21:34)
[2018-02-12] MEDS: Sodium Chloride 0.9% 1,000 ML IV SCH ×2 (08:54→15:25)
[2018-02-12 08:58] LABS: Lactic Acid 0.7 mmol/L (0.5-2.2)
[2018-02-12] MEDS ORDERED: Lisinopril 10 MG TAB PO SCH (09:00)
--- NOTE | 2018-02-12 09:36 | PDOC.PN ---
- Subjective Encounter Start Date: 02/12/18 Encounter Start Time: 07:10 -: old records requested/rev Patient seen and examined. No new complaints. No overnight events pt is appears psychotic, he is refusing medical care, he has hallucination, delusion. - Objective Resuscitation Status - Order Detail: 02/11/18 13:23 Resuscitation Status Routine Resuscitation Status: FULL: Full Resuscitation MAR Reviewed: Yes Vital Signs & Weight: Vital Signs (12 hours) Temp Pulse Resp BP Pulse Ox 02/12/18 08:00 97.6 F 93 18 135/78 93 L 02/12/18 00:00 98.1 F 101 H 16 107/56 L 99 Weight Weight 285 lb 14.4 oz I&O: 02/11/18 02/12/18 02/13/18 06:59 06:59 06:59 Intake Total 750 Output Total 2250 1000 Balance -1500 -1000 Result Diagrams: 02/12/18 04:04 02/12/18 04:04 Additional Labs: Accuchecks 02/11/18 11:01 POC Glucose 97 Radiology Reviewed by me: Yes (CT brain reviewed) Phys Exam - Physical Examination Constitutional: NAD HEENT: PERRLA, moist MMs, sclera anicteric Neck: no JVD, supple Respiratory: no wheezing, no rales, no rhonchi Cardiovascular: RRR, no significant murmur, no rub Gastrointestinal: soft, non-tender, no distention, positive bowel sounds padgett+ Musculoskeletal: no edema, pulses present paraplegia Lymphatic: no nodes Deviation from normal: psychotic Skin: no rash, normal turgor Dx/Plan (1) UTI (urinary tract infection) due to urinary indwelling catheter Code(s): T83.511A - I/I REACT D/T INDWELLING URETHRAL CATHETER, INIT; N39.0 - URINARY TRACT INFECTION, SITE NOT SPECIFIED Status: Chronic (2) Encephalopathy acute Code(s): G93.40 - ENCEPHALOPATHY, UNSPECIFIED Status: Acute Comment: due to narcotic overdose, now resolved, baseline (3) Abnormal CT of brain Code(s): R90.89 - H ABNORMAL FINDINGS ON DIAGNOSTIC IMAGING OF CNSL Status: Acute Comment: CEREBELLAR MASS VS INFRACTION (4) Anxiety and depression Code(s): F41.9 - ANXIETY DISORDER, UNSPECIFIED; F32.9 - MAJOR DEPRESSIVE DISORDER, SINGLE EPISODE, UNSPECIFIED Status: Chronic (5) Chronic anticoagulation Code(s): Z79.01 - LONGTERM (CURRENT) USE OF ANTICOAGULANTS Status: Chronic (6) DM type 2 (diabetes mellitus, type 2) Status: Chronic Comment: (7) Diabetes type 2, controlled Code(s): E11.9 - TYPE 2 DIABETES MELLITUS WITHOUT COMPLICATIONS Status: Chronic (8) Gout Code(s): M10.9 - GOUT, UNSPECIFIED Status: Chronic (9) HTN (hypertension) Code(s): I10 - ESSENTIAL (PRIMARY) HYPERTENSION Status: Chronic Comment: (10) History of pulmonary embolism Code(s): Z86.711 - PERSONAL HISTORY OF PULMONARY EMBOLISM Status: Chronic (11) Obesity (BMI 30-39.9) Code(s): E66.9 - OBESITY, UNSPECIFIED Status: Chronic (12) Paraplegia Code(s): G82.20 - PARAPLEGIA, UNSPECIFIED Status: Chronic (13) Bipolar disorder Code(s): F31.9 - BIPOLAR DISORDER, UNSPECIFIED Status: Chronic - Plan cont current plan of care, continue antibiotics * needs MRI to better evaluate CT finding if pt agrees * add levaquin and continue rocephin * follow urine culture * medication reviewed as below * symptomatic treatment * OK to transfer to medical * home medication reconciled. Review of Systems - Review of Systems ENT: negative: Ear Pain, Ear Discharge, Nose Pain, Nose Discharge, Nose Congestion, Mouth Pain, Mouth Swelling, Throat Pain, Throat Swelling, Other Respiratory: negative: Cough, Dry, Shortness of Breath, Hemoptysis, SOB with Excertion, Pleuritic Pain, Sputum, Wheezing Cardiovascular: negative: chest pain, palpitations, orthopnea, paroxysmal nocturnal dyspnea, edema, light headedness, other Gastrointestinal: negative: Nausea, Vomiting, Abdominal Pain, Diarrhea, Constipation, Melena, Hematochezia, Other Genitourinary: negative: Dysuria, Frequency, Incontinence, Hematuria, Retention , Other Musculoskeletal: negative: Neck Pain, Shoulder Pain, Arm Pain, Back Pain, Hand Pain, Leg Pain, Foot Pain, Other Skin: negative: Rash, Lesions, Torin, Bruising, Other Other: not reliable due to his psychiatry problem - Medications/Allergies Allergies/Adverse Reactions: Allergies Allergy/AdvReac Type Severity Reaction Status Date / Time No Known Allergies Allergy Verified 01/18/18 14:09 Medications: Current Medications Acetaminophen (Tylenol) 500 mg PO Q6H PRN PRN Reason: Mild Pain (1-3) Hydrocodone Bitart/Acetaminophen ([place] 5/325) 1 tab PO Q4H PRN PRN Reason: Moderate Pain (4-6) Allopurinol (Zyloprim) 300 mg PO HS [facility] Last Admin: 02/11/18 20:55 Dose: Not Given Apixaban (Eliquis) 5 mg PO BID [facility] Last Admin: 02/12/18 08:50 Dose: Not Given Artificial Tears (Tears Naturale) 2 drop EA EYE PRN PRN PRN Reason: Dry Eyes Baclofen (Lioresal) 5 mg PO TID [facility] Last Admin: 02/12/18 08:50 Dose: Not Given Bisacodyl (Dulcolax) 10 mg DC DAILYPRN PRN PRN Reason: Constipation Calcium Carbonate (Tums) 1,000 mg PO Q4H PRN PRN Reason: Heartburn or Indigestion Guaifenesin (Robitussin Sf) 200 mg PO Q4H PRN PRN Reason: Cough Hydralazine HCl (Apresoline) 10 mg SLOW IVP Q4H PRN PRN Reason: SBP > 180 and HR < 70 Ceftriaxone Sodium 1 gm/ (Sodium Chloride) 100 mls @ 200 mls/hr IVPB Q24HR [facility] Sodium Chloride (Normal Saline 0.9%) 1,000 mls @ 100 mls/hr IV .Q10H [facility] Last Admin: 02/12/18 08:54 Dose: 1,000 mls Levofloxacin 500 mg/ Device 100 mls @ 100 mls/hr IVPB 0800 [facility] Last Admin: 02/12/18 09:05 Dose: 100 mls Labetalol HCl (Normodyne) 20 mg SLOW IVP Q4H PRN PRN Reason: SBP > 180 and HR >/= 70 Loperamide HCl (Imodium) 2 mg PO PRN PRN PRN Reason: Diarrhea/Loose Stools Loratadine (Claritin) 10 mg PO DAILYPRN PRN PRN Reason: Sinus Symptoms Mineral Oil/White Petrolatum (Eucerin Cream) 0 gm TOP BIDPRN PRN PRN Reason: Dry Skin Ondansetron HCl (Zofran Odt) 4 mg PO Q6H PRN PRN Reason: Nausea/Vomiting Ondansetron HCl (Zofran) 4 mg IVP Q6H PRN PRN Reason: Nausea/Vomiting Senna/Docusate Sodium (Senokot S) 2 tab PO BID PRN PRN Reason: Constipation Sodium Chloride (Flush - Normal Saline) 10 ml IVF PRN PRN PRN Reason: Saline Flush Sodium Chloride ([place] Nasal [place] 0.65%) 0 ml EA NARE QIDPRN PRN PRN Reason: Nasal Congestion Tamsulosin HCl (Flomax) 0.4 mg PO DAILY [facility] Last Admin: 02/12/18 08:50 Dose: Not Given Throat Lozenges (Cepastat Lozenges) 1 yuval PO Q2H PRN PRN Reason: Sore Throat
[2018-02-12] MEDS: cefTRIAXone\\ROCEPHIN 1 GM in Sodium Chloride 0.9% 100 ML IVPB SCH (12:03)
[2018-02-12] MEDS: Allopurinol 300 MG TAB PO SCH (21:34)
[2018-02-12] MEDS: HYDROcodone/Acetaminophen 5/325 mg Tablet PO PRN (22:42)
[2018-02-13] MEDS: Baclofen 10 MG TAB PO SCH ×4 (02:19→20:11)
[2018-02-13] MEDS: Sodium Chloride 0.9% 1,000 ML IV SCH (03:43)
[2018-02-13 05:29] LABS: #Basophils 0.1 thou/uL (0.0-0.2); #Eosinphils 0.1 thou/uL (0.0-0.7); #Monocytes 0.5 thou/uL (0.11-0.59); #Neutrophils 3.6 thou/uL (1.40-6.50); %Basophils 1.2 % (0.0-1.0); %Eosinophils 1.3 % (0.0-10.0); %Monocytes 7.7 % (0.0-10.0); %Neutrophils 57.8 % (42.0-75.0); Hemoglobin 8.4 g/dL (14.0-18.0); Mean Corpuscular HGB CONC 33.5 g/dL (32.0-36.0); Mean Corpuscular Hemoglobin 29.8 pg (27.0-31.0); Mean Platelet Volume 6.6 fL (7.4-10.4); Platelet Count 394 thou/uL (130-400); Red Blood Cell (RBC) Count 2.82 mill/uL (4.70-6.10); White Blood Cell (WBC) Count 6.2 thou/uL (4.8-10.8)
[2018-02-13 05:53] LABS: Anion Gap 11 mmol/L (10-20); BUN (Urea Nitrogen) 14 mg/dL (8.4-25.7); Calc. Creatinine Clearance 113 mL/min (70-130); Calcium 10.7 mg/dL (7.8-10.44); Carbon Dioxide 23 mmol/L (22-29); Chloride 105 mmol/L (98-107); Estimated GFR-MDRD 65; Glucose 103 mg/dL (70-105); Potassium 3.9 mmol/L (3.5-5.1); Sodium 135 mmol/L (136-145)
[2018-02-13] MEDS: Tamsulosin HCl 0.4 MG CAP PO SCH (08:51)
[2018-02-13] MEDS: Apixaban 5 MG TAB PO SCH ×2 (08:51→20:12)
[2018-02-13] MEDS: HYDROcodone/Acetaminophen 5/325 mg Tablet PO PRN ×2 (09:01→18:17)
[2018-02-13 09:36] LABS: Magnesium 1.5 mg/dL (1.6-2.6); Phosphorus 2.1 mg/dL (2.3-4.7)
--- NOTE | 2018-02-13 09:47 | PDOC.PN ---
- Subjective Encounter Start Date: 02/13/18 Encounter Start Time: 07:15 -: old records requested/rev Patient seen and examined. No new complaints. No overnight events - Objective Resuscitation Status - Order Detail: 02/11/18 13:23 Resuscitation Status Routine Resuscitation Status: FULL: Full Resuscitation MAR Reviewed: Yes Vital Signs & Weight: Vital Signs (12 hours) Temp Pulse Resp BP Pulse Ox 02/13/18 08:00 98.0 F 96 16 114/77 100 Weight Weight 285 lb 14.4 oz I&O: 02/12/18 02/13/18 02/14/18 06:59 06:59 06:59 Intake Total 750 Output Total 2250 1600 Balance -1500 -1600 Result Diagrams: 02/13/18 05:10 02/13/18 05:10 Phys Exam - Physical Examination Constitutional: NAD HEENT: PERRLA, moist MMs, sclera anicteric Neck: no JVD, supple Respiratory: no wheezing, no rales, no rhonchi Cardiovascular: RRR, no significant murmur, no rub Gastrointestinal: soft, non-tender, no distention, positive bowel sounds Musculoskeletal: no edema, pulses present paraplegia Lymphatic: no nodes Psychiatric: normal affect Skin: no rash, normal turgor Dx/Plan (1) UTI (urinary tract infection) due to urinary indwelling catheter Code(s): T83.511A - I/I REACT D/T INDWELLING URETHRAL CATHETER, INIT; N39.0 - URINARY TRACT INFECTION, SITE NOT SPECIFIED Status: Chronic (2) Encephalopathy acute Code(s): G93.40 - ENCEPHALOPATHY, UNSPECIFIED Status: Acute Comment: due to narcotic overdose, now resolved, baseline (3) Abnormal CT of brain Code(s): R90.89 - [facility] ABNORMAL FINDINGS ON DIAGNOSTIC IMAGING OF CNSL Status: Acute Comment: CEREBELLAR MASS VS INFRACTION (4) Anxiety and depression Code(s): F41.9 - ANXIETY DISORDER, UNSPECIFIED; F32.9 - MAJOR DEPRESSIVE DISORDER, SINGLE EPISODE, UNSPECIFIED Status: Chronic (5) Chronic anticoagulation Code(s): Z79.01 - ALF (CURRENT) USE OF ANTICOAGULANTS Status: Chronic (6) DM type 2 (diabetes mellitus, type 2) Status: Chronic Comment: (7) Diabetes type 2, controlled Code(s): E11.9 - TYPE 2 DIABETES MELLITUS WITHOUT COMPLICATIONS Status: Chronic (8) Gout Code(s): M10.9 - GOUT, UNSPECIFIED Status: Chronic (9) HTN (hypertension) Code(s): I10 - ESSENTIAL (PRIMARY) HYPERTENSION Status: Chronic Comment: (10) History of pulmonary embolism Code(s): Z86.711 - PERSONAL HISTORY OF PULMONARY EMBOLISM Status: Chronic (11) Obesity (BMI 30-39.9) Code(s): E66.9 - OBESITY, UNSPECIFIED Status: Chronic (12) Paraplegia Code(s): G82.20 - PARAPLEGIA, UNSPECIFIED Status: Chronic (13) Bipolar disorder Code(s): F31.9 - BIPOLAR DISORDER, UNSPECIFIED Status: Chronic (14) Hypercalcemia Code(s): E83.52 - HYPERCALCEMIA Status: Acute (15) Hyperparathyroidism Code(s): E21.3 - HYPERPARATHYROIDISM, UNSPECIFIED Status: Acute (16) Hypomagnesemia Code(s): E83.42 - HYPOMAGNESEMIA Status: Acute (17) Hypophosphatemia Code(s): E83.39 - OTHER DISORDERS OF PHOSPHORUS METABOLISM Status: Acute - Plan cont current plan of care, continue antibiotics, PT/OT, social services designee * replace magnesium * replace sodium phosphate * give phosnac * continue IV antibiotics * DC IVF * repeat labs tomorrow * medication reviewed as below * symptomatic treatment * will need placement. Review of Systems - Review of Systems ENT: negative: Ear Pain, Ear Discharge, Nose Pain, Nose Discharge, Nose Congestion, Mouth Pain, Mouth Swelling, Throat Pain, Throat Swelling, Other Respiratory: negative: Cough, Dry, Shortness of Breath, Hemoptysis, SOB with Excertion, Pleuritic Pain, Sputum, Wheezing Cardiovascular: negative: chest pain, palpitations, orthopnea, paroxysmal nocturnal dyspnea, edema, light headedness, other Gastrointestinal: negative: Nausea, Vomiting, Abdominal Pain, Diarrhea, Constipation, Melena, Hematochezia, Other Genitourinary: negative: Dysuria, Frequency, Incontinence, Hematuria, Retention , Other Musculoskeletal: negative: Neck Pain, Shoulder Pain, Arm Pain, Back Pain, Hand Pain, Leg Pain, Foot Pain, Other Skin: negative: Rash, Lesions, Torin, Bruising, Other - Medications/Allergies Allergies/Adverse Reactions: Allergies Allergy/AdvReac Type Severity Reaction Status Date / Time No Known Allergies Allergy Verified 01/18/18 14:09 Medications: Current Medications Acetaminophen (Tylenol) 500 mg PO Q6H PRN PRN Reason: Mild Pain (1-3) Hydrocodone Bitart/Acetaminophen ([place] 5/325) 1 tab PO Q4H PRN PRN Reason: Moderate Pain (4-6) Last Admin: 02/13/18 09:01 Dose: 1 tab Allopurinol (Zyloprim) 300 mg PO HS [facility] Last Admin: 02/12/18 21:34 Dose: Not Given Apixaban (Eliquis) 5 mg PO BID [facility] Last Admin: 02/13/18 08:51 Dose: 5 mg Artificial Tears (Tears Naturale) 2 drop EA EYE PRN PRN PRN Reason: Dry Eyes Baclofen (Lioresal) 5 mg PO TID [facility] Last Admin: 02/13/18 08:51 Dose: 5 mg Bisacodyl (Dulcolax) 10 mg [place] DAILYPRN PRN PRN Reason: Constipation Calcium Carbonate (Tums) 1,000 mg PO Q4H PRN PRN Reason: Heartburn or Indigestion Guaifenesin (Robitussin Sf) 200 mg PO Q4H PRN PRN Reason: Cough Hydralazine HCl (Apresoline) 10 mg SLOW IVP Q4H PRN PRN Reason: SBP > 180 and HR < 70 Ceftriaxone Sodium 1 gm/ (Sodium Chloride) 100 mls @ 200 mls/hr IVPB Q24HR [facility] Last Admin: 02/12/18 12:03 Dose: Not Given Sodium Chloride (Normal Saline 0.9%) 1,000 mls @ 100 mls/hr IV .Q10H [facility] Last Admin: 02/13/18 03:43 Dose: 1,000 mls Levofloxacin 500 mg/ Device 100 mls @ 100 mls/hr IVPB 0800 [facility] Last Admin: 02/13/18 08:50 Dose: 100 mls Magnesium Sulfate 3 gm/ Sodium (Chloride) 106 mls @ 53 mls/hr IVPB 1000 [facility] Stop: 02/13/18 11:59 Sodium Phosphate 30 mmol/ (Sodium Chloride) 260 mls @ 65 mls/hr IVPB 1100 [facility] Stop: 02/13/18 14:59 Labetalol HCl (Normodyne) 20 mg SLOW IVP Q4H PRN PRN Reason: SBP > 180 and HR >/= 70 Loperamide HCl (Imodium) 2 mg PO PRN PRN PRN Reason: Diarrhea/Loose Stools Loratadine (Claritin) 10 mg PO DAILYPRN PRN PRN Reason: Sinus Symptoms Mineral Oil/White Petrolatum (Eucerin Cream) 0 gm TOP BIDPRN PRN PRN Reason: Dry Skin Miscellaneous Medication (Phos-Nak) 1 pkt PO NOW [facility] Stop: 02/13/18 12:00 Ondansetron HCl (Zofran Odt) 4 mg PO Q6H PRN PRN Reason: Nausea/Vomiting Last Admin: 02/13/18 03:42 Dose: 4 mg Ondansetron HCl (Zofran) 4 mg IVP Q6H PRN PRN Reason: Nausea/Vomiting Last Admin: 02/13/18 04:44 Dose: 4 mg Senna/Docusate Sodium (Senokot S) 2 tab PO BID PRN PRN Reason: Constipation Sodium Chloride (Flush - Normal Saline) 10 ml IVF PRN PRN PRN Reason: Saline Flush Sodium Chloride ([place] [employer] 0.65%) 0 ml EA NARE QIDPRN PRN PRN Reason: Nasal Congestion Tamsulosin HCl (Flomax) 0.4 mg PO DAILY [facility] Last Admin: 02/13/18 08:51 Dose: 0.4 mg Throat Lozenges (Cepastat Lozenges) 1 yuval PO Q2H PRN PRN Reason: Sore Throat
[2018-02-13] MEDS: Magnesium Sulfate 3 GM in Sodium Chloride 0.9% 100 ML IVPB SCH ×2 (10:43→10:46)
[2018-02-13] MEDS ORDERED: Sodium Phosphate 30 MMOL in Sodium Chloride 0.9% 250 ML 250 ML IVPB SCH (11:00)
[2018-02-13] MEDS: cefTRIAXone\\ROCEPHIN 1 GM in Sodium Chloride 0.9% 100 ML IVPB SCH (13:04)
[2018-02-13] MEDS: Allopurinol 300 MG TAB PO SCH (20:12)
[2018-02-14] MEDS: HYDROcodone/Acetaminophen 5/325 mg Tablet PO PRN ×3 (04:27→18:20)
[2018-02-14 07:26] LABS: Anion Gap 12 mmol/L (10-20); BUN (Urea Nitrogen) 14 mg/dL (8.4-25.7); Calc. Creatinine Clearance 115 mL/min (70-130); Calcium 10.9 mg/dL (7.8-10.44); Carbon Dioxide 22 mmol/L (22-29); Chloride 106 mmol/L (98-107); Estimated GFR-MDRD 66; Glucose 97 mg/dL (70-105); Magnesium 1.4 mg/dL (1.6-2.6); Phosphorus 2.5 mg/dL (2.3-4.7); Sodium 136 mmol/L (136-145)
[2018-02-14] MEDS: Apixaban 5 MG TAB PO SCH ×2 (08:30→20:34)
[2018-02-14] MEDS: Baclofen 10 MG TAB PO SCH ×3 (08:30→20:34)
[2018-02-14] MEDS: Tamsulosin HCl 0.4 MG CAP PO SCH (08:31)
[2018-02-14] MEDS ORDERED: Magnesium Sulfate 3 GM in Sodium Chloride 0.9% 100 ML IVPB SCH (09:00)
--- NOTE | 2018-02-14 10:07 | PDOC.PN ---
- Subjective Encounter Start Date: 02/14/18 Encounter Start Time: 08:40 Patient seen and examined. No new complaints. No overnight events - Objective Resuscitation Status - Order Detail: 02/11/18 13:23 Resuscitation Status Routine Resuscitation Status: FULL: Full Resuscitation MAR Reviewed: Yes Vital Signs & Weight: Vital Signs (12 hours) Temp Pulse Resp BP Pulse Ox 02/14/18 07:06 98.2 F 83 16 112/76 100 02/14/18 04:00 98.3 F 95 24 H 119/73 98 02/13/18 23:55 98.7 F 88 20 102/66 99 Weight Weight 285 lb 14.4 oz I&O: 02/13/18 02/14/18 02/15/18 06:59 06:59 06:59 Intake Total 1510 Output Total 1600 1900 Balance -1600 -390 Result Diagrams: 02/13/18 05:10 02/14/18 06:45 Phys Exam - Physical Examination Constitutional: NAD HEENT: PERRLA, moist MMs, sclera anicteric Neck: no JVD, supple Respiratory: no wheezing, no rales, no rhonchi Cardiovascular: RRR, no significant murmur, no rub Gastrointestinal: soft, non-tender, no distention, positive bowel sounds padgett+ Musculoskeletal: no edema, pulses present paraplegia Lymphatic: no nodes Psychiatric: normal affect Skin: no rash, normal turgor Dx/Plan (1) UTI (urinary tract infection) due to urinary indwelling catheter Code(s): T83.511A - I/I REACT D/T INDWELLING URETHRAL CATHETER, INIT; N39.0 - URINARY TRACT INFECTION, SITE NOT SPECIFIED Status: Chronic (2) Encephalopathy acute Code(s): G93.40 - ENCEPHALOPATHY, UNSPECIFIED Status: Acute Comment: due to narcotic overdose, now resolved, baseline (3) Abnormal CT of brain Code(s): R90.89 - OTH ABNORMAL FINDINGS ON DIAGNOSTIC IMAGING OF CNSL Status: Acute Comment: CEREBELLAR MASS VS INFRACTION (4) Anxiety and depression Code(s): F41.9 - ANXIETY DISORDER, UNSPECIFIED; F32.9 - MAJOR DEPRESSIVE DISORDER, SINGLE EPISODE, UNSPECIFIED Status: Chronic (5) Chronic anticoagulation Code(s): Z79.01 - [facility] (CURRENT) USE OF ANTICOAGULANTS Status: Chronic (6) DM type 2 (diabetes mellitus, type 2) Status: Chronic Comment: (7) Diabetes type 2, controlled Code(s): E11.9 - TYPE 2 DIABETES MELLITUS WITHOUT COMPLICATIONS Status: Chronic (8) Gout Code(s): M10.9 - GOUT, UNSPECIFIED Status: Chronic (9) HTN (hypertension) Code(s): I10 - ESSENTIAL (PRIMARY) HYPERTENSION Status: Chronic Comment: (10) History of pulmonary embolism Code(s): Z86.711 - PERSONAL HISTORY OF PULMONARY EMBOLISM Status: Chronic (11) Obesity (BMI 30-39.9) Code(s): E66.9 - OBESITY, UNSPECIFIED Status: Chronic (12) Paraplegia Code(s): G82.20 - PARAPLEGIA, UNSPECIFIED Status: Chronic (13) Bipolar disorder Code(s): F31.9 - BIPOLAR DISORDER, UNSPECIFIED Status: Chronic (14) Hypercalcemia Code(s): E83.52 - HYPERCALCEMIA Status: Acute (15) Hyperparathyroidism Code(s): E21.3 - HYPERPARATHYROIDISM, UNSPECIFIED Status: Acute (16) Hypomagnesemia Code(s): E83.42 - HYPOMAGNESEMIA Status: Acute (17) Hypophosphatemia Code(s): E83.39 - OTHER DISORDERS OF PHOSPHORUS METABOLISM Status: Acute (18) Vitamin D deficiency Code(s): E55.9 - VITAMIN D DEFICIENCY, UNSPECIFIED Status: Acute - Plan cont current plan of care, continue antibiotics * replace magnesium * continue rocephin and levaquin * medication reviewed as below * symptomatic treatment * he still refuses MRI * discharge planning. * air mattress Review of Systems - Review of Systems Eyes: negative: Pain, Vision Change, Conjunctivae Inflammation, Eyelid Inflammation, Redness, Other ENT: negative: Ear Pain, Ear Discharge, Nose Pain, Nose Discharge, Nose Congestion, Mouth Pain, Mouth Swelling, Throat Pain, Throat Swelling, Other Respiratory: negative: Cough, Dry, Shortness of Breath, Hemoptysis, SOB with Excertion, Pleuritic Pain, Sputum, Wheezing Cardiovascular: negative: chest pain, palpitations, orthopnea, paroxysmal nocturnal dyspnea, edema, light headedness, other Gastrointestinal: negative: Nausea, Vomiting, Abdominal Pain, Diarrhea, Constipation, Melena, Hematochezia, Other Genitourinary: negative: Dysuria, Frequency, Incontinence, Hematuria, Retention , Other Musculoskeletal: negative: Neck Pain, Shoulder Pain, Arm Pain, Back Pain, Hand Pain, Leg Pain, Foot Pain, Other Skin: negative: Rash, Lesions, Torin, Bruising, Other - Medications/Allergies Allergies/Adverse Reactions: Allergies Allergy/AdvReac Type Severity Reaction Status Date / Time No Known Allergies Allergy Verified 01/18/18 14:09 Medications: Current Medications Acetaminophen (Tylenol) 500 mg PO Q6H PRN PRN Reason: Mild Pain (1-3) Hydrocodone Bitart/Acetaminophen ([place] 5/325) 1 tab PO Q4H PRN PRN Reason: Moderate Pain (4-6) Last Admin: 02/14/18 04:27 Dose: 1 tab Allopurinol (Zyloprim) 300 mg PO [facility] Last Admin: 02/13/18 20:12 Dose: 300 mg Apixaban (Eliquis) 5 mg PO BID [facility] Last Admin: 02/14/18 08:30 Dose: 5 mg Artificial Tears (Tears Naturale) 2 drop EA EYE PRN PRN PRN Reason: Dry Eyes Baclofen (Lioresal) 5 mg PO TID [facility] Last Admin: 02/14/18 08:30 Dose: 5 mg Bisacodyl (Dulcolax) 10 mg [place] DAILYPRN PRN PRN Reason: Constipation Calcium Carbonate (Tums) 1,000 mg PO Q4H PRN PRN Reason: Heartburn or Indigestion Cholecalciferol (Vitamin D3) 5,000 units PO [facility] Last Admin: 02/13/18 20:18 Dose: Not Given Guaifenesin (Robitussin Sf) 200 mg PO Q4H PRN PRN Reason: Cough Hydralazine HCl (Apresoline) 10 mg SLOW IVP Q4H PRN PRN Reason: SBP > 180 and HR < 70 Ceftriaxone Sodium 1 gm/ (Sodium Chloride) 100 mls @ 200 mls/hr IVPB Q24HR [facility] Last Admin: 02/13/18 13:04 Dose: 100 mls Levofloxacin 500 mg/ Device 100 mls @ 100 mls/hr IVPB 0800 [facility] Last Admin: 02/14/18 08:30 Dose: 100 mls Magnesium Sulfate 3 gm/ Sodium (Chloride) 106 mls @ 100 mls/hr IVPB 0900 [facility] Stop: 02/14/18 11:00 Labetalol HCl (Normodyne) 20 mg SLOW IVP Q4H PRN PRN Reason: SBP > 180 and HR >/= 70 Loperamide HCl (Imodium) 2 mg PO PRN PRN PRN Reason: Diarrhea/Loose Stools Loratadine (Claritin) 10 mg PO DAILYPRN PRN PRN Reason: Sinus Symptoms Mineral Oil/White Petrolatum (Eucerin Cream) 0 gm TOP BIDPRN PRN PRN Reason: Dry Skin Ondansetron HCl (Zofran Odt) 4 mg PO Q6H PRN PRN Reason: Nausea/Vomiting Last Admin: 02/13/18 03:42 Dose: 4 mg Ondansetron HCl (Zofran) 4 mg IVP Q6H PRN PRN Reason: Nausea/Vomiting Last Admin: 02/13/18 04:44 Dose: 4 mg Senna/Docusate Sodium (Senokot S) 2 tab PO BID PRN PRN Reason: Constipation Sodium Chloride (Flush - Normal Saline) 10 ml IVF PRN PRN PRN Reason: Saline Flush Last Admin: 02/14/18 08:30 Dose: 10 ml Sodium Chloride ([place] Nasal [place] 0.65%) 0 ml EA NARE QIDPRN PRN PRN Reason: Nasal Congestion Tamsulosin HCl (Flomax) 0.4 mg PO DAILY [facility] Last Admin: 02/14/18 08:31 Dose: 0.4 mg Throat Lozenges (Cepastat Lozenges) 1 yuval PO Q2H PRN PRN Reason: Sore Throat
[2018-02-14] MEDS: cefTRIAXone\\ROCEPHIN 1 GM in Sodium Chloride 0.9% 100 ML IVPB SCH (13:07)
[2018-02-14] MEDS: Allopurinol 300 MG TAB PO SCH (20:34)
[2018-02-15] MEDS: HYDROcodone/Acetaminophen 5/325 mg Tablet PO PRN (04:09)
[2018-02-15] MEDS: Baclofen 10 MG TAB PO SCH ×3 (08:45→20:35)
[2018-02-15] MEDS: Tamsulosin HCl 0.4 MG CAP PO SCH (08:45)
[2018-02-15] MEDS: Apixaban 5 MG TAB PO SCH ×2 (08:45→20:36)
--- NOTE | 2018-02-15 12:54 | PDOC.PN ---
- Subjective Encounter Start Date: 02/15/18 Encounter Start Time: 08:15 Patient seen and examined. No new complaints. No overnight events - Objective Resuscitation Status - Order Detail: 02/11/18 13:23 Resuscitation Status Routine Resuscitation Status: FULL: Full Resuscitation MAR Reviewed: Yes Vital Signs & Weight: Vital Signs (12 hours) Temp Pulse Resp BP Pulse Ox 02/15/18 11:19 97.7 F 86 16 100/71 100 02/15/18 07:38 97.9 F 89 16 108/75 100 02/15/18 04:00 97.7 F 93 18 101/68 97 Weight Admit Weight 285 lb 14.4 oz Weight 285 lb 14.4 oz I&O: 02/14/18 02/15/18 02/16/18 06:59 06:59 06:59 Intake Total 4330 Output Total 3775 Balance 555 Result Diagrams: 02/13/18 05:10 02/14/18 06:45 Phys Exam - Physical Examination Constitutional: NAD HEENT: PERRLA, moist MMs, sclera anicteric Neck: no JVD, supple Respiratory: no wheezing, no rales, no rhonchi Cardiovascular: RRR, no significant murmur, no rub Gastrointestinal: soft, non-tender, no distention, positive bowel sounds Musculoskeletal: no edema, pulses present padgett+ paraplegia Lymphatic: no nodes Psychiatric: normal affect Skin: no rash, normal turgor Dx/Plan (1) UTI (urinary tract infection) due to urinary indwelling catheter Code(s): T83.511A - I/I REACT D/T INDWELLING URETHRAL CATHETER, INIT; N39.0 - URINARY TRACT INFECTION, SITE NOT SPECIFIED Status: Chronic (2) Encephalopathy acute Code(s): G93.40 - ENCEPHALOPATHY, UNSPECIFIED Status: Acute Comment: due to narcotic overdose, now resolved, baseline (3) Abnormal CT of brain Code(s): R90.89 - OTH ABNORMAL FINDINGS ON DIAGNOSTIC IMAGING OF CNSL Status: Acute Comment: CEREBELLAR MASS VS INFRACTION (4) Anxiety and depression Code(s): F41.9 - ANXIETY DISORDER, UNSPECIFIED; F32.9 - MAJOR DEPRESSIVE DISORDER, SINGLE EPISODE, UNSPECIFIED Status: Chronic (5) Chronic anticoagulation Code(s): Z79.01 - [employer] (CURRENT) USE OF ANTICOAGULANTS Status: Chronic (6) DM type 2 (diabetes mellitus, type 2) Status: Chronic Comment: (7) Diabetes type 2, controlled Code(s): E11.9 - TYPE 2 DIABETES MELLITUS WITHOUT COMPLICATIONS Status: Chronic (8) Gout Code(s): M10.9 - GOUT, UNSPECIFIED Status: Chronic (9) HTN (hypertension) Code(s): I10 - ESSENTIAL (PRIMARY) HYPERTENSION Status: Chronic Comment: (10) History of pulmonary embolism Code(s): Z86.711 - PERSONAL HISTORY OF PULMONARY EMBOLISM Status: Chronic (11) Obesity (BMI 30-39.9) Code(s): E66.9 - OBESITY, UNSPECIFIED Status: Chronic (12) Paraplegia Code(s): G82.20 - PARAPLEGIA, UNSPECIFIED Status: Chronic (13) Bipolar disorder Code(s): F31.9 - BIPOLAR DISORDER, UNSPECIFIED Status: Chronic (14) Hypercalcemia Code(s): E83.52 - HYPERCALCEMIA Status: Acute (15) Hyperparathyroidism Code(s): E21.3 - HYPERPARATHYROIDISM, UNSPECIFIED Status: Acute (16) Hypomagnesemia Code(s): E83.42 - HYPOMAGNESEMIA Status: Acute (17) Hypophosphatemia Code(s): E83.39 - OTHER DISORDERS OF PHOSPHORUS METABOLISM Status: Acute - Plan cont current plan of care, continue antibiotics, PT/OT, social research assistant * medication reviewed as below * symptomatic treatment * Dc rocephin * continue levaquin * discharge planning. * repeat labs tomorrow Review of Systems - Review of Systems ENT: negative: Ear Pain, Ear Discharge, Nose Pain, Nose Discharge, Nose Congestion, Mouth Pain, Mouth Swelling, Throat Pain, Throat Swelling, Other Respiratory: negative: Cough, Dry, Shortness of Breath, Hemoptysis, SOB with Excertion, Pleuritic Pain, Sputum, Wheezing Cardiovascular: negative: chest pain, palpitations, orthopnea, paroxysmal nocturnal dyspnea, edema, light headedness, other Gastrointestinal: negative: Nausea, Vomiting, Abdominal Pain, Diarrhea, Constipation, Melena, Hematochezia, Other Genitourinary: negative: Dysuria, Frequency, Incontinence, Hematuria, Retention , Other Musculoskeletal: negative: Neck Pain, Shoulder Pain, Arm Pain, Back Pain, Hand Pain, Leg Pain, Foot Pain, Other - Medications/Allergies Allergies/Adverse Reactions: Allergies Allergy/AdvReac Type Severity Reaction Status Date / Time No Known Allergies Allergy Verified 01/18/18 14:09 Medications: Current Medications Acetaminophen (Tylenol) 500 mg PO Q6H PRN PRN Reason: Mild Pain (1-3) Hydrocodone Bitart/Acetaminophen ([place] 5/325) 1 tab PO Q4H PRN PRN Reason: Moderate Pain (4-6) Last Admin: 02/15/18 04:09 Dose: 1 tab Allopurinol (Zyloprim) 300 mg PO [facility] Last Admin: 02/14/18 20:34 Dose: 300 mg Apixaban (Eliquis) 5 mg PO BID [facility] Last Admin: 02/15/18 08:45 Dose: 5 mg Artificial Tears (Tears Naturale) 2 drop EA EYE PRN PRN PRN Reason: Dry Eyes Baclofen (Lioresal) 5 mg PO TID [facility] Last Admin: 02/15/18 08:45 Dose: 5 mg Bisacodyl (Dulcolax) 10 mg [place] DAILYPRN PRN PRN Reason: Constipation Calcium Carbonate (Tums) 1,000 mg PO Q4H PRN PRN Reason: Heartburn or Indigestion Cholecalciferol (Vitamin D3) 5,000 units PO [facility] Last Admin: 02/14/18 20:35 Dose: 5,000 units Guaifenesin (Robitussin Sf) 200 mg PO Q4H PRN PRN Reason: Cough Hydralazine HCl (Apresoline) 10 mg SLOW IVP Q4H PRN PRN Reason: SBP > 180 and HR < 70 Ceftriaxone Sodium 1 gm/ (Sodium Chloride) 100 mls @ 200 mls/hr IVPB Q24HR [facility] Last Admin: 02/14/18 13:07 Dose: 100 mls Levofloxacin 500 mg/ Device 100 mls @ 100 mls/hr IVPB 0800 [facility] Last Admin: 02/15/18 08:52 Dose: 100 mls Labetalol HCl (Normodyne) 20 mg SLOW IVP Q4H PRN PRN Reason: SBP > 180 and HR >/= 70 Loperamide HCl (Imodium) 2 mg PO PRN PRN PRN Reason: Diarrhea/Loose Stools Loratadine (Claritin) 10 mg PO DAILYPRN PRN PRN Reason: Sinus Symptoms Mineral Oil/White Petrolatum (Eucerin Cream) 0 gm TOP BIDPRN PRN PRN Reason: Dry Skin Ondansetron HCl (Zofran Odt) 4 mg PO Q6H PRN PRN Reason: Nausea/Vomiting Last Admin: 02/13/18 03:42 Dose: 4 mg Ondansetron HCl (Zofran) 4 mg IVP Q6H PRN PRN Reason: Nausea/Vomiting Last Admin: 02/13/18 04:44 Dose: 4 mg Senna/Docusate Sodium (Senokot S) 2 tab PO BID PRN PRN Reason: Constipation Sodium Chloride (Flush - Normal Saline) 10 ml IVF PRN PRN PRN Reason: Saline Flush Last Admin: 02/14/18 13:08 Dose: 10 ml Sodium Chloride ([place] Nasal [place] 0.65%) 0 ml EA NARE QIDPRN PRN PRN Reason: Nasal Congestion Tamsulosin HCl (Flomax) 0.4 mg PO DAILY [facility] Last Admin: 02/15/18 08:45 Dose: 0.4 mg Throat Lozenges (Cepastat Lozenges) 1 yuval PO Q2H PRN PRN Reason: Sore Throat
[2018-02-15 13:13] LABS: A/G Ratio 0.7 (0.7-1.7); Albumin 2.7 g/dL (2.9-4.4); Alpha 1 0.3 g/dL (0.0-0.4); Alpha 2 1.1 g/dL (0.4-1.0); Gamma 1.2 g/dL (0.4-1.8); Globulin, Total 3.7 g/dL (2.2-3.9); M-Spike Not Observed g/dL (Not Observed)
[2018-02-15] MEDS: Allopurinol 300 MG TAB PO SCH (20:35)
[2018-02-15] MEDS: ALPRAZolam 1 MG TAB PO SCH (20:36)
[2018-02-16 05:38] LABS: #Basophils 0.1 thou/uL (0.0-0.2); #Eosinphils 0.2 thou/uL (0.0-0.7); #Monocytes 0.5 thou/uL (0.11-0.59); #Neutrophils 3.5 thou/uL (1.40-6.50); %Basophils 0.8 % (0.0-1.0); %Eosinophils 2.6 % (0.0-10.0); %Lymphocytes 32.3 % (21.0-51.0); %Monocytes 8.5 % (0.0-10.0); %Neutrophils 55.9 % (42.0-75.0); Hemoglobin 8.9 g/dL (14.0-18.0); Mean Corpuscular HGB CONC 33.4 g/dL (32.0-36.0); Mean Corpuscular Hemoglobin 29.6 pg (27.0-31.0); Mean Corpuscular Volume 88.5 fL (78.0-98.0); Mean Platelet Volume 6.8 fL (7.4-10.4); Platelet Count 378 thou/uL (130-400); Red Blood Cell (RBC) Count 3.01 mill/uL (4.70-6.10); White Blood Cell (WBC) Count 6.2 thou/uL (4.8-10.8)
[2018-02-16 05:58] LABS: Anion Gap 9 mmol/L (10-20); BUN (Urea Nitrogen) 14 mg/dL (8.4-25.7); Calc. Creatinine Clearance 111 mL/min (70-130); Calcium 10.7 mg/dL (7.8-10.44); Carbon Dioxide 25 mmol/L (22-29); Chloride 106 mmol/L (98-107); Estimated GFR-MDRD 63; Glucose 102 mg/dL (70-105); Magnesium 1.7 mg/dL (1.6-2.6); Phosphorus 2.4 mg/dL (2.3-4.7); Potassium 3.9 mmol/L (3.5-5.1); Sodium 136 mmol/L (136-145)
[2018-02-16] MEDS: HYDROcodone/Acetaminophen 5/325 mg Tablet PO PRN (06:43)
[2018-02-16 08:00] VITALS: BP 99/71; TEMP 97.8
[2018-02-16] MEDS ORDERED: Bupropion 150 MG SR TAB PO SCH (09:00)
--- NOTE | 2018-02-16 09:06 | PDOC.PN ---
- Subjective Encounter Start Date: 02/16/18 Encounter Start Time: 08:00 Patient seen and examined. No new complaints. No overnight events - Objective Resuscitation Status - Order Detail: 02/11/18 13:23 Resuscitation Status Routine Resuscitation Status: FULL: Full Resuscitation MAR Reviewed: Yes Vital Signs & Weight: Vital Signs (12 hours) Temp Pulse Resp BP Pulse Ox 02/16/18 07:17 97.8 F 100 16 99/71 97 02/16/18 04:37 98.3 F 100 20 107/74 97 02/16/18 00:37 98.6 F 113 H 20 93/63 100 Weight Admit Weight 285 lb 14.4 oz Weight 285 lb 14.4 oz I&O: 02/15/18 02/16/18 02/17/18 06:59 06:59 06:59 Intake Total 4330 2070 Output Total 3775 2075 Balance 555 -5 Result Diagrams: 02/16/18 05:28 02/16/18 05:28 Phys Exam - Physical Examination Constitutional: NAD HEENT: PERRLA, moist MMs, sclera anicteric Neck: no JVD, supple Respiratory: no wheezing, no rales, no rhonchi Cardiovascular: RRR, no significant murmur, no rub Gastrointestinal: soft, non-tender, no distention, positive bowel sounds Musculoskeletal: no edema, pulses present Lymphatic: no nodes Psychiatric: normal affect, A&O x 3 Skin: no rash, normal turgor Dx/Plan (1) UTI (urinary tract infection) due to urinary indwelling catheter Code(s): T83.511A - I/I REACT D/T INDWELLING URETHRAL CATHETER, INIT; N39.0 - URINARY TRACT INFECTION, SITE NOT SPECIFIED Status: Chronic (2) Encephalopathy acute Code(s): G93.40 - ENCEPHALOPATHY, UNSPECIFIED Status: Acute Comment: due to narcotic overdose, now resolved, baseline (3) Abnormal CT of brain Code(s): R90.89 - OTH ABNORMAL FINDINGS ON DIAGNOSTIC IMAGING OF CNSL Status: Acute Comment: CEREBELLAR MASS VS INFRACTION (4) Anxiety and depression Code(s): F41.9 - ANXIETY DISORDER, UNSPECIFIED; F32.9 - MAJOR DEPRESSIVE DISORDER, SINGLE EPISODE, UNSPECIFIED Status: Chronic (5) Chronic anticoagulation Code(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.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 Status: Chronic (6) DM type 2 (diabetes mellitus, type 2) Status: Chronic Comment: (7) Diabetes type 2, controlled Code(s): E11.9 - TYPE 2 DIABETES MELLITUS WITHOUT COMPLICATIONS Status: Chronic (8) Gout Code(s): M10.9 - GOUT, UNSPECIFIED Status: Chronic (9) HTN (hypertension) Code(s): I10 - ESSENTIAL (PRIMARY) HYPERTENSION Status: Chronic Comment: (10) History of pulmonary embolism Code(s): Z86.711 - PERSONAL HISTORY OF PULMONARY EMBOLISM Status: Chronic (11) Obesity (BMI 30-39.9) Code(s): E66.9 - OBESITY, UNSPECIFIED Status: Chronic (12) Paraplegia Code(s): G82.20 - PARAPLEGIA, UNSPECIFIED Status: Chronic (13) Bipolar disorder Code(s): F31.9 - BIPOLAR DISORDER, UNSPECIFIED Status: Chronic (14) Hypercalcemia Code(s): E83.52 - HYPERCALCEMIA Status: Acute (15) Hyperparathyroidism Code(s): E21.3 - HYPERPARATHYROIDISM, UNSPECIFIED Status: Acute (16) Hypomagnesemia Code(s): E83.42 - HYPOMAGNESEMIA Status: Acute (17) Hypophosphatemia Code(s): E83.39 - OTHER DISORDERS OF PHOSPHORUS METABOLISM Status: Acute - Plan cont current plan of care, continue antibiotics, PT/OT, social welfare administrator * medication reviewed as below * symptomatic treatment * see my discharge jj. Review of Systems - Review of Systems ENT: negative: Ear Pain, Ear Discharge, Nose Pain, Nose Discharge, Nose Congestion, Mouth Pain, Mouth Swelling, Throat Pain, Throat Swelling, Other Respiratory: negative: Cough, Dry, Shortness of Breath, Hemoptysis, SOB with Excertion, Pleuritic Pain, Sputum, Wheezing Cardiovascular: negative: chest pain, palpitations, orthopnea, paroxysmal nocturnal dyspnea, edema, light headedness, other Gastrointestinal: negative: Nausea, Vomiting, Abdominal Pain, Diarrhea, Constipation, Melena, Hematochezia, Other Genitourinary: negative: Dysuria, Frequency, Incontinence, Hematuria, Retention , Other Musculoskeletal: negative: Neck Pain, Shoulder Pain, Arm Pain, Back Pain, Hand Pain, Leg Pain, Foot Pain, Other - Medications/Allergies Allergies/Adverse Reactions: Allergies Allergy/AdvReac Type Severity Reaction Status Date / Time No Known Allergies Allergy Verified 01/18/18 14:09 Medications: Current Medications Acetaminophen (Tylenol) 500 mg PO Q6H PRN PRN Reason: Mild Pain (1-3) Hydrocodone Bitart/Acetaminophen ([place] 5/325) 1 tab PO Q4H PRN PRN Reason: Moderate Pain (4-6) Last Admin: 02/16/18 06:43 Dose: 0.5 tab Allopurinol (Zyloprim) 300 mg PO [facility] Last Admin: 02/15/18 20:35 Dose: 300 mg Alprazolam (Xanax) 1 mg PO BID [facility] Last Admin: 02/15/18 20:36 Dose: 1 mg Apixaban (Eliquis) 5 mg PO BID [facility] Last Admin: 02/15/18 20:36 Dose: 5 mg Artificial Tears (Tears Naturale) 2 drop EA EYE PRN PRN PRN Reason: Dry Eyes Baclofen (Lioresal) 5 mg PO TID [facility] Last Admin: 02/15/18 20:35 Dose: 5 mg Bisacodyl (Dulcolax) 10 mg MO DAILYPRN PRN PRN Reason: Constipation Bupropion HCl (Wellbutrin Sr) 150 mg PO DAILY [facility] Calcium Carbonate (Tums) 1,000 mg PO Q4H PRN PRN Reason: Heartburn or Indigestion Cholecalciferol (Vitamin D3) 5,000 units PO [facility] Last Admin: 02/15/18 20:35 Dose: 5,000 units Guaifenesin (Robitussin Sf) 200 mg PO Q4H PRN PRN Reason: Cough Hydralazine HCl (Apresoline) 10 mg SLOW IVP Q4H PRN PRN Reason: SBP > 180 and HR < 70 Levofloxacin 500 mg/ Device 100 mls @ 100 mls/hr IVPB 0800 [facility] Last Admin: 02/15/18 08:52 Dose: 100 mls Labetalol HCl (Normodyne) 20 mg SLOW IVP Q4H PRN PRN Reason: SBP > 180 and HR >/= 70 Loperamide HCl (Imodium) 2 mg PO PRN PRN PRN Reason: Diarrhea/Loose Stools Loratadine (Claritin) 10 mg PO DAILYPRN PRN PRN Reason: Sinus Symptoms Mineral Oil/White Petrolatum (Eucerin Cream) 0 gm TOP BIDPRN PRN PRN Reason: Dry Skin Ondansetron HCl (Zofran Odt) 4 mg PO Q6H PRN PRN Reason: Nausea/Vomiting Last Admin: 02/13/18 03:42 Dose: 4 mg Ondansetron HCl (Zofran) 4 mg IVP Q6H PRN PRN Reason: Nausea/Vomiting Last Admin: 02/13/18 04:44 Dose: 4 mg Senna/Docusate Sodium (Senokot S) 2 tab PO BID PRN PRN Reason: Constipation Sodium Chloride (Flush - Normal Saline) 10 ml IVF PRN PRN PRN Reason: Saline Flush Last Admin: 02/14/18 13:08 Dose: 10 ml Sodium Chloride ([place] Nasal [place] 0.65%) 0 ml EA NARE QIDPRN PRN PRN Reason: Nasal Congestion Tamsulosin HCl (Flomax) 0.4 mg PO DAILY [facility] Last Admin: 02/15/18 08:45 Dose: 0.4 mg Throat Lozenges (Cepastat Lozenges) 1 yuval PO Q2H PRN PRN Reason: Sore Throat
[2018-02-16] MEDS: ALPRAZolam 1 MG TAB PO SCH (09:08)
[2018-02-16] MEDS: Baclofen 10 MG TAB PO SCH (09:08)
[2018-02-16] MEDS: Apixaban 5 MG TAB PO SCH (09:09)
[2018-02-16] MEDS: Tamsulosin HCl 0.4 MG CAP PO SCH (09:09)
--- NOTE | 2018-02-16 10:09 | DIS ---
DATE OF ADMISSION: 02/11/2018 DATE OF DISCHARGE: 02/16/2018 PRIMARY CARE PHYSICIAN: [facility] [place] Call admission. DISCHARGE DISPOSITION: Rehab. PRIMARY DISCHARGE DIAGNOSES: 1. Acute encephalopathy due to metabolic etiology, resolved. 2. Hypercalcemia. 3. Hyperparathyroidism. 4. Vitamin D deficiency. 5. Hypophosphatemia. 6. Urinary tract infection with Cortez catheter. SECONDARY DISCHARGE DIAGNOSES: 1. Paraplegia. 2. Obesity with BMI 35. 3. Anxiety. 4. Depression. 5. Bipolar disorder. 6. Hypertension. 7. History of pulmonary embolism. 8. Gout. PRIMARY PROCEDURE/OPERATION: None. RADIOLOGICAL INVESTIGATION: CT brain showed some abnormality in cerebellum, which was infarct versus something else and we tried to do MRI on this patient, but the patient refused to go for MRI. SIGNIFICANT LABORATORY DATA: WBC 6.2, hemoglobin 8.9, and platelets 378. Sodium 136, potassium 3.9, BUN 14, creatinine 1.43, calcium 10.7, phosphorus 2.4, magnesium 1.7. Serum protein electrophoresis negative, vitamin D3 of 11.4, PTH 378. Urinalysis suggestive of UTI. Urine culture grew Pseudomonas. Blood culture negative. DISCHARGE MEDICATION: 1. Allopurinol 300 mg p.o. at bedtime. 2. Xanax 1 mg p.o. b.i.d. 3. Bupropion 150 mg p.o. daily. 4. Metoprolol 50 mg p.o. b.i.d. 5. Flomax 0.4 mg p.o. daily. 6. Zanaflex 4 mg p.r.n. 7. [place] 10 one tablet q.8 hourly p.r.n. 8. Cipro 500 mg p.o. b.i.d. for 7 days. 9. Eliquis 5 mg p.o. t.i.d. 10. Baclofen 5 mg t.i.d. p.r.n. 11. Lisinopril 10 mg daily. 12. Florastor 250 mg p.o. daily. CONTRAINDICATION: None. CODE STATUS: Full code. INPATIENT CONSULTANTS: None. ALLERGIES: NO KNOWN DRUG ALLERGIES. DISCHARGE PLAN: Posthospital, the patient will follow up with primary care physician. HOSPITAL COURSE: A 52-year-old male, who was admitted by Dr. Bradley Romeo, please see his H and P for further details. The patient was at a rehab. He had recent hospital course at [facility] and subsequently he was discharged to local rehab in [place]. The patient had a Cortez catheter at rehab and he was sent from [facility] because of altered mental status. His all metabolic parameters were abnormal. He also had urinary tract infection, which we related with indwelling Cortez catheter. While in the hospital, we treated him with broad-spectrum antibiotic therapy. These urine cultures grew Pseudomonas and based on culture and sensitivity result, we changed it to Cipro upon discharge. The patient's home medication was continued while in the hospital. This patient was requiring placement and that is why with help of case picker, we arranged his rehab in [facility]. The patient has vitamin D deficiency, hyperparathyroidism. Because of that and that is why we are providing above-mentioned medication. The patient will follow up with primary care physician upon discharge. He will continue vitamin D3 therapy. The patient is seen and examined at bedside today. Please see my progress note from today for further details. Paperwork for discharge was done. Discharge medication reconciliation was done. Total time spent on discharge day was 31 minutes. Job ID: [id number]
--- NOTE | 2018-02-17 17:43 | EKG ---
Test Reason : AMS Blood Pressure : / mmHG Vent. Rate : 099 BPM Atrial Rate : 099 BPM P-R Int : 112 ms QRS Dur : 082 ms QT Int : 336 ms P-R-T Axes : 054 007 -10 degrees QTc Int : 431 ms Normal sinus rhythm Normal ECG Confirmed by VALERIE VARELA ([id number]), manager editorial ELMER ANDERSON ([id number]) on 02/17/2018 5:42:41 PM Referred By: MD VARELA Confirmed By:VALERIE VARELA
== END 2018-02-16 11:40 | DRG 698 ==
LOC: ERS 10:31 → 2SE 15:23 → SURG A 02-12 11:34
PROVIDERS: ADMIT Internal Medicine; ATTEND Internal Medicine
DX: T83.511A Infection and inflammatory reaction due to indwelling urethral catheter, initial encounter (principal); G93.41 Metabolic encephalopathy; G82.20 Paraplegia, unspecified; N39.0 Urinary tract infection, site not specified; I10 Essential (primary) hypertension; E83.52 Hypercalcemia; E55.9 Vitamin D deficiency, unspecified; E83.39 Other disorders of phosphorus metabolism; E66.9 Obesity, unspecified; Z68.35 Body mass index [BMI] 35.0-35.9, adult; Y84.6 Urinary catheterization as the cause of abnormal reaction of the patient, or of later complication, without mention of misadventure at the time of the procedure; F41.9 Anxiety disorder, unspecified; F32.9 Major depressive disorder, single episode, unspecified; M10.9 Gout, unspecified; B96.5 Pseudomonas (aeruginosa) (mallei) (pseudomallei) as the cause of diseases classified elsewhere; Z86.711 Personal history of pulmonary embolism; Z79.01 Long term (current) use of anticoagulants; Z79.899 Other long term (current) drug therapy
CPT/HCPCS: 36415; 36416; 70450; 80048; 81003; 81015; 82306; 83036; 83605; 83735; 83970; 84100; 84165; 84484; 85025; 87040; 87077; 87086; 87149; 87186; 93005; 96361; 96365; 96375; G8981-GP-CM; G8982-GP-CJ; J0696; J1956; J2310; J2405; J3475; J7050; Q0162